=== PATIENT | male | born 1955 | race Caucasian/White ===

== ENCOUNTER → 2019-09-26 11:04 | Outpatient (BNVA) | payer MEDICARE, MEDICAID, SELFPAY | PROVIDERS: Family Provider Nurse Practitioner; Visit Provider Nurse Practitioner | DX: F33.2 Major depressive disorder, recurrent severe without psychotic features (principal); F60.3 Borderline personality disorder; F17.210 Nicotine dependence, cigarettes, uncomplicated | CPT/HCPCS: 99213 ==

== ENCOUNTER → 2019-10-12 13:54 | Outpatient (BNVA) | payer MEDICARE, MEDICAID, SELFPAY | PROVIDERS: Family Provider Nurse Practitioner; Visit Provider Nurse Practitioner | DX: E03.8 Other specified hypothyroidism (principal); J44.9 Chronic obstructive pulmonary disease, unspecified; I10 Essential (primary) hypertension; E78.2 Mixed hyperlipidemia; K21.0 Gastro-esophageal reflux disease with esophagitis; M79.7 Fibromyalgia | CPT/HCPCS: 80053; 84443 ==

== ENCOUNTER → 2019-11-21 07:40 | Outpatient (BNVA) | payer MEDICARE, MEDICAID, SELFPAY | PROVIDERS: Family Provider Nurse Practitioner; Visit Provider Nurse Practitioner | DX: F60.3 Borderline personality disorder (principal); F33.2 Major depressive disorder, recurrent severe without psychotic features | CPT/HCPCS: 99213 ==

== ENCOUNTER → 2020-02-09 07:52 | Outpatient (BNVA) | payer MEDICARE, MEDICAID, SELFPAY | PROVIDERS: Family Provider Nurse Practitioner; Visit Provider Nurse Practitioner | DX: F33.2 Major depressive disorder, recurrent severe without psychotic features (principal); F60.3 Borderline personality disorder | CPT/HCPCS: 99213 ==

== ENCOUNTER → 2020-02-12 09:32 | Outpatient (BNVA) | payer MEDICARE, MEDICAID, SELFPAY | PROVIDERS: Family Provider Nurse Practitioner; Visit Provider Nurse Practitioner | DX: I10 Essential (primary) hypertension (principal); E03.8 Other specified hypothyroidism; J44.9 Chronic obstructive pulmonary disease, unspecified; E78.2 Mixed hyperlipidemia; K21.0 Gastro-esophageal reflux disease with esophagitis; M79.7 Fibromyalgia; R06.02 Shortness of breath | CPT/HCPCS: 80053; 80061; 81000; 84443; 84484; 85025 ==

== ENCOUNTER → 2020-02-13 15:00 | Outpatient (BNVA) | payer MEDICARE, MEDICAID, SELFPAY | PROVIDERS: Family Provider Nurse Practitioner; Visit Provider Nurse Practitioner | DX: I10 Essential (primary) hypertension (principal) | CPT/HCPCS: 71046 ==

== ENCOUNTER 2020-03-07 07:59 | Outpatient (CLI) | payer MEDICARE, MEDICAID, SELFPAY ==
--- NOTE | 2020-03-07 08:10 | ECG_ITS ---
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 Interpretive Statements NAME OF STUDY: LEXISCAN SESTAMIBI STRESS TEST INDICATION: [Chest Pain] Procedure: At the baseline the blood pressure was 134/89mmHg, oxygen saturation 97% with a heart rate of 71 BPM. The electrocardiogram showed normal sinus rhythm, normal axis with normal ST and T waves. Lexiscan was infused over the. Of 20 seconds. A total of 0.4 mg of Lexiscan was infused. The stress phase was continued for total of 5 minutes. Heart rate at the end of stress phase was 79 bpm, oxygen saturation 95% with a blood pressure of 130/69 mmHg. Sestamibi was injected 20 seconds after the Lexiscan injection. Blood pressure at the end of the recovery phase was 131/69 mmHg, oxygen saturation 92% and a heart rate of 74 bpm. Conclusions: 1) Normal EKG response to Lexiscan infusion. 2) No Lexiscan induced chest pain or cardiac arrhythmias. 3) Normal blood pressure and heart rate response. 4) Sestamibi/sestamibi perfusion scan pending see separate report. Electronically Signed On 03-11-2020 12:22:10 CDT by Kelton Holliday M.D. [id number]
--- NOTE | 2020-03-07 08:11 | NMCV_ITS ---
NM elizabeth perf SPECT r/s* [id number] Jason Canela Age: 65 Gender: M : 1955 Exam Date: 03/07/2020 09:36 Ordering Phys: Kelton Holliday M.D ([email or web address]) Technologist: URSULA Kumar Exam Location: [facility] Indications: Chest pain STRESS TEST Please see separate stress test report in [facility] for full findings IMAGE PROTOCOL Rest/Stress 1 Lexiscan Day Radiopharmaceutical Dose (mCi) Administration Site Administered by Rest: Tc-99m 11.0 IV URSULA Kumar Sestamibi Stress:Tc-99m 32.1 IV URSULA Kumar Sestamibi Rest: 07-Mar-2020 60 Discovery 630 Stress: 07-Mar-2020 60 Discovery 630 0.4mg Lexiscan. Images obtained in supine and prone position. SPECT RESULTS Technical Quality: Good Raw Data Analysis: Normal Image Corrections: Patient motion artifact - motion correction applied to supine stress and rest images. Summed Stress Score: 8 Summed Rest Score: 12 Summed Difference Score: 3 PERFUSION FINDINGS There is a small in size, moderate intensity, partially reversible perfusion defect in basal inferolateral and mid inferolateral fried. FUNCTIONAL RESULTS (calculated via Gated SPECT) Stress Image LV EF (%): 50 Stress EDV (mL):137 TID: 1.01 Stress ESV (mL):68 FUNCTIONAL FINDINGS: There is normal left ventricular systolic function. IMPRESSIONS 1) There is a small in size, moderate intensity, partially reversible perfusion defect in basal inferolateral and mid inferolateral fried. This correlates with left circumflex artery territory. However given partial reversibility and presence of artifact, clinical correlation is required. 2) Normal LV systolic function. 3) EKG portion of stress test with was interpreted separately. Kelton Holliday MD (Electronically Signed) Final Date: 07 March 2020 16:55 S
[2020-03-07 08:22] VITALS: BMI 34.7
--- NOTE | 2020-03-07 10:21 | SUR.PREOP ---
Patient reports no pain or discomfort prior to the start of the procedure.
[2020-03-07] MEDS: regadenoson 0.4 Mg/5 ml Syringe IVP (10:22)
[2020-03-07 10:35] VITALS: BP 131/69; PULSE 72
== END 2020-03-07 08:00 | disposition home or self-care (01) ==
LOC: RAD 08:11 → CDL 08:22
PROVIDERS: Family Provider Nurse Practitioner; Visit Provider Internal Medicine
DX: R07.9 Chest pain, unspecified (principal)
CPT/HCPCS: 78452; A9500; J2785

== ENCOUNTER 2020-03-07 10:15 | Outpatient (CLI) | payer MEDICARE, MEDICAID, SELFPAY | END 2020-03-07 23:00 | disposition home or self-care (01) | LOC: CDL 04-15 16:20 | PROVIDERS: PCP Nurse Practitioner; Visit Provider Internal Medicine | DX: R07.9 Chest pain, unspecified (principal) | CPT/HCPCS: 93017 ==

== ENCOUNTER 2020-03-15 08:36 | Outpatient (CLI) | payer MEDICARE, MEDICAID, SELFPAY ==
--- NOTE | 2020-03-15 08:43 | USCV_ITS ---
Jason Canela Age: 65 Gender: M : 1955 Exam Date: 03/15/2020 09:02 Ordering Phys: Kelton Holliday M.D ([email or web address]) Technologist: Reilly Masters [place] [facility] [place]ication: CHEST PAIN BP: 135 / 75 HR: 65 Rhythm: Sinus Technical Quality: Fair MEASUREMENTS (Male / Female) Normal Values 2D ECHO LV Diastolic Diameter PLAX 4.2 cm 4.2 - 5.9 / 3.9 - 5.3 cm LV Systolic Diameter PLAX 2.6 cm IVS Diastolic Thickness 1.1 cm 0.6 - 1.0 / 0.6 - 0.9 cm IVS Systolic Thickness 1.9 cm LVPW Diastolic Thickness 1.1 cm 0.6 - 1.0 / 0.6 - 0.9 cm LVPW Systolic Thickness 1.3 cm LVOT Diameter 2.1 cm LV Ejection Fraction 2D Teich 70.3 % LV Ejection Fraction MOD 2C 51.2 % LV Ejection Fraction 2C AL 50.8 % LA Diameter 4.1 cm LA Width 4.8 cm LA Height 6.1 cm RA Width 3.7 cm RA Height 5.4 cm Aorta at Sinotubular Diameter 1.4 cm M-MODE LV Diastolic Diameter MM 5.7 cm 4.2 - 5.9 / 3.9 - 5.3 cm LV Systolic Diameter MM 3.8 cm LV Ejection Fraction MM Teich 60.9 % IVS Diastolic Thickness MM 1.2 cm 0.6 - 1.0 / 0.6 - 0.9 cm IVS Systolic Thickness MM 1.6 cm LVPW Diastolic Thickness MM 1.6 cm 0.6 - 1.0 / 0.6 - 0.9 cm LVPW Systolic Thickness MM 1.9 cm RV Diastolic Diameter MM 2.4 cm Aortic Annulus Diameter 4.2 cm LA Ao Ratio MM 1.0 MV E Point Septal Separation 0.8 cm DOPPLER AV Peak Velocity 152.0 cm/s LVOT Peak Velocity 86.0 cm/s AV Area Cont Eq vti 2.1 cm squared AV Area Cont Eq pk 1.9 cm squared MV Area PHT 5.0 cm squared Mitral E to A Ratio 0.8 MV E' Velocity 9.0 cm/s Mitral E to MV E' Ratio 7.1 Mitral E to LV E' Lateral Ratio 6.5 Mitral E to LV E' Septal Ratio 7.8 TR Peak Velocity 162.0 cm/s TR Peak Gradient 10.5 mmHg TV Peak E Velocity 101.0 cm/s Right Atrial Pressure 3.0 mmHg Pulmonary Artery Systolic Pressu 13.5 mmHg PV Peak Velocity 73.0 cm/s FINDINGS Left Ventricle Normal left ventricular size and wall thickness. LV systolic function is normal with EF of 50 to 55%. No regional wall motion abnormalities are noted. Grade 1 diastolic dysfunction is present. Right Ventricle The right ventricle is normal in size and function. Right Atrium The right atrium is normal in size. Left Atrium The left atrium is normal in size. Mitral Valve Structurally normal mitral valve without significant stenosis or prolapse. There is no mitral regurgitation. Aortic Valve Structurally normal aortic valve without significant sclerosis or stenosis. There is no aortic regurgitation. Tricuspid Valve Structurally normal tricuspid valve without significant stenosis or regurgitation. RVSP cannot be calculated because of insufficient TR jet. Pulmonic Valve Structurally normal pulmonic valve without significant stenosis. There is no pulmonic regurgitation. Pericardium Normal pericardium without effusion. Aorta Normal ascending aorta dimension. CONCLUSIONS Normal LV systolic function with EF 50 to 55%. Grade 1 diastolic dysfunction. Kelton Holliday MD (Electronically Signed) Final Date: 18 March 2020 07:52 S
== END 2020-03-15 08:37 | disposition home or self-care (01) ==
LOC: US 08:36
PROVIDERS: PCP Nurse Practitioner; Visit Provider Nurse Practitioner
DX: R07.9 Chest pain, unspecified (principal); I51.81 Takotsubo syndrome
CPT/HCPCS: 87635; 93306

== ENCOUNTER → 2020-03-19 06:05 | Day surgery (SDC) | payer MEDICARE, MEDICAID, SELFPAY ==
[2020-03-18 10:17] VITALS: BMI 37.1
[2020-03-19] VITALS (10 sets, daily range): BP systolic 124–164; BP diastolic 85–109; PULSE 67–76; RESP 16–18; TEMP 37.3; O2SAT 92–97
--- NOTE | 2020-03-19 06:00 | XACV_ITS ---
Exam Room: 1 Ht: 178 cm Wt: 117 kg BSA: 2.46 m2 Gender: Male : 1955 Exam Priority: Routine Indication(s): - Abnormal nuclear perfusion study - Chest pain Procedure(s): Procedure Description: Diagnostic procedure Procedure Description: Left Heart Catheterization Procedure Description: Left ventriculography Procedure Description: Coronary Angiography Diagnostic Cath Status: Elective Diagnostic Findings Abnormal stress test. LM has 0% stenosis. LAD has 0% stenosis. RCA has 0% stenosis. mCIRC: Mild 30% stenosis, HÉCTOR: 3 flow. Coronary angiography shows right dominance. Conclusions There is mild coronary artery disease with one vessel disease. Normal left ventricular systolic function. Ejection fraction of 55%. Recommendations Continue current medical management and risk factor modification. Ejection Fraction: 55.0 % Pressures Phase:Rest AO : 111 mmHg / 79 mmHg ( 95 mmHg ) @ 2:30:00 AM 114 mmHg / 79 mmHg ( 97 mmHg ) @ 2:35:00 AM 147 mmHg / 95 mmHg ( 100 mmHg ) @ 2:37:00 AM 147 mmHg / 81 mmHg ( 113 mmHg ) @ 2:48:00 AM 148 mmHg / 81 mmHg ( 115 mmHg ) @ 2:48:00 AM LV : 7 mmHg / -9 mmHg / @ 2:46:00 AM 156 mmHg / 0 mmHg / @ 2:46:00 AM 168 mmHg / -16 mmHg / @ 2:48:00 AM 168 mmHg / -15 mmHg / @ 2:48:00 AM Valves Phase:DefaultPhase AV : 24.0 mmHg @ 8:00:10 AM AV Mean Gradient: 27.0 mmHg @ 8:00:10 AM Clinical Evaluation EBL: 5mL-10mL Procedural Details Pre-Procedure Time Out. Identified patient by full name and date of as verbalized by the patient/guarantor. Does the consent match the physician's order: Yes. Accurate & Complete Informed Consent: Yes. Inpatient/Outpatient History & Physical on Chart: Yes. If H&P is completed, is and addenduem needed: N/A; If yes, is the addendum complete: N/A. Visualize and Verify Site with Patient/Guarantor: N/A. Relevant Radiology Images available: Yes. Pre-op teaching completed and patient verbalized understanding. The risks, benefits, and alternatives of sedation and/or procedure were discussed by physician. The patient agrees to continue. Procedure started. [facility] Clinical Fraility Score: 3: Managing Well. Digital Marketing Analyst Indications: Suspected CAD. Chest Pain Symptom Assessment: Typical Angina Symptoms. Cardiovascular Instability: No. PERRLA. Strong, equal hand rn transitional bilaterally. Lungs clear x 5 lobes. IV Site on Arrival: 20 gauge in the left anticubital. IV Fluids: 0.9% NaCl at KVO. 0 mL infused prior to prosthetics lab technician. Pre Procedural Pulses: bilateral radial was 3+. Pre Procedural Pulses: right dorsalis pedis was 2+. Pre Procedural Pulses: left dorsalis pedis was 1+. Pre Procedural Pulses: bilateral posterior tibial was 1+. Oxygen started at 2liters/min via nasal canula. right groin was prepped with chloroprep then draped in the usual sterile fashion. right radial was prepped with chloroprep then draped in the usual sterile fashion. Physician notified. Baseline sample Acquired. HR: 71 BPM. Equipment: 6F - Radial. Cardiac Cath Pack. ACIST Manifold Kit Model BT 2000. Heparinized Saline (2 units/mL), 1000 mL bag. Physician arrived. Physician scrubbed in. Immediate Pre-Procedure Time Out. Correct Patient: Yes; Correct Procedure: Yes; Correct Site: Yes; Correct Patient Position: Yes; Correct Supplies: Yes; Dried Flammable Prep: Yes; Blood Products Available: N/A. Lidocaine 1% infiltrated to the right radial. Arterial access obtained. A 5 telugu TIG catheter in over the exchange wire. Multiple views taken of right coronary artery. Catheter removed over the exchange wire. A 5 telugu JL4 catheter in over the exchange wire. Multiple views taken of left coronary artery. Patient's family unavailable due to current Covid precautions. Will keep the Daughter, Javier, updated throughout the procedure. The patient's daughter, javier, was updated via telephone by RT Concepcion(R). Physician review of cine films. Catheter removed over the exchange wire. A 5 telugu Angled Pig catheter in over the exchange wire. EDP Sample taken: LV 7/-10,-5; HR: 82 BPM; SpO2: 96%. EDP Sample taken: LV 156/0,14; HR: 79 BPM; SpO2: 97%. LV gram performed in APPIAH @ 10 mL/second for a total of 30 mL. EDP Sample taken: LV 168/-17,18; HR: 80 BPM; SpO2: 97%. Pullback taken: LV 168/-16,20; AO 147/81(113); Mean: 27mmHg, Peak to Peak: 24mmHg, SEP: 11sec/min; HR: 85 BPM; SpO2: 97%. Catheter removed over the exchange wire. Physician review of cine films. Physician scrubbed out. A TR Band was successful obtaining hemostatsis at the Right Radial artery insertion site. TR band placed. Hemostasis obtained. Post Procedure: Pulses reassessed and unchanged. PERRLA. Strong, equal hand rn transitional bilaterally. No VTE prophylaxis required. Medication's Wasted: Lidocaine 1% = 18 mL. Medication's Wasted: Nitro = 49.8 mg. Medication's Wasted: Heparin = 1000 units. Total IV fluids: 63.3 mL. Post-op diagnosis: No nObstructive CAD. Complications: none. Estimated blood loss: 5mL-10mL. Vital chart was stopped. Procedure completed. Patient transferred by wheelchair to CPRU. Site: Right Radial artery Sheath Size: 6 Fr Hemostasis Method: TR Band Hemostasis Success: Successful Procedure Medications Start: 7:20 AM Stop: 7:20 AM Medication: Versed Amount: 1 mg Start: 7:21 AM Stop: 7:21 AM Medication: Fentanyl Amount: 50 mcg Route: I.V. Start: 7: AM Stop: 7: AM Medication: Nitrogylcerin Amount: 200 mcg Route: I.A. Start: 7: AM Stop: 7: AM Medication: Versed Amount: 1 mg Start: 7: AM Stop: 7: AM Medication: Heparin Amount: 5000 units Route: I.V. I, the attending physician, have reviewed and verified all procedure medications. Yes, all medications given per verbal order History/Risk Factors Hypertension: Yes Dyslipidemia: Yes Peripheral Arterial Disease (PAD): No Myocardial Infarction (NV): No Obesity: Yes Renal Disease: No Tobacco Use: Former Dialysis: Current Prior Interventions PCI: No CABG: No Valve Surgery: No Report Signatures Finalized by:Kelton Holliday MD on 03/20/2020 8:53:47 AM
[2020-03-19] MEDS: diphenhydrAMINE 50 mg Capsule PO (06:40)
[2020-03-19 06:55] LABS: Basophils % 0.8 %; Eosinophils # 0.4 10^3/uL (0.0-0.8); Hematocrit 44.9 % (42.0-52.0); Hemoglobin 14.1 g/dL (11.7-16.6); Lymphocytes # 1.3 10^3/uL (0.8-4.8); Lymphocytes % 24.9 %; Mean Corpuscular HGB Conc 31.4 g/dL (30.0-36.0); Mean Corpuscular Hemoglobin 30.7 pg (28.0-34.0); Mean Corpuscular Volume 97.6 fL (80-94); Mean Platelet Volume 10.3 fL (7.4-10.4); Monocytes # 0.6 10^3/uL (0.2-0.9); Monocytes % 11.7 %; Neutrophils # 2.73 10^3/uL (1.8-7.7); Neutrophils % 54.2 %; Nucleated Red Blood Cells % 0 %; Platelet Count 314 10^3/cmm (130-400); Red Cell Distribution Width 12.6 % (12.1-15.1)
[2020-03-19 07:16] LABS: Anion Gap 11.6 (5-19); Blood Urea Nitrogen 6 mg/dL (8-23); Calcium 10.1 mg/dL (8.5-10.5); Carbon Dioxide 28 mmol/L (22-29); Chloride 104 mmol/L (98-107); Glomerular Filtration Rate 97.3 mL/min (90-130); Glucose 105 mg/dL (65-115); Osmolality Calculated 286 mOsm/kg (285-295); Potassium 3.6 mmol/L (3.5-5.1); Sodium 140 mmol/L (136-145)
--- NOTE | 2020-03-19 07:16 | W.PM.OPSUD ---
Surgery/Procedure H&P Update DATE OF PROCEDURE: March 19, 2020 DATE H&P PERFORMED: 02/26/20 H&P UPDATE INFORMATION: I have reviewed H&P completed within last 30 days and I have examined patient prior to procedure PREOP DIAGNOSIS: Abnormal stress test/Chest pain PRIMARY INDICATION FOR PROCEDURE: Abnormal stress test/Chest pain PLANNED PROCEDURE: Operation Date: 03/19/20 07:00 Proposed Procedures p Cardiac Catheterization(Left) - Kelton Holliday M.D PATIENT REASSESSED PRIOR TO SEDATION, WITH NO CHANGE NOTED: Yes PHYSICAL EXAM: alert and oriented x 3 AIRWAY EVAL/ANESTHESIA PLAN: ASA III, Risks, benefits & alternatives of sedation and/or procedure discussed and Patient agrees to continue as planned
[2020-03-19 07:33] LABS: INR 1.06 (0.8-1.2)
--- NOTE | 2020-03-19 09:23 | PC.NURSE ---
TR Band 2ml air released from TR band at this time per protocol. Site unremarkable, no hematoma or bleeding noted at R radial artery site, pulse palpable. No c/o pain. No needs voiced. Will monitor.
--- NOTE | 2020-03-19 10:00 | PC.NURSE ---
TR Band Removed TR band removed at this time, no hematoma or bleeding noted, site unremarkable. Will monitor.
--- NOTE | 2020-03-19 11:06 | PC.NURSE ---
Discharged Discharge instructions given to pt, verbalized understanding. Pt taken to lobby via w/c and discharged home with daughter.
== END | disposition home or self-care (01) ==
PROVIDERS: PCP Nurse Practitioner; Visit Provider Internal Medicine
DX: I25.10 Atherosclerotic heart disease of native coronary artery without angina pectoris (principal); I10 Essential (primary) hypertension; J43.9 Emphysema, unspecified; E03.9 Hypothyroidism, unspecified; E78.2 Mixed hyperlipidemia; Z87.891 Personal history of nicotine dependence
CPT/HCPCS: 12345; 36415; 80048; 85025; 85610; 93452; C1769; C1887; C1894; J1644; J2250; J3010; J3490; J7030; Q0163; Q9967

== ENCOUNTER → 2020-03-27 09:35 | Outpatient (BNVA) | payer MEDICARE, MEDICAID, SELFPAY | PROVIDERS: PCP Nurse Practitioner; Visit Provider Nurse Practitioner Family | DX: I25.119 Atherosclerotic heart disease of native coronary artery with unspecified angina pectoris (principal); E78.2 Mixed hyperlipidemia; I10 Essential (primary) hypertension | CPT/HCPCS: 80048 ==

== ENCOUNTER → 2020-05-09 08:39 | Outpatient (BNVA) | payer MEDICARE, MEDICAID, SELFPAY | PROVIDERS: PCP Nurse Practitioner; Visit Provider Nurse Practitioner | DX: F60.3 Borderline personality disorder (principal); F33.2 Major depressive disorder, recurrent severe without psychotic features | CPT/HCPCS: 99213 ==

== ENCOUNTER → 2020-06-17 16:50 | Outpatient (BNVA) | payer MEDICARE, MEDICAID, SELFPAY | PROVIDERS: PCP Nurse Practitioner; Visit Provider Nurse Practitioner | DX: I10 Essential (primary) hypertension (principal); E03.8 Other specified hypothyroidism; J44.9 Chronic obstructive pulmonary disease, unspecified | CPT/HCPCS: 71046; 80053; 80061; 80178; 81000; 84443; 85025 ==

== ENCOUNTER 2020-06-19 10:46 | Inpatient (IN) | payer MEDICARE, MEDICAID, SELFPAY ==
[2020-06-19 10:58] VITALS: BP 175/98; PULSE 67; RESP 18; TEMP 36.9; O2SAT 94; BMI 35.4
--- NOTE | 2020-06-19 11:23 | CT_ITS ---
WS: [id number] CT HEAD NONCONTRAST HISTORY: new onset hallucinations TECHNIQUE: Contiguous axial imaging performed through the brain in 2.5 mm imaging. Bone and soft tiss ue windows. Sagittal and coronal reformats reviewed. All CT scans at [facility] use at ast one of these dose optimization techniques: automated exposure control; mA and/or kV adjustment pe r patient size (includes targeted exams where dose is matched to clinical indication); or iterative r econstruction. DLP: 788.66 mGy-cm. COMPARISON: 04/17/2011 No acute intracranial hemorrhage, midline shift or mass effect. Mild atrophy and chronic ischemic disease. Bilateral benign basal ganglia calcifications. Ventricles: Normal size with no hydrocephalus. Paranasal sinuses: As visualized are clear. Mastoid air cells: Fluid opacification of the maxillary air cells bilaterally, LEFT greater than RIGH T. Calvarium and scalp: Skull is intact with no soft tissue edema or swelling. Mild atherosclerosis distal vertebral arteries and the intracranial carotid arteries. CT/CT head wo con* [id number] IMPRESSION: 1. No acute intracranial hemorrhage or edema. 2. Mild atrophy and chronic ischemic disease.
--- NOTE | 2020-06-19 11:24 | W.ED.PSYCH ---
HPI - Psych General: Chief Complaint: Psychiatric Symptoms Stated Complaint: phy ref/hallucinations Time Seen by Provider: 06/19/20 11:02 History of Present Illness: HPI Narrative: 65-year-old male patient presents to the emergency department with his daughter. His daughter reports 2-week onset of worsening auditory and visual hallucinations. He is cared for by behavioral health at [facility] [place] as an outpatient. Remains on lithium due to bipolar disorder. He woke this morning stating there are people in the home, they were under the close, he reports could not hear what they were saying, states mumbling. His daughter reports concern as he has become more confused, states his brother lives in the home behind him, he has lived in the same home for 27 years and appears disoriented to current living environment. She reports took him to his primary care yesterday, Brannon Valladares, work-up with chest x-ray and serology testing negative for acute findings. She was advised to bring him to the hospital today as she does not feel he is safe in his own home. She reports decreased sleeping at night, increased sleep during the day. States trazodone does not seem to be effective for insomnia. History of COPD, bipolar disorder, coronary artery disease. Left heart cath completed 03/19/2020 without obstructive lesions identified. + Use of hydrocodone for pain management. MD complaint: altered mental status Onset (ago): day(s) (14) Duration: getting worse Relieving factors: none Exacerbating factors: none Associated psychiatric symptoms: auditory hallucinations and visual hallucinations Associated symptoms: Reports auditory hallucinations and visual hallucinations; Deny homicidal ideation or suicidal ideation Treatments prior to arrival: none Review of Systems General: Reports: 10 or more systems reviewed and unremarkable except in HPI and below Const: Denies: fever(s), chills, fatigue, malaise or diaphoresis Eyes: Denies: blurry vision or eye redness ENMT: Denies: throat pain, dental pain or disequilibrium Card: Denies: chest pain, palpitations or irregular heart rhythm Resp: Denies: dyspnea, productive cough, non-productive cough or wheezing GI: Denies: abdominal pain, nausea or vomiting : Denies: difficulty urinating, dysuria or urinary urgency Musc: Denies: neck pain or back pain Skin/Breast: Denies: rash or pruritus Neuro: Reports: confusion and difficulty communicating thoughts; Denies: headache(s), weakness in extremities, dizziness or behavioral changes Psych: Reports: mood swings (bipolar disorder), difficulty concentrating, visual hallucinations and auditory hallucinations; Denies: hopelessness, change in appetite, irritability, suicidal ideation or homicidal ideation Shorty/Lymph: Denies: easy bruising PFSH ED PFSH: Medical History Adult onset hypothyroidism Alcohol dependence, in remission Borderline personality disorder COPD with chronic bronchitis and emphysema Coronary artery disease Fibromyalgia GERD with esophagitis History of tobacco abuse Hypertension Major depressive disorder, recurrent severe without psychotic features Mixed hyperlipidemia Nicotine dependence, cigarettes, uncomplicated Surgical History History of ankle surgery Left ORIF History of removal of cyst Back Family History Other Cancer Diabetes Hypertension Social History Smoking and tobacco status: former smoker Second hand smoke exposure: No Smoking risk assessment/counseling performed?: Yes Tobacco counseling given: counseling >3 minutes Alcohol intake: former Desire information about alcohol rehabilitation?: No Counseling given: No Desire information about substance/drug rehabilitation?: No Counseling given: No Adopted: No Caregiver/support person: No Lives independently: Yes Housing: Manufactured/Mobile home Marital status: service: No Current occupational status: disabled History of recent travel: No Current gender identity: Male Physical Exam Const: COMMON NORMALS: no acute distress, alert and well nourished EXAM LIMITATIONS: altered mental status GENERAL APPEARANCE: cooperative, comfortable, well kempt and well hydrated; not in distress, not anxious, not combative and not frail appearing NUTRITIONAL APPEARANCE: thin ORIENTATION/CONSCIOUSNESS: Yes awake, Yes oriented to person, Yes oriented to place and Yes confused (to current time and events, month and year); not oriented to time HENMT: COMMON NORMALS: normocephalic, Normal external nose present and moist oral mucous membranes HEAD & SCALP: normocephalic NOSE: Normal external nose present Eye: COMMON NORMALS: Equal, round and reactive pupils present and EOMs intact bilaterally GENERAL EYE: appearance normal, both eyes and all related structures PUPIL: Yes Equal, round and reactive pupils present Neck/C-Spine: COMMON NORMALS: full ROM, no lymphadenopathy and no meningeal signs GENERAL: Yes normal visual inspection and Yes trachea midline CERVICAL SPINE: Yes cervical ROM normal Lymph: LYMPHATIC: no lymphadenopathy noted Chest: COMMONS NORMALS: normal inspection of the chest and normal palpation of entire chest wall CHEST: No abnormal inspection of the chest and No localized rib tenderness with anteroposterior compression Resp: COMMON NORMALS: normal respiratory effort, No retractions and clear to auscultation bilaterally EFFORT & INSPECTION: Yes able to speak in complete sentences and No uses accessory muscles AUSCULTATION: clear to auscultation bilaterally Cardio: COMMON NORMALS: regular rate, regular rhythm, S1 normal heart sound present, S2 normal heart sound present and Peripheral pulses 2+ throughout RATE: regular rate RHYTHM: regular rhythm HEART SOUNDS: S1 normal heart sound present and S2 normal heart sound present PERIPHERAL PULSES: Peripheral pulses 2+ throughout GI: COMMON NORMALS: Normal to inspection, nondistended, normoactive bowel sounds present, Soft to palpation and non-tender INSPECTION: Yes normal to inspection, No Abdominal wall edema, No abdominal distension and No visible herniation PALPATION: Yes Soft to palpation and No Hernia present : COMMON NORMALS: Yes no CVA tenderness BLADDER/KIDNEY EXAM: Yes no CVA tenderness Back/Pelvis: COMMON NORMALS: no CVA tenderness and thoracic and lumbar spine normal to inspection Extremity: COMMON NORMALS: normal to inspection and capillary refill normal Neuro: EZRA COMA SCALE: document GCS findings Ezra coma scale eye opening: Spontaneous Ezra coma scale verbal response: Confused [place] coma scale motor response: Obey commands [place] coma scale total score: 14 COMMON NORMALS: no focal motor deficits SENSORIUM/ORIENTATION: Yes alert, Yes oriented to person, Yes oriented to place, No oriented to time and No Orientation impaired MENINGEAL SIGNS: Yes no meningeal signs SPEECH: speech normal GAIT: Yes Normal gait present MOTOR EXAM: 5/5 motor strength present throughout, no tremor noted and Normal motor muscle tone present throughout Psych: COMMON NORMALS: mental status grossly normal, cooperative and speech normal APPEARANCE: Yes grossly normal and Yes well kempt ATTITUDE: Yes calm and Yes engaged ACTIVITY/MOTOR BEHAVIOR: Yes appropriate eye contact SPEECH: Yes normal speech MOOD & AFFECT: No irritable, No tearful and No fearful THOUGHT PROCESS: disorganized and confused THOUGHT CONTENT: No Suicidality present, No Homicidality present and Yes Hallucination(s) present auditory and visual ATTENTION/CONCENTRATION: Yes attention grossly intact INSIGHT: Fair insight present (Psych) JUDGEMENT: Fair judgement present (Psych) Skin: COMMON NORMALS: no rashes or lesions noted, no wounds and turgor normal GENERAL SKIN EXAM: no rashes or lesions noted and turgor normal RASHES: no rashes HAIR: normal MDM - Psych Lab Data: Labs: Lab Results 06/19/20 06/19/20 06/19/20 Range/Units 11:03 11:03 11:03 WBC 6.9 (4.0-10.0) 10^3/ uL RBC 4.67 (4.1-5.3) 10^6/u L Hgb 14.3 (11.7-16.6) g/dL Hct 44.3 (42.0-52.0) % MCV 94.9 H (80-94) fL MCH 30.6 (28.0-34.0) pg MCHC 32.3 (30.0-36.0) g/dL RDW 12.1 (12.1-15.1) % Plt Count 360 (130-400) 10^3/c mm MPV 10.4 (7.4-10.4) fL Neut % (Auto) 71.5 % Lymph % (Auto) 16.3 % [place] % (Auto) 7.3 % Eos % (Auto) 4.2 % Baso % (Auto) 0.4 % Neut # (Auto) 4.91 (1.8-7.7) 10^3/u L Lymph # (Auto) 1.1 (0.8-4.8) 10^3/u L [place] # (Auto) 0.5 (0.2-0.9) 10^3/u L Eos # (Auto) 0.3 (0.0-0.8) 10^3/u L Baso # (Auto) 0.0 (0.0-0.1) 10^3/u L Nucleated RBC % (a uto) 0 % Nucleated RBCs # 0.0 /100WBC Sodium 137 (136-145) mmol/L Potassium 4.0 (3.5-5.1) mmol/L Chloride 102 (98-107) mmol/L Carbon Dioxide 26 (22-29) mmol/L Anion Gap 13.0 (5-19) BUN 8 (8-23) mg/dL Creatinine 0.7 (0.7-1.2) mg/dL GFR Calculation 113.5 (90-130) mL/min Glucose 104 (65-115) mg/dL Calculated Osmolal ity 283 L (285-295) mOsm/k g Calcium 10.3 (8.5-10.5) mg/dL Total Bilirubin 0.5 (0.15-1.2) mg/dL AST 10 (0-40) U/L ALT 12 (0-41) U/L Alkaline Phosphata se 82 (40-130) IU/L Ammonia (16-60) umol/L Total Protein 7.4 (6.6-8.7) g/dL Albumin 4.2 (3.5-5.2) g/dL Globulin 3.2 (1.3-4.6) g/dL Urine Color (Yellow) Urine Appearance (CLEAR) Urine pH (5-7) Ur Specific Gravit y (1.005-1.030) Urine Protein (Negative) Urine Glucose (UA) (Normal) Urine Ketones (Negative) Urine Blood (Negative) Urine Nitrate (Negative) Urine Bilirubin (Negative) Prot Sulfosalicyli c Acd (Negative) Urine Urobilinogen (Negative) mg/dL Ur Leukocyte Erika ase (Negative) Salicylates < 0.3 L (3-10) mg/dL Urine Opiates Scre en (Negative) ng/mL Acetaminophen < 5.0 L (10-30) ug/mL Ur Barbiturates Sc reen (Negative) ng/mL Ur Phencyclidine S crn (Negative) ng/mL Ur Amphetamines Sc reen (Negative) ng/mL U Benzodiazepines Scrn (Negative) ng/mL [place] 1.3 H (0.6-1.2) mmol/L Urine Cocaine Scre en (Negative) ng/mL U Marijuana (THC) Screen (Negative) ng/mL Ethyl Alcohol < 10 (0-10) mg/dL 06/19/20 06/19/20 06/19/20 Range/Units 11:32 11:32 14:49 WBC (4.0-10.0) 10^3/ uL RBC (4.1-5.3) 10^6/u L Hgb (11.7-16.6) g/dL Hct (42.0-52.0) % MCV (80-94) fL MCH (28.0-34.0) pg MCHC (30.0-36.0) g/dL RDW (12.1-15.1) % Plt Count (130-400) 10^3/c mm MPV (7.4-10.4) fL Neut % (Auto) % Lymph % (Auto) % [place] % (Auto) % Eos % (Auto) % Baso % (Auto) % Neut # (Auto) (1.8-7.7) 10^3/u L Lymph # (Auto) (0.8-4.8) 10^3/u L [place] # (Auto) (0.2-0.9) 10^3/u L Eos # (Auto) (0.0-0.8) 10^3/u L Baso # (Auto) (0.0-0.1) 10^3/u L Nucleated RBC % (a uto) % Nucleated RBCs # /100WBC Sodium (136-145) mmol/L Potassium (3.5-5.1) mmol/L Chloride (98-107) mmol/L Carbon Dioxide (22-29) mmol/L Anion Gap (5-19) BUN (8-23) mg/dL Creatinine (0.7-1.2) mg/dL GFR Calculation (90-130) mL/min Glucose (65-115) mg/dL Calculated Osmolal ity (285-295) mOsm/k g Calcium (8.5-10.5) mg/dL Total Bilirubin (0.15-1.2) mg/dL AST (0-40) U/L ALT (0-41) U/L Alkaline Phosphata se (40-130) IU/L Ammonia 24 (16-60) umol/L Total Protein (6.6-8.7) g/dL Albumin (3.5-5.2) g/dL Globulin (1.3-4.6) g/dL Urine Color Yellow (Yellow) Urine Appearance Clear (CLEAR) Urine pH 9 H (5-7) Ur Specific Gravit y 1.010 (1.005-1.030) Urine Protein Neg (Negative) Urine Glucose (UA) Norm (Normal) Urine Ketones Negative (Negative) Urine Blood Neg (Negative) Urine Nitrate Negative (Negative) Urine Bilirubin Neg (Negative) Prot Sulfosalicyli c Acd Negative (Negative) Urine Urobilinogen Norm (Negative) mg/dL Ur Leukocyte Erika ase Negative (Negative) Salicylates (3-10) mg/dL Urine Opiates Scre en Positive H (Negative) ng/mL Acetaminophen (10-30) ug/mL Ur Barbiturates Sc reen Negative (Negative) ng/mL Ur Phencyclidine S crn Negative (Negative) ng/mL Ur Amphetamines Sc reen Negative (Negative) ng/mL U Benzodiazepines Scrn Negative (Negative) ng/mL [place] (0.6-1.2) mmol/L Urine Cocaine Scre en Negative (Negative) ng/mL U Marijuana (THC) Screen Negative (Negative) ng/mL Ethyl Alcohol (0-10) mg/dL Imaging Data^: CXR: Radiologist's impression: [address] [address] XRay Report Signed Patient: Jason Canela #: [id number] : 6Acct#:[id number] Age/Sex: 65 / MADM Date: 06/17/20 Loc: ALTRoom/Bed: Attending Dr: Brannon RODRIGUEZ Ordering Provider/Ordering MD: Brannon Valladares APN Date of Service: 06/17/20 Procedure(s): XR chest 2V* [id number] Accession Number(s): [id number] Report Number: [id number] PROCEDURE INFORMATION: Exam: XR Chest, 2 Views Exam date and time: 06/17/2020 4:59 PM Age: 65 years old Clinical indication: Condition or disease; Lung condition and disease; Copd; Complications not specified; Prior surgery; Surgery type: Heart cath; Additional info: J44.9 - chronic obstructive pulmonary disease, unspecified TECHNIQUE: Imaging protocol: XR of the chest Views: 2 views. COMPARISON: CR XR chest 2V* [id number] 02/13/2020 2:59 PM FINDINGS: Lungs: There is overinflation of the lungs consistent with COPD. No pneumonia is seen. Pleural space: Unremarkable. No pleural effusion. No pneumothorax. Heart/Mediastinum: Unremarkable. No cardiomegaly. Bones/joints: Degenerative changes are present in the spine with osteophyte formation. XR/XR chest 2V* [id number] IMPRESSION: 1. Overinflated lungs consistent with COPD. 2. No acute abnormalities are seen. Dictated By:Jason Sesay Signed By:Jason SesaySignmp Date/Time:06/18/20721 DD/ 9 CT Head: Radiologist's impression: [address] [address] [address] Scan Report Signed Patient: Jason Canela #: [id number] : 6Acct#:[id number] Age/Sex: 65 / MADM Date: 06/19/20 Loc: ERRoom/Bed: Attending Dr: Ordering Provider/Ordering MD: Myrtle Beckett Date of Service: 06/19/20 Procedure(s): CT head wo con* [id number] Accession Number(s): [id number] Report Number: [id number] WS: [id number] CT HEAD NONCONTRAST HISTORY: new onset hallucinations TECHNIQUE: Contiguous axial imaging performed through the brain in 2.5 mm imaging. Bone and soft tissue windows. Sagittal and coronal reformats reviewed. All CT scans at [facility] use at least one of these dose optimization techniques: automated exposure control; mA and/or kV adjustment per patient size (includes targeted exams where dose is matched to clinical indication); or iterative reconstruction. DLP: 788.66 mGy-cm. COMPARISON: 04/17/2011 No acute intracranial hemorrhage, midline shift or mass effect. Mild atrophy and chronic ischemic disease. Bilateral benign basal ganglia calcifications. Ventricles: Normal size with no hydrocephalus. Paranasal sinuses: As visualized are clear. Mastoid air cells: Fluid opacification of the maxillary air cells bilaterally, LEFT greater than RIGHT. Calvarium and scalp: Skull is intact with no soft tissue edema or swelling. Mild atherosclerosis distal vertebral arteries and the intracranial carotid arteries. CT/CT head wo con* [id number] IMPRESSION: 1. No acute intracranial hemorrhage or edema. 2. Mild atrophy and chronic ischemic disease. Dictated By:Cassy Schmidt DO Signed By:Cassy Schmidt DOSigned Date/Time:06/19/20 1254 DD/ 1251 Discharge Plan Discharge Admit Provider: Jerry Colon Coding Level of Care Code ED Generation Technician for Chg Fwd Exam Comprehensive
[2020-06-19 11:29] LABS: Basophils % 0.4 %; Eosinophils # 0.3 10^3/uL (0.0-0.8); Eosinophils % 4.2 %; Hematocrit 44.3 % (42.0-52.0); Hemoglobin 14.3 g/dL (11.7-16.6); Lymphocytes # 1.1 10^3/uL (0.8-4.8); Lymphocytes % 16.3 %; Mean Corpuscular HGB Conc 32.3 g/dL (30.0-36.0); Mean Corpuscular Hemoglobin 30.6 pg (28.0-34.0); Mean Corpuscular Volume 94.9 fL (80-94); Mean Platelet Volume 10.4 fL (7.4-10.4); Monocytes # 0.5 10^3/uL (0.2-0.9); Monocytes % 7.3 %; Neutrophils # 4.91 10^3/uL (1.8-7.7); Neutrophils % 71.5 %; Nucleated Red Blood Cells % 0 %; Platelet Count 360 10^3/cmm (130-400); Red Blood Count 4.67 10^6/uL (4.1-5.3); Red Cell Distribution Width 12.1 % (12.1-15.1); White Blood Count 6.9 10^3/uL (4.0-10.0)
[2020-06-19 11:44] LABS: Lithium 1.3 mmol/L (0.6-1.2)
[2020-06-19 11:45] LABS: Alanine Aminotransferase 12 U/L (0-41); Albumin Level 4.2 g/dL (3.5-5.2); Alkaline Phosphatase 82 IU/L (40-130); Aspartate Amino Transferase 10 U/L (0-40); Blood Urea Nitrogen 8 mg/dL (8-23); Calcium 10.3 mg/dL (8.5-10.5); Carbon Dioxide 26 mmol/L (22-29); Chloride 102 mmol/L (98-107); Globulin 3.2 g/dL (1.3-4.6); Glomerular Filtration Rate 113.5 mL/min (90-130); Glucose 104 mg/dL (65-115); Osmolality Calculated 283 mOsm/kg (285-295); Sodium 137 mmol/L (136-145); Total Bilirubin 0.5 mg/dL (0.15-1.2); Total Protein 7.4 g/dL (6.6-8.7)
[2020-06-19 11:48] LABS: Acetaminophen < 5.0 ug/mL (10-30); Alcohol Level < 10 mg/dL (0-10); Salicylate < 0.3 mg/dL (3-10)
[2020-06-19 11:58] LABS: Amphetamines Screen Urine Negative (Negative); Barbiturates Screen Urine Negative (Negative); Benzodiazepines Screen Urine Negative (Negative); Cocaine Screen Urine Negative (Negative); Opiate Screen Urine Positive (Negative); PCP Screen Urine Negative (Negative); THC Screen Urine Negative (Negative)
[2020-06-19 12:58] LABS: Add Urine Microscopic? NO
[2020-06-19 13:08] LABS: Bilirubin Urine Neg (Negative); Blood Urine Neg (Negative); Glucose Urine UA Norm (Normal); Ketones Urine Negative (Negative); Nitrate Urine Negative (Negative); Protein Urine Neg (Negative); Urine Appearance Clear (CLEAR); Urine Color Yellow (Yellow); Urobilinogen Urine Norm (Negative); pH Urine 9 (5-7)
[2020-06-19 13:09] LABS: Leukocyte Esterase Urine Negative (Negative); Sulfosalicylic Acid Urine Negative (Negative)
--- NOTE | 2020-06-19 14:38 | P.CONIM_ITS ---
Providers/Reason For Consult Consulting Physican/Specialty*: Kayley Mesa MD, Hospitalist Reason for Consult*: Medical management Requesting Physcian: Dr. Colon Attending Physician: Dr. Colon Primary Care Provider: MICHAEL Duenas History of Present Illness History of Present Illness Jason Canela is a 65 year old male with PMHx noted below with PMHx noted below presents accompanied by his daughter due to ongoing and worsening auditory and visual hallucinations, intermittent intervals of confusion for the past several days. Daughter is at bedside and provides much of the history as patient is quite difficult to understand often with noted mumbling and slurred speech and words that do not seem to make sense. He is very pleasant during my encounter and cooperative, able to follow simple commands. Patient was living alone and family has been checking on him regularly, daughter and her mother have been checking on the patient, setting out his medications making sure he takes his medications as prescribed, deny any changes to his medications recently, no over or under medication. He has a chronic unsteady gait, has had some intermittent confusion in the past but this seems to have been more obvious recently, with him noted to be talking to people who were not there and stating that the voices communicating with him. He has not had any seizure-like activity that they witnessed, no episodes of bowel incontinence though he has some intermittent urinary incontinence. He has a known history of bipolar disorder and is on lithium chronically. Due to concern for ongoing deterioration patient's daughter took him to see his primary care provider who ran some tests including CBC, CMP, TSH, as far as she knows labs were normal except for elevated TSH. She has been trying to contact patient psychiatrist with no success. Patient has not had any violent or behavioral outbursts, has not had any suicidal or homicidal thoughts as far as she is aware. Has battled severe depression in the past often triggered by relational issues, initially when he got and after the passing of his long-term partner, both times he required psychiatric evaluation on an inpatient basis. He has not had any recurrent falls and nothing recently. He quit smoking 1 to 2 years ago, does not drink alcohol and does not use any drugs. Work-up so far indicates normal CBC, normal chemistry, normal LFTs, urinalysis that is negative, urine drug screen that is positive for opiates which patient takes chronically, lithium level of 1.3, negative EtOH level, unremarkable CT head. Blood pressure somewhat elevated but vital signs are otherwise stable. Hospitalist consult is requested for medical management and to investigate other non-psychiatric causes for behavioral change. He will be admitted to [facility]. Review of Systems Const: Reports: change in sleep pattern (poor sleep); Denies: fever(s), chills, change in appetite or fatigue Eyes: Denies: change in vision ENMT: Denies: odynophagia Card: Denies: chest pain, swelling of feet/ankles or lightheadedness Resp: Denies: dyspnea, productive cough or non-productive cough GI: Denies: abdominal pain, nausea, vomiting, fecal incontinence or hematoch ezia : Reports: urinary incontinence (intermittent, chronic) Musc: Denies: back pain Skin/Breast: Reports: dry skin; Denies: rash Neuro: Reports: weakness in extremities and confusion; Denies: numbness in extremities, frequent falls or seizure-like activity Psych: Reports: visual hallucinations and auditory hallucinations; Denies: anxiety, tactile hallucinations, suicidal ideation or homicidal ideation Meds/Allergies Home Medications and Allergies Home Medications Medication Instructions Recorded Confirmed Last Taken Type hydrocodone 10 mg-acetaminophen 1 - 2 tab PO Q4H PRN tab 09/26/19 06/19/20 06/19/20 09:00 History 325 mg tablet albuterol sulfate 90 mcg/actuation 2 inh INHALATION Q4H PRN #18 gm 02/12/20 06/19/20 Unknown Rx aerosol inhaler fluticasone fur. 100 mcg-umeclid 1 inh INHALATION DAILY #28 each 02/12/20 06/19/20 06/19/20 Rx 62.5 mcg-vilant 25 mcg inhalat.powder metoprolol tartrate 25 mg tablet 12.5 mg PO BID #90 tab 03/27/20 06/19/20 Unknown Rx atorvastatin 20 mg tablet 20 mg PO DAILY #30 tab 04/28/20 06/19/20 Unknown Rx famotidine 40 mg tablet 40 mg PO Q12H #60 tab 04/28/20 06/19/20 Unknown Rx hydralazine 50 mg tablet 50 mg PO Q12H #60 tab 04/28/20 06/19/20 Unknown Rx meloxicam 15 mg tablet 15 mg PO DAILY #30 tab 04/28/20 06/19/20 Unknown Rx isosorbide mononitrate 30 mg 30 mg PO QAM #30 tab 04/30/20 06/19/20 Unknown Rx tablet,extended release 24 hr levothyroxine 100 mcg tablet 100 mcg PO DAILY #30 tab 04/30/20 06/19/20 Unknown Rx lisinopril 20 1 tab PO DAILY #30 tab 04/30/20 06/19/20 Unknown Rx mg-hydrochlorothiazide 25 mg tablet duloxetine 60 mg capsule,delayed 120 mg PO DAILY #60 cap 05/08/20 06/19/20 Unknown Rx release acetaminophen [Tylenol Extra 1,000 - 1,500 mg PO PRN 06/19/20 06/19/20 Unknown History Strength] diphenhydramine-acetaminophen 2 - 3 tab PO PRN 06/19/20 06/19/20 06/18/20 History [Tylenol PM Extra Strength] lithium carbonate 300 mg PO QAM 06/19/20 06/19/20 Unknown History lithium carbonate 600 mg PO BEDTIME 06/19/20 06/19/20 Unknown History trazodone 100 mg PO BEDTIME 06/19/20 06/19/20 Unknown History Allergies Allergy/AdvReac Type Severity Reaction Status Date / Time No Known Allergies Allergy Verified 06/19/20 11:35 PFSH Acute PFSH: Medical History Adult onset hypothyroidism Alcohol dependence, in remission Borderline personality disorder COPD with chronic bronchitis and emphysema Coronary artery disease Fibromyalgia GERD with esophagitis History of tobacco abuse Hypertension Major depressive disorder, recurrent severe without psychotic features Mixed hyperlipidemia Nicotine dependence, cigarettes, uncomplicated Surgical History History of ankle surgery Left ORIF History of removal of cyst Back Family History (Updated 06/19/20 @ 19:39 by Kayley Mesa MD) Other Cancer Diabetes Hypertension Psychiatric illness Social History (Updated 06/19/20 @ 19:40 by Kayley Mesa MD) Smoking and tobacco status: former smoker Quit status (tobacco): has quit using tobacco Year quit tobacco: 1-2 yrs ago Second hand smoke exposure: No Smoking risk assessment/counseling performed?: Yes Tobacco counseling given: co unseling >3 minutes Alcohol intake: former Desire information about alcohol rehabilitation?: No Counseling given: No Desire information about substance/drug rehabilitation?: No Counseling given: No Adopted: No Caregiver/support person: No Lives independently: Yes Housing: Manufactured/Mobile home Marital status: service: No Current occupational status: disabled History of recent travel: No Current gender identity: Male Vitals/I&O/Wt Last Vital Signs Temp 98.5 F 06/19/20 10:58 Pulse 67 06/19/20 10:58 Resp 18 06/19/20 10:58 BP 175/98 06/19/20 10:58 Pulse Ox 94 06/19/20 10:58 Weight last 48 hrs Weight 118.388 kg Physical Exam Const: COMMON NORMALS: no acute distress and alert GENERAL APPEARANCE: cooperative, comfortable and disheveled NUTRITIONAL APPEARANCE: overweight ORIENTATION/CONSCIOUSNESS: Yes awake and Yes confused HENMT: COMMON NORMALS: normocephalic, atraumatic, hearing grossly normal bilaterally and moist oral mucous membranes HEAD & SCALP: normocephalic and atraumatic TEETH & GINGIVA: Yes poor dentition Eye: COMMON NORMALS: Equal, round and reactive pupils present, EOMs intact bilaterally and conjunctivae normal CONJUNCTIVA: Yes conjunctivae normal PUPIL: Yes Equal, round and reactive pupils present Neck/C-Spine: COMMON NORMALS: full ROM GENERAL: Yes normal visual inspection and Yes trachea midline Resp: COMMON NORMALS: normal respiratory effort, No retractions, No use of accessory muscles and clear to auscultation bilaterally EFFORT & INSPECTION: Yes able to speak in complete sentences, Yes symmetric chest movement and No tachypneic AUSCULTATION: clear to auscultation bilaterally OTHER: -on RA Cardio: COMMON NORMALS: regular rate, regular rhythm, S1 normal heart sound present, S2 normal heart sound present and No murmurs present (Cardio) RATE: regular rate RHYTHM: regular rhythm HEART SOUNDS: S1 normal heart sound present and S2 normal heart sound present GI: COMMON NORMALS: Normal to inspection, nondistended, normoactive bowel sounds present, Soft to palpation and non-tender INSPECTION: Yes central obesity PALPATION: Yes Soft to palpation Extremity: COMMON NORMALS: normal to inspection, full ROM, no clubbing, cyanosis or edema and no pedal edema Neuro: COMMON NORMALS: moves all extremities, no focal motor deficits and no sensory deficits noted SENSORIUM/ORIENTATION: Yes alert and Yes Orientation impaired COORDINATION/BALANCE: does not sway with eyes open SPEECH: abnormal speech Details: garbled GAIT: Yes Other gait observations present (initially shuffling gait) MOTOR EXAM: 5/5 motor strength present throughout and Tremors during motor activity present (mild resting RUE tremor) COORDINATION: does not sway with eyes open Psych: COMMON NORMALS: cooperative and normal affect ATTITUDE: Yes calm ACTIVITY/MOTOR BEHAVIOR: Yes appropriate eye contact SPEECH: Yes slurred THOUGHT PROCESS: confused and Loose association thought process present THOUGHT CONTENT: Yes Hallucination(s) present auditory and visual INSIGHT: Poor insight present (Psych) JUDGEMENT: Limited judgement present (Psych) Skin: COMMON NORMALS: no rashes or lesions noted, no jaundice, no petechiae and no mottling GENERAL SKIN EXAM: no rashes or lesions noted A&P Assessment and plan (1) Hallucinations: -has had auditory and visual hallucinations for some time, along with intermittent confusion, garbled and slurred speech -no apparent neuro deficits on exam -CT head with noted mild atrophy and chronic ischemic disease -check vitamin B12, folate, vitamin B1, TSH, A1c -fall precautions -no apparent infectious etiology, afebrile, no leukocytosis; may consider LP if febrile Status: Acute (2) Coronary artery disease: -Echo (02/2020): EF=50-55%, no RWMA, G1DD -s/p LHC (03/2020): mild CAD, 1-vessel disease, medical management recommended -resume meds Status: Chronic Qualifiers: Coronary Disease-Associated Artery/Lesion type: [place] artery [place] vs. transplanted heart: shawnee heart Associated angina: with unspecified angina Qualified Code(s): I25.119 - Atherosclerotic heart disease of sh[place]nee coronary artery with unspecified angina pectoris (3) GERD with esophagitis: -resume famotidine Status: Chronic Qualifiers: Esophagitis bleeding: without hemorrhage Qualified Code(s): K21.00 - Gastro-esophageal reflux disease with esophagitis, without bleeding (4) Fibromyalgia: -pain control as needed Status: Chronic (5) Hypertension: -monitor vital signs -resume oral antihypertensives Status: Chronic Qualifiers: Hypertension type: essential hypertension Qualified Code(s): I10 - Essential (primary) hypertension (6) Adult onset hypothyroidism: -check TSH -resume levothyroxine Status: Chronic (7) COPD with chronic bronchitis and emphysema: -no acute exacerbation -inhaler treatments PRN Status: Chronic Additional A&P Information -Morbid obesity: BMI-35 kg/m2 -hx of bipolar disorder, insomnia -cardiac diet as tolerated -GI ppx with famotidine -Dispo: per Psych -Code status: FULL code -Admit to [facility] -Thank you for this consult, will continue to follow along with you Consult Attestations Medical Necessity Statement: Jason Canela's hospital stay will require greater than 2 midnights for management of altered mental status, hallucinations. Time Spent in Patient Care: Greater than 35 minutes (>than 50% of time spent in counselling and/or direct pt care on unit) . Coding Level of Care Code Acute Bar Machine Operator for Chg Fwd Exam Comprehensive Diagnoses Hallucinations R44.3 Coronary artery disease I25.119 Coronary Disease-Associated Artery/Lesion type: [place] artery [place] vs. transplanted heart: sh[place] heart Associated angina: with unspecified angina GERD with esophagitis K21.00 Esophagitis bleeding: without hemorrhage Fibromyalgia M79.7 Hypertension I10 Hypertension type: essential hypertension Adult onset hypothyroidism E03.8 COPD with chronic bronchitis and emphysema J44.9
[2020-06-19 15:23] LABS: Ammonia 24 umol/L (16-60)
--- NOTE | 2020-06-19 15:46 | PC.NURSE ---
report called to hortencia rivera
[2020-06-19 16:23] VITALS: BP 152/101; PULSE 74; RESP 16; TEMP 36.8; O2SAT 96
[2020-06-19] MEDS: metoprolol tartrate 25 mg Tablet 12.5 MG PO (16:38)
[2020-06-19 20:08] VITALS: BP 118/73; PULSE 77; RESP 18; TEMP 36.7; O2SAT 90
[2020-06-19] MEDS: atorvastatin 40 mg Tablet 20 MG PO (20:22)
[2020-06-19] MEDS: famotidine 20 mg Tablet 40 MG PO (20:22)
[2020-06-19] MEDS: hyDRALAzine 50 mg Tablet PO (20:23)
[2020-06-20 06:00] VITALS: BP 154/76; PULSE 76; RESP 16; TEMP 36.7; O2SAT 95
[2020-06-20] MEDS: hyDRALAzine 50 mg Tablet PO ×2 (08:54→21:07)
[2020-06-20] MEDS: lisinopril 20 mg Tablet PO (08:55)
[2020-06-20] MEDS: isosorbide mononitrate ER 30 mg Tablet PO (08:55)
[2020-06-20] MEDS: meloxicam 7.5 mg tablet 15 MG PO (08:55)
[2020-06-20] MEDS: levothyroxine 100 mcg Tablet PO (08:55)
[2020-06-20] MEDS: hydroCHLOROthiazide 25 mg Tablet PO (08:55)
[2020-06-20] MEDS: famotidine 20 mg Tablet 40 MG PO ×2 (08:55→21:04)
[2020-06-20] MEDS: metoprolol tartrate 25 mg Tablet 12.5 MG PO ×2 (08:55→17:14)
--- NOTE | 2020-06-20 11:05 | PM.NHP ---
Providers/Chief Complaint Admitting Physician: Jerry Colon MD Primary Care Provider: MICHAEL Duenas Chief Complaint: phy ref/hallucinations HPI NPU History of Present Illness Jason Canela is a 65 year old male who presented to the emergency department with the following report: Chief Complaint: Psychiatric Symptoms Stated Complaint: phy ref/hallucinations Time Seen by Provider: 06/19/20 11:02 History of Present Illness: HPI Narrative: 65-year-old male patient presents to the emergency department with his daughter. His daughter reports 2-week onset of worsening auditory and visual hallucinations. He is cared for by behavioral health at [facility] as an outpatient. Remains on lithium due to bipolar disorder. He woke this morning stating there are people in the home, they were under the close, he reports could not hear what they were saying, states mumbling. His daughter reports concern as he has become more confused, states his brother lives in the home behind him, he has lived in the same home for 27 years and appears disoriented to current living environment. She reports took him to his primary care yesterday, Brannon Valladares, work-up with chest x-ray and serology testing negative for acute findings. She was advised to bring him to the hospital today as she does not feel he is safe in his own home. She reports decreased sleeping at night, increased sleep during the day. States trazodone does not seem to be effective for insomnia. History of COPD, bipolar disorder, coronary artery disease. Left heart cath completed 03/19/2020 without obstructive lesions identified. + Use of hydrocodone for pain management. complaint: altered mental status Onset (ago): day(s) (14) Duration: getting worse Relieving factors: none Exacerbating factors: none Associated psychiatric symptoms: auditory hallucinations and visual hallucinations Associated symptoms: Reports auditory hallucinations and visual hallucinations; Deny homicidal ideation or suicidal ideation Treatments prior to arrival: none. He was admitted to the neuropsychiatric unit for definitive treatment of those issues. He endorses a history of psychiatric hospitalization likely 4 times before, 1 in [place] 3 here. He endorses follow-up at [facility]. His last visit was 05/09/2020. He first started seeing his current practitioner in March 2018. 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 Our first electronic records of his [facility] appointments begins in 2004. [facility] Outpatient Progress Note TIME IN: 899 TIME OUT: 929 CHIEF COMPLAINT: Follow-up. SUBJECTIVE: RECENT/INTERVAL HISTORY: Jason is a 63 yr old male who presents to [facility] today for medication management and follow up for his depression. He was last seen February 23. Jason reports his girlfriend last month. She was 55 years old and on her birthday due to complications of her diabetes. He states after that he felt suicidal and told his son that he needed to go to the hospital. Jason lives with his 25-year-old son. He went to [facility] emergency room and due to no psychiatric beds available was transferred to [facility]. He states he was in the hospital 4 days before he was sent home. Jason states they change to have his medicines but he was unsure what the change was. We called his pharmacy [facility] to confirm his medications. Jason's lithium was decreased to 300 mg twice per day, he was started on trazodone 100 mg at bedtime, his Effexor was stopped and he was started on Cymbalta 60 mg daily. Jason states he was feeling somewhat better when he was discharged. States he was having a little bit more energy and he was starting to eat again. He has been taken these new medications for about 2 weeks. Jason reports high anxiety and feels as though he has been having anxiety attacks at time. He states he doesn't like staying at home by himself. When his son goes to work he gets up and leaves the house. When asked what he goes to do he states he has even just sat in the parking lot of the gas station. Jason states he quit smoking 2 weeks ago after his girlfriend . 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 He is treated by Dr. Garcia at the pain management clinic. I discussed with Jason that it takes these medications a while to get in his system and to work at their fullest. We will not change medicines today and give these medicines more time to work and follow-up frequently. We will check his lithium level at his next visit. SLEEP: No complaints. MOOD: Anxious. APPETITE: reported as adequate; tolerating medications well LEVEL OF ENERGY: Adequate ABILITY TO DO ADL'S: Adequate LEVEL OF ANXIETY: High ABILITY TO ENJOY LIFE: Decreased FRIGHTENING, UNCOMFORTABLE OR RACING THOUGHTS: Denies THOUGHT OF , SUICIDE, OR VIOLENCE TOWARD OTHERS: Denies HEARING VOICES SEEING VISIONS: Denies OBJECTIVE: GENERAL:/ APPEARANCE: Dressed appropriately for season; good hygiene. VITAL SIGNS: Reviewed and in chart. ORIENTATION: The patient is alert and oriented X4. THOUGHT PROCESS: Goal-directed and logical. AFFECT/MOOD: Patient's affect is euthymic. SPEECH/LANGUAGE: Patient is able to use speech and language to communicate effectively. INSIGHT/JUDGMENT: Insight and judgment is fair. FUND OF KNOWLEDGE: Estimated average. ATTENTION/CONCENTRATION/MEMORY: The patient is able to pay attention and concentrate as we talk during the session today. GAIT/MUSCLE TONE/STRENGTH: Adequate, as the patient walks back to the office today. DIAGNOSTICS: LABORATORIES: Will repeat lithium level at next visit. ASSESSMENT: Major depression severe recurrent F 33.2 Alcoholism currently in remission F10.21 Borderline personality disorder F60.3 He presents reporting that he has been on the lithium for some time. He has taken different antipsychotics in the past. We get collateral information that his family has been concerned and reaching out to [facility] but has been somewhat disappointed in the response. They report that they understand the HIPAA guidelines but I found to be of assistance of their brother. He denies smoking cigarettes but does report that he did smoke cigarettes and cigars in the past. He reports that he does not drink alcohol with any regularity. He denies smoking marijuana or using any other illicit drugs. He is never gone to a drug rehab and never had a DUI. He denies any suicide attempts in the past but does report having suicidal thoughts but reports that that has been years. But concern his family likely is having his he does endorse believing that there are people that live in his house/trailer because he says he hears them talking to him and he is convinced that they are there he just cannot find them. We discussed getting a second lithium reading because the first 1 came back 1.3 but it was just taken randomly. We discussed getting a trough level and then deciding what to do with the lithium. Then we discussed the risks, benefits and alternatives of starting Invega and he understood and agreed to proceed as is documented in this note. Psychiatric history: As above. Substance abuse history: As above. Developmental history: He denies any problems with his or delivery, reports that he learned to walk and talk and met his developmental milestones on time, and denies any memory of speech therapy but does report having learning support/special education classes. Psychosocial: He reports that his parents were together when he was born and that he is the 11th of 11 children with 7 brothers and 3 sisters. He denies that his parents had any other children with any other partners. He reports that his childhood was happy and he denies any recollection of emotional, physical or sexual abuse. He reports that he graduated from high school in [employer]. He reports that he heterosexual with his longest relationship was about 15 years. He reports he was 1 time once. That he has 1 son and 1 daughter, that he has never been in the and he denies any significant sikhism belief system. He reports his longest employment was at the [employer] reporting that he worked there with his father at one point. He currently lives in a trailer alone. Legal history: There was no activity peril. Medical history: He endorses high cholesterol and possibly what sounds like COPD. He endorses thyroid and blood pressure issues. Per his 04/15/2020 [facility] outpatient progress note: Meds NPU Home Medications Medication Instructions Recorded Confirmed Last Taken Type hydrocodone 10 mg-acetaminophen 1 - 2 tab PO Q4H PRN tab 09/26/19 06/19/20 06/19/20 09:00 History 325 mg tablet albuterol sulfate 90 mcg/actuation 2 inh INHALATION Q4H PRN #18 gm 02/12/20 06/19/20 Unknown Rx aerosol inhaler fluticasone fur. 100 mcg-umeclid 1 inh INHALATION DAILY #28 each 02/12/20 06/19/20 06/19/20 Rx 62.5 mcg-vilant 25 mcg inhalat.powder metoprolol tartrate 25 mg tablet 12.5 mg PO BID #90 tab 03/27/20 06/19/20 Unknown Rx atorvastatin 20 mg tablet 20 mg PO DAILY #30 tab 04/28/20 06/19/20 Unknown Rx famotidine 40 mg tablet 40 mg PO Q12H #60 tab 04/28/20 06/19/20 Unknown Rx hydralazine 50 mg tablet 50 mg PO Q12H #60 tab 04/28/20 06/19/20 Unknown Rx meloxicam 15 mg tablet 15 mg PO DAILY #30 tab 04/28/20 06/19/20 Unknown Rx isosorbide mononitrate 30 mg 30 mg PO QAM #30 tab 04/30/20 06/19/20 Unknown Rx tablet,extended release 24 hr levothyroxine 100 mcg tablet 100 mcg PO DAILY #30 tab 04/30/20 06/19/20 Unknown Rx lisinopril 20 1 tab PO DAILY #30 tab 04/30/20 06/19/20 Unknown Rx mg-hydrochlorothiazide 25 mg tablet duloxetine 60 mg capsule,delayed 120 mg PO DAILY #60 cap 05/08/20 06/19/20 Unknown Rx release acetaminophen [Tylenol Extra 1,000 - 1,500 mg PO PRN 06/19/20 06/19/20 Unknown History Strength] diphenhydramine-acetaminophen 2 - 3 tab PO PRN 06/19/20 06/19/20 06/18/20 History [Tylenol PM Extra Strength] lithium carbonate 300 mg PO QAM 06/19/20 06/19/20 Unknown History lithium carbonate 600 mg PO BEDTIME 06/19/20 06/19/20 Unknown History trazodone 100 mg PO BEDTIME 06/19/20 06/19/20 Unknown History Allergies Allergy/AdvReac Type Severity Reaction Status Date / Time No Known Allergies Allergy Verified 06/19/20 11:35 PFSH NPU PFSH: Medical History Adult onset hypothyroidism Alcohol dependence, in remission Borderline personality disorder COPD with chronic bronchitis and emphysema Coronary artery disease Fibromyalgia GERD with esophagitis History of tobacco abuse Hypertension Major depressive disorder, recurrent severe without psychotic features Mixed hyperlipidemia Nicotine dependence, cigarettes, uncomplicated Surgical History History of ankle surgery Left ORIF History of removal of cyst Back Family History Other Cancer Diabetes Hypertension Psychiatric illness Social History Smoking and tobacco status: former smoker Quit status (tobacco): has quit using tobacco Year quit tobacco: 1-2 yrs ago Second hand smoke exposure: No Smoking risk assessment/counseling performed?: Yes Tobacco counseling given: counseling >3 minutes Alcohol intake: former Desire information about alcohol rehabilitation?: No Counseling given: No Desire information about substance/drug rehabilitation?: No Counseling given: No Adopted: No Caregiver/support person: No Lives independently: Yes Housing: Manufactured/Mobile home Marital status: service: No Current occupational status: disabled History of recent travel: No Current gender identity: Male Mental Status Exam MSE Comments: This is an obese white male in the hospital scrubs with limited grooming and adequate eye contact. With both/a long lópez reminiscent of the [employer]. No abnormal movements. Cooperative with exam in no acute distress. Speech was slightly decreased rate and volume. With frequent requests to have things repeated. Mood described as better today, affect euthymic. Thought process mostly organized. Thought content: Patient denied any suicidal or homicidal ideations, there were no delusions reported or noted outside of the belief of people living in his home that can be found, he denied any auditory or visual hallucinations, but ultimately did endorse voices at home who source is yet to be determined. Attention and concentration were intact and memory was mostly reliable but none were formally tested. He is alert and oriented person and place. Insight and judgment are limited, impulse control appears fair, intellectual ability is likely impaired. Vitals/I&O/Wt Last Vital Signs Temp 98.6 F 06/20/20 14:00 Pulse 71 06/20/20 14:00 Resp 20 H 06/20/20 14:00 BP 103/63 06/20/20 14:00 Pulse Ox 91 06/20/20 14:00 Weight last 48 hrs Weight 118.388 kg Data NPU : 06/19/20 11:03 06/19/20 11:03 A&P Assessment and plan (1) Hallucinations: Status: Acute (2) Coronary artery disease: Status: Chronic Qualifiers: Coronary Disease-Associated Artery/Lesion type: [place] artery [place] vs. transplanted heart: osage heart Associated angina: with unspecified angina Qualified Code(s): I25.119 - Atherosclerotic heart disease of [place] coronary artery with unspecified angina pectoris (3) History of tobacco abuse: Status: Acute (4) GERD with esophagitis: Status: Chronic Qualifiers: Esophagitis bleeding: without hemorrhage Qualified Code(s): K21.00 - Gastro-esophageal reflux disease with esophagitis, without bleeding (5) Mixed hyperlipidemia: Status: Chronic (6) Fibromyalgia: Status: Chronic (7) Hypertension: Status: Chronic Qualifiers: Hypertension type: essential hypertension Qualified Code(s): I10 - Essential (primary) hypertension (8) Adult onset hypothyroidism: Status: Chronic (9) COPD with chronic bronchitis and emphysema: Status: Chronic (10) Nicotine dependence, cigarettes, uncomplicated: Status: Acute (11) Borderline personality disorder: Status: Acute (12) Major depressive disorder, recurrent severe without psychotic features: Status: Acute (13) Psychosis: Status: Acute (14) Intellectual disability: Status: Acute Additional A&P Information This is a 65-year-old white male with a long history of mental health issues but no consistent history of psychotic symptoms presents with family concerns for psychosis and him endorsing strange phenomena in his home with an openness to a trial of an antipsychotic. 1. Continue current medication. Repeat lithium was 0.7. We will start Invega 6 mg p.o. daily. 2. Continue every 15 minute checks for safety. 3. Encourage individual, group and milieu therapy. Involuntary Hold Information 96 Hour Hold: 96 Hour Involuntary Admission: No Attestations NPU Medical Necessity Statement*: Inpatient hospitalization is medically necessary and the clinically appropriate intervention at this time. We will monitor medications and make changes as indicated. He will be in the hospital for over 2 midnights. Likely length of stay 3 to 5 days. 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 transplanted heart: [place] heart Associated angina: with unspecified angina History of tobacco abuse Z87.891 GERD with esophagitis K21.00 Esophagitis bleeding: without hemorrhage Mixed hyperlipidemia E78.2 Fibromyalgia M79.7 Hypertension I10 Hypertension type: essential hypertension Adult onset hypothyroidism E03.8 COPD with chronic bronchitis and emphysema J44.9 Nicotine dependence, cigarettes, uncomplicated F17.210 Borderline personality disorder F60.3 Major depressive disorder, recurrent severe without psychotic features F33.2 Psychosis F29 Intellectual disability F79
[2020-06-20 11:13] LABS: Folate Level 3.9 ng/mL (4.5-32.2)
[2020-06-20 11:14] LABS: Vitamin B12 223 pg/mL (232-1245)
[2020-06-20 12:20] LABS: Free T4 Free Thyroxine 1.33 ng/dL (0.82-1.77)
--- NOTE | 2020-06-20 12:20 | P.PN_ITS ---
Subjective Subjective: Interval history: Hemodynamically stable, afebrile, remains on room air, noted low folate level and vitamin B12 level. Will start on supplementation. Resting quietly in bed, no complaints, has been sleeping a fair bit, when awakened, is alert and appropriate, speech more sensible. Medications: Reviewed: Yes Medication Review Details: Active Medications Generic Name Dose Route Start Last Admin Trade Name Freq PRN Reason Stop Dose Admin Acetaminophen 650 mg 06/19/20 14:55 Acetaminophen 32 5 Mg Tablet PO Q4H PRN MILD PAIN Albuterol Sulfate 2 puff 06/19/20 16:06 Albuterol 8 Gm M di INHALATION Q4H PRN shortness of afshin th or wheezing Atorvastatin Calci um 20 mg 06/19/20 21:00 06/19/20 20:22 Atorvastatin 40 Mg Tablet PO 20 mg BEDTIME DESMOND Administration Benztropine Mesyla te 1 mg 06/19/20 14:55 Benztropine 1 Mg Tablet PO BID PRN Mild Extrapyramid al symptoms Camphor/Menthol/Ph enol 1 applic 06/19/20 14:55 Blistex Lip Oint 7 Gm Tube TOPICAL Q1H PRN DRYNESS Diphenhydramine HC l 50 mg 06/19/20 14:55 Diphenhydramine 50 Mg/Ml Sdv 1ml IM ONCE PRN Severe Extrapyram idal Symptoms Diphenhydramine HC l 50 mg 06/19/20 14:55 Diphenhydramine 50 Mg/Ml Sdv 1ml IM Q4H PRN Severe Aggression Famotidine 40 mg 06/19/20 21:00 06/20/20 08:55 Famotidine 20 Mg Tablet PO 40 mg Q12H DESMOND Administration Haloperidol 5 mg 06/19/20 14:55 Haloperidol 5 Mg Tablet PO Q4H PRN AGITATION Haloperidol Lactat e 5 mg 06/19/20 14:55 Haloperidol Inj 5 Mg/Ml Inj 1 Ml IM Q4H PRN Severe Aggression Hydralazine HCl 50 mg 06/19/20 21:00 06/20/20 08:54 Hydralazine 50 M g Tablet PO 50 mg Q12H DESMOND Administration Hydrochlorothiazid e 25 mg 06/20/20 09:00 06/20/20 08:55 Hydrochlorothiaz yojana 25 Mg Tablet PO 25 mg DAILY DESMOND Administration Hydroxyzine Pamoat e 50 mg 06/19/20 14:55 Hydroxyzine 25 M g Capsule PO Q6H PRN ANXIETY Isosorbide Mononit rate 30 mg 06/20/20 09:00 06/20/20 08:55 Isosorbide Rupert itrate Er 30 Mg Ta blet PO 30 mg QAM DESMOND Administration Levothyroxine Sodi um 100 mcg 06/20/20 09:00 06/20/20 08:55 Levothyroxine 10 0 Mcg Tablet PO 100 mcg DAILY DESMOND Administration Lisinopril 20 mg 06/20/20 09:00 06/20/20 08:55 Lisinopril 20 Mg Tablet PO 20 mg DAILY DESMOND Administration Loperamide HCl 2 mg 06/19/20 14:55 Loperamide 2 Mg Capsule PO Q6H PRN DIARRHEA Lorazepam 2 mg 06/19/20 14:55 Lorazepam 2 Mg/M l Inj 1 Ml IM Q4H PRN Severe Aggression Meloxicam 15 mg 06/20/20 09:00 06/20/20 08:55 Meloxicam 7.5 Mg Tablet PO 15 mg DAILY DESMOND Administration Metoprolol Tartrat e 12.5 mg 06/19/20 18:00 06/20/20 08:55 Metoprolol Tartr ate 25 Mg Tablet PO 12.5 mg BID DESMOND Administration Nicotine 1 patch 06/19/20 14:55 Nicotine 21 Mg P atch TRANSDERMA DAILY PRN NICOTINE WITHDRAW AL Nicotine Polacrile x 2 mg 06/19/20 14:55 Nicotine 2 Mg Gu m BUCCAL Q2H PRN NICOTINE WITHDRAW AL Olanzapine 5 mg 06/19/20 14:55 Olanzapine 5 Mg Odt PO Q4H PRN Agitation/Psychos is Ondansetron HCl 4 mg 06/19/20 14:55 Ondansetron 4 Mg Tablet PO Q6H PRN NAUSEA AND VOMITI NG Trazodone HCl 50 mg 06/19/20 14:55 Trazodone 50 Mg Tablet PO BEDTIME PRN SLEEP No Known Allergies Allergy (Verified 06/19/20 11:35) Vitals/I&O/Wt Last Vital Signs Temp 98.1 F 06/20/20 06:00 Pulse 76 06/20/20 06:00 Resp 16 06/20/20 06:00 BP 154/76 06/20/20 06:00 Pulse Ox 95 06/20/20 06:00 Weight last 48 hrs Weight 118.388 kg Physical Exam Const: COMMON NORMALS: no acute distress and alert GENERAL APPEARANCE: cooperative and comfortable NUTRITIONAL APPEARANCE: overweight ORIEN TATION/CONSCIOUSNESS: Yes awake OTHER: -resting quietly in bed HENMT: COMMON NORMALS: normocephalic, atraumatic, hearing grossly normal bilaterally and moist oral mucous membranes HEAD & SCALP: normocephalic and atraumatic TEETH & GINGIVA: Yes poor dentition Eye: COMMON NORMALS: Equal, round and reactive pupils present, EOMs intact bilaterally and conjunctivae normal CONJUNCTIVA: Yes conjunctivae normal PUPIL: Yes Equal, round and reactive pupils present Neck/C-Spine: COMMON NORMALS: full ROM GENERAL: Yes normal visual inspection and Yes trachea midline Resp: COMMON NORMALS: normal respiratory effort, No retractions, No use of accessory muscles and clear to auscultation bilaterally EFFORT & INSPECTION: Yes able to speak in complete sentences, Yes symmetric chest movement and No tachypneic AUSCULTATION: clear to auscultation bilaterally OTHER: -on RA Cardio: COMMON NORMALS: regular rate, regular rhythm, S1 normal heart sound present, S2 normal heart sound present and No murmurs present (Cardio) RATE: regular rate RHYTHM: regular rhythm HEART SOUNDS: S1 normal heart sound present and S2 normal heart sound present GI: COMMON NORMALS: Normal to inspection, nondistended, normoactive bowel sounds present, Soft to palpation and non-tender INSPECTION: Yes central obesity PALPATION: Yes Soft to palpation Extremity: COMMON NORMALS: normal to inspection, full ROM, no clubbing, cyanosis or edema and no pedal edema Neuro: COMMON NORMALS: moves all extremities, no focal motor deficits and no sensory deficits noted SENSORIUM/ORIENTATION: Yes alert and Yes Orientation impaired SPEECH: speech normal GAIT: Yes Other gait observations present (initially shuffling gait) Psych: COMMON NORMALS: cooperative, normal affect and speech normal A TTITUDE: Yes calm ACTIVITY/MOTOR BEHAVIOR: Yes appropriate eye contact SPEECH: Yes normal speech THOUGHT PROCESS: confused INSIGHT: Poor insight present (Psych) JUDGEMENT: Limited judgement present (Psych) Skin: COMMON NORMALS: no rashes or lesions noted, no jaundice, no petechiae and no mottling GENERAL SKIN EXAM: no rashes or lesions noted Data : 06/19/20 11:03 06/19/20 11:03 A&P Assessment and plan (1) Hallucinations: -has had auditory and visual hallucinations for some time, along with intermittent confusion, garbled and slurred speech -no apparent neuro deficits on exam -CT head with noted mild atrophy and chronic ischemic disease -noted low vitamin B12, folate; pending vitamin B1, A1c. TSH slightly elevated, free T4 wnl. Start on vitamin B12 and folate replacement -fall precautions -no apparent infectious etiology, afebrile, no leukocytosis; may consider LP if febrile Status: Acute (2) Coronary artery disease: -Echo (02/2020): EF=50-55%, no RWMA, G1DD -s/p LHC (03/2020): mild CAD, 1-vessel disease, medical management recommended -continue meds Status: Chronic Qualifiers: Associated angina: with unspecified angina Coronary Disease-Associated Artery/Lesion type: [place] artery [place] vs. transplanted heart: [place] heart Qualified Code(s): I25.119 - Atherosclerotic heart disease of [place] coronary artery with unspecified angina pectoris (3) GERD with esophagitis: -continue famotidine Status: Chronic Qualifiers: Esophagitis bleeding: without hemorrhage Qualified Code(s): K21.00 - Gastro-esophageal reflux disease with esophagitis, without bleeding (4) Fibromyalgia: -pain control as needed Status: Chronic (5) Hypertension: -VSS; continue to monitor vital signs -continue oral antihypertensives Status: Chronic Qualifiers: Hypertension type: essential hypertension Qualified Code(s): I10 - Essential (primary) hypertension (6) Adult onset hypothyroidism: -slightly elevated TSH, normal fT4 -continue levothyroxine Status: Chronic (7) COPD with chronic bronchitis and emphysema: -no acute exacerbation -inhaler treatments PRN Status: Chronic Additional A&P Information -Morbid obesity: BMI-35 kg/m2 -hx of bipolar disorder, insomnia -cardiac diet as tolerated -GI ppx with famotidine -Dispo: per Psych -Code status: FULL code -Will sign off. Please call with questions Attestations Medical Necessity Statement*: Patient requires hospitalization for continued inpatient psychiatric care. Time Spent in Patient Care: 16 - 35 minutes (>than 50% of time spent in counselling and/or direct pt care on unit) . Coding Level of Care Code Acute Store Facility Technician for g Fwd Exam Comprehensive Diagnoses Hallucinations R44.3 Coronary artery disease I25.119 Associated angina: with unspecified angina Coronary Disease-Associated Artery/Lesion type: [place] artery [place] vs. transplanted heart: [place] heart GERD with esophagitis K21.00 Esophagitis bleeding: without hemorrhage Fibromyalgia M79.7 Hypertension I10 Hypertension type: essential hypertension Adult onset hypothyroidism E03.8 COPD with chronic bronchitis and emphysema J44.9
[2020-06-20 12:38] LABS: Estmated Average Glucose 88; Hemoglobin A1C 4.7 % (4.0-6.0)
[2020-06-20] MEDS: cyanocobalamin 1,000 mcg/mL SDV 1000 MCG SUBCUT (13:03)
[2020-06-20 13:45] VITALS: PULSE 76; RESP 15; O2SAT 97
[2020-06-20] MEDS: albuterol 8 gm MDI 2 PUFF INHALATION (13:45)
[2020-06-20 13:55] VITALS: PULSE 74; RESP 15; O2SAT 96
[2020-06-20 14:00] VITALS: BP 103/63; PULSE 71; RESP 20; TEMP 37; O2SAT 91
[2020-06-20] MEDS: paliperidone ER 6 mg Tablet PO (14:30)
[2020-06-20] MEDS: folic acid 1 mg Tablet PO (17:14)
[2020-06-20 19:30] VITALS: BP 135/85; PULSE 73; RESP 16; TEMP 36.6; O2SAT 94
--- NOTE | 2020-06-20 19:51 | PC.NURSE ---
PM assessment Pt denies SI/HI. However, said that he was feeling HI toward his daughter because she brought him to the stress unit and took his money. He is calm and talkative. He expressed financial concerns and his want to have a beer. Pt denies AH/VH at this time. Heart and lung sounds are normal. Will continue to monitor patient.
[2020-06-20 20:24] LABS: Lithium 0.7 mmol/L (0.6-1.2)
[2020-06-20] MEDS: atorvastatin 40 mg Tablet 20 MG PO (21:05)
[2020-06-20] MEDS: lithium carbonate 300 mg Capsule 600 MG PO (21:05)
[2020-06-21 05:58] VITALS: BP 93/62; PULSE 116; RESP 18; TEMP 36.4; O2SAT 96
[2020-06-21] MEDS: paliperidone ER 6 mg Tablet PO (09:03)
[2020-06-21] MEDS: metoprolol tartrate 25 mg Tablet 12.5 MG PO (09:03)
[2020-06-21] MEDS: cyanocobalamin 1,000 mcg Tablet 1000 MCG PO (09:04)
[2020-06-21] MEDS: hyDRALAzine 50 mg Tablet PO (09:04)
[2020-06-21] MEDS: isosorbide mononitrate ER 30 mg Tablet PO (09:04)
[2020-06-21] MEDS: levothyroxine 100 mcg Tablet PO (09:04)
[2020-06-21] MEDS: hydroCHLOROthiazide 25 mg Tablet PO (09:04)
[2020-06-21] MEDS: famotidine 20 mg Tablet 40 MG PO ×2 (09:04→20:51)
[2020-06-21] MEDS: folic acid 1 mg Tablet PO ×2 (09:04→17:50)
[2020-06-21] MEDS: lisinopril 20 mg Tablet PO (09:04)
[2020-06-21] MEDS: lithium carbonate 300 mg Capsule PO (09:04)
[2020-06-21] MEDS: meloxicam 7.5 mg tablet 15 MG PO (09:05)
[2020-06-21 09:10] VITALS: BP 113/77; PULSE 94; RESP 20; O2SAT 94
--- NOTE | 2020-06-21 12:54 | PM.NPN ---
Subjective NPU Subjective: Interval history: Jason presents today seemingly more aware of the purpose of his admission. He brought up the fact that there were these people that he felt where they are talking to him at his trailer. He denied any issues with the Invega and was more interactive on the unit. He denied any issues with eating or sleeping and seemed to be more open to taking hygienic measures. Mental Status Exam MSE Comments: This is an obese white male in the hospital scrubs with limited grooming and adequate eye contact. With a long lópez reminiscent of the [employer]. No abnormal movements except for some ataxia with gait. Cooperative with exam in no acute distress. Speech was slightly decreased rate and volume. With no requests to have things repeated. Mood described as better today, affect euthymic. Thought process mostly organized. Thought content: Patient denied any suicidal or homicidal ideations, there were no delusions reported or noted outside of the belief of people living in his home that can be found, he denied any auditory or visual hallucinations, but ultimately did endorse voices at home who source is yet to be determined. Attention and concentration were intact and memory was mostly reliable but none were formally tested. He is alert and oriented person and place. Insight and judgment are limited, impulse control appears fair, intellectual ability is likely impaired. Vitals/I&O/Wt Last Vital Signs Temp 98.1 F 06/21/20 20:06 Pulse 89 06/21/20 20:06 Resp 17 06/21/20 20:06 BP 120/56 06/21/20 20:06 Pulse Ox 90 06/21/20 20:06 Data NPU : 06/19/20 11:03 06/19/20 11:03 A&P Additional A&P Information (1) Hallucinations: (2) Coronary artery disease: (3) History of tobacco abuse: (4) GERD with esophagitis: (5) Mixed hyperlipidemia: (6) Fibromyalgia: (7) Hypertension: (8) Adult onset hypothyroidism: (9) COPD with chronic bronchitis and emphysema: (10) Nicotine dependence, cigarettes, uncomplicated: (11) Borderline personality disorder: (12) Major depressive disorder, recurrent severe without psychotic features: (13) Psychosis: (14) Intellectual disability: This is a 65-year-old white male with a long history of mental health issues but no consistent history of psychotic symptoms presents with family concerns for psychosis and him endorsing strange phenomena in his home with an openness to a trial of an antipsychotic. 1. Continue current medication. 2. Continue every 15 minute checks for safety. 3. Encourage individual, group and milieu therapy. 4. We will get PT OT consult. Involuntary Hold Information 96 Hour Hold: 96 Hour Involuntary Admission: No Attestations NPU Medical Necessity Statement*: Inpatient hospitalization is medically necessary and the clinically appropriate intervention at this time. We will monitor medications and make changes as indicated. Likely length of stay 2-4 days. Coding Level of Care Code Acute Aviculturist for Ofelia Rhodes
[2020-06-21 13:41] VITALS: PULSE 68; RESP 16; O2SAT 95
[2020-06-21 14:00] VITALS: BP 101/71; PULSE 116; RESP 20; TEMP 36.3; O2SAT 98
--- NOTE | 2020-06-21 16:41 | PC.RESP ---
Pulmonary Rehab information sent to patient.
--- NOTE | 2020-06-21 19:38 | PC.NURSE ---
PM Assessment Pt has declined in mobility since last night. His gait is weak. He is visibly shaking, patient is having a hard time communicating this evening, there is a definite change in his condition since I saw him last night. He reports not being able to walk, and about falling in the shower. Currently, patient is resting in bed. Pt denies AH/Vh, Denies pain, and reports feeling strange. He keeps requesting vodka he says it is the only thing that makes him feel alright again . Will continue to monitor this patient for any change in behavior.
[2020-06-21 20:06] VITALS: BP 120/56; PULSE 89; RESP 17; TEMP 36.7; O2SAT 90
--- NOTE | 2020-06-21 20:23 | PC.NURSE ---
Daughter Melania called Pt daughter called to check on her father. Says that pt does have arthritis, deterioration of the spine, fibromyalgia, increased confusion, new onset of AH. She stated that her father is suffering from BPD and the mood changes are more frequent and severe. The patient has been seeing people in his home and hearing children in his bedroom, the daughter specified that the father lives alone in his home and there was no one else there at the time. This is why they brought him to the ED for help. I asked the daughter about the patients Alcohol use and she said he hasn't been drinking since they were children. She is 30 and brother is 27. They have not witnessed him drinking. She says that her father plays alot. He like [place] and [employer] but does not consume alcohol. She is very concerned about him. She said that the family would like to visit him but they are concerned because he gets angry and wants them to take him home with them.
[2020-06-21] MEDS: lithium carbonate 300 mg Capsule 600 MG PO (20:51)
[2020-06-21] MEDS: atorvastatin 40 mg Tablet 20 MG PO (20:51)
--- NOTE | 2020-06-22 03:32 | PC.NURSE ---
Gait Pt gate is concerning. There has been a definite decline in his ability to walk and stand up right. Pt reports loss of strength. He is not able to lift his legs without assistance into the bed. He is a fall risk at this point. When talking to the patient there is a new slight studder in his conversation. It is more delayed and there is a moment when he appears blank. He then will speak and recover. There is cause for concern.
--- NOTE | 2020-06-22 05:11 | PC.NURSE ---
Note to nurse Pt gait reported to physician this morning. Physician feels that the unsteady gait may be EPS symptom related to Invega. Physician requests a lithium level this morning prior to giving morning dose of [place], He would like a call once the level is received. He also okayed the use of a walker while the patient is on the unit.
[2020-06-22 06:00] VITALS: BP 115/79; PULSE 84; RESP 15; TEMP 36.8; O2SAT 94
[2020-06-22] MEDS: benztropine 1 mg Tablet PO ×3 (06:09→17:16)
--- NOTE | 2020-06-22 06:13 | PC.NURSE ---
Kam Physician ordered Cogentin 1mg PO upon waking and Cogentin 1mg PO Bid scheduled for EPS r/t Invega.
[2020-06-22 08:01] LABS: Lithium 1.3 mmol/L (0.6-1.2)
[2020-06-22] MEDS: cyanocobalamin 1,000 mcg Tablet 1000 MCG PO (08:28)
[2020-06-22] MEDS: famotidine 20 mg Tablet 40 MG PO ×2 (08:28→20:48)
[2020-06-22] MEDS: paliperidone ER 6 mg Tablet PO (08:29)
[2020-06-22] MEDS: meloxicam 7.5 mg tablet 15 MG PO (08:29)
[2020-06-22] MEDS: hydroCHLOROthiazide 25 mg Tablet PO (08:29)
[2020-06-22] MEDS: folic acid 1 mg Tablet PO ×2 (08:29→17:16)
[2020-06-22] MEDS: levothyroxine 100 mcg Tablet PO (08:29)
[2020-06-22] MEDS: metoprolol tartrate 25 mg Tablet 12.5 MG PO ×2 (08:40→17:16)
[2020-06-22] MEDS: isosorbide mononitrate ER 30 mg Tablet PO (08:40)
[2020-06-22 13:45] VITALS: BP 133/92; PULSE 80; RESP 18; TEMP 36.2; O2SAT 90
--- NOTE | 2020-06-22 14:07 | PM.NPN ---
Subjective NPU Subjective: Interval history: Jason presents today having some unsteadiness of gait. He had a consult and has a walker now. His lithium level came back at 1.3 and a trough level raising concerns that some of his issues may be related to lithium toxicity. We discussed decreasing the dose as the standard to 300 mg p.o. twice daily. Additionally concerns about whether he is having EPS and we discussed the risk benefits and alternatives of starting Cogentin 1 mg p.o. twice daily. He understood and agreed to proceed with these changes. Mental Status Exam MSE Comments: This is an obese white male in the hospital scrubs with limited grooming and adequate eye contact. With a long lópez reminiscent of the [employer]. No abnormal movements except for some ataxia with gait. Cooperative with exam in no acute distress. Speech was slightly decreased rate and volume, with significant dysarthria. Mood described as okay, affect euthymic. Thought process mostly organized. Thought content: Patient denied any suicidal or homicidal ideations, there were no delusions reported or noted outside of the belief of people living in his home that can be found, he denied any auditory or visual hallucinations, but ultimately did endorse voices at home who source is yet to be determined. Attention and concentration were intact and memory was mostly reliable but none were formally tested. He is alert and oriented person and place. Insight and judgment are limited, impulse control appears fair, intellectual ability is likely impaired. Vitals/I&O/Wt Last Vital Signs Temp 98.2 F 06/22/20 19:28 Pulse 77 06/22/20 19:28 Resp 13 06/22/20 19:28 BP 95/69 06/22/20 19:28 Pulse Ox 89 L 06/22/20 19:28 Data NPU : 06/19/20 11:03 06/19/20 11:03 A&P Additional A&P Information (1) Hallucinations: (2) Coronary artery disease: (3) History of tobacco abuse: (4) GERD with esophagitis: (5) Mixed hyperlipidemia: (6) Fibromyalgia: (7) Hypertension: (8) Adult onset hypothyroidism: (9) COPD with chronic bronchitis and emphysema: (10) Nicotine dependence, cigarettes, uncomplicated: (11) Borderline personality disorder: (12) Major depressive disorder, recurrent severe without psychotic features: (13) Psychosis: (14) Intellectual disability: This is a 65-year-old white male with a long history of mental health issues but no consistent history of psychotic symptoms presents with family concerns for psychosis and him endorsing strange phenomena in his home with an openness to a trial of an antipsychotic. 1. Continue current medication. Decrease lithium to 300 mg p.o. twice daily and start Cogentin 1 mg p.o. twice daily. 2. Continue every 15 minute checks for safety. 3. Encourage individual, group and milieu therapy. 4. Appreciate PT OT consult. Involuntary Hold Information 96 Hour Hold: 96 Hour Involuntary Admission: No Attestations NPU Medical Necessity Statement*: Inpatient hospitalization is medically necessary and the clinically appropriate intervention at this time. We will monitor medications and make changes as indicated. Likely length of stay 2-4 days. Coding Level of Care Code Acute Tunnel Elastic Operator Chainstitch for Ofelia Rhodes
[2020-06-22] MEDS: lithium carbonate 300 mg Capsule PO (17:16)
[2020-06-22 19:28] VITALS: BP 95/69; PULSE 77; RESP 13; TEMP 36.8; O2SAT 89
[2020-06-22] MEDS: atorvastatin 40 mg Tablet 20 MG PO (20:49)
[2020-06-22] MEDS: hyDROXYzine 25 mg Capsule 50 MG PO (22:26)
--- NOTE | 2020-06-22 23:12 | PC.NURSE ---
BEHAVIOR PT WAS WALKING WITH HIS WALKER IN THE HALLWAY. HE WAS ATTEMPTING TO OPEN DOORS. PT WAS VERBALLY REDIRECTED SEVERAL TIMES BUT REFUSED TO GO BACK TO HIS ROOM. PT BECAME TIRED AND TRIED TO SIT DOWN IN THE HALLWAY. A CHAIR WAS REMOVED FROM THE BREAKDOWN AND PT SAT DOWN IN THE CHAIR. PT REFUSED TO TRY TO STAND. CHARGE NURSE ELISABETH MORALES AND JENIFER PALM DRAGGED THE CHAIR TO HIS ROOM. WE HELPED PATIENT GET BACK INTO BED. WILL CONTINUE TO MONITOR AND REDIRECT NEEDED.
[2020-06-23 06:00] VITALS: BP 106/82; PULSE 84; RESP 14; TEMP 37.3; O2SAT 91
[2020-06-23] MEDS: meloxicam 7.5 mg tablet 15 MG PO (08:48)
[2020-06-23] MEDS: famotidine 20 mg Tablet 40 MG PO (08:48)
[2020-06-23] MEDS: lisinopril 20 mg Tablet PO (08:48)
[2020-06-23] MEDS: metoprolol tartrate 25 mg Tablet 12.5 MG PO ×2 (08:48→17:32)
--- NOTE | 2020-06-23 08:48 | PC.NURSE ---
PT BEHAVIOR; CLIENT FOUND SITTING ON BATHROOM FLOOR IN HIS ROOM BY MACHINE MADE SHOE UNIT WORKER WHILE SHE WAS DOING HER ROUNDING AT 0800 AM. WITH THE ASSISTANCE OF TWO OTHER STAFF MEMBER NURSES, THE CLIENT EVALUATOR, AND THE MACHINE MADE SHOE UNIT WORKER ASSIGNED TO THE UNIT CLIENT WAS ASSISTED UP OFF THE FLOOR AND BACK TO HIS BED. CLIENT APPEARED TO BE CONFUSED ABOUT HIS SURROUNDINGS. DURING BESIDE NEURO ASSESSMENT CLIENT WAS ABLE TO SCREEN ROLLER NURSES HANDS APPROPRIATELY AND SMILE WHEN ASKED TO DO SO. CLIENT APPEARS TO BE EXPERIENCING VISUAL HALLUCINATIONS INTERACTING WITH OBJECTS THAT ARE NOT PRESENT IN HIS ROOM. CLIENTS BED LINENS WERE CHANGED AND CLIENT WAS ASSISTED BY STAFF AND GIVEN A BED BATH AND CHANGE OF CLOTHING. STAFF WILL CONTINUE TO MONITOR.
[2020-06-23] MEDS: cyanocobalamin 1,000 mcg Tablet 1000 MCG PO (08:49)
[2020-06-23] MEDS: folic acid 1 mg Tablet PO ×2 (08:49→17:32)
[2020-06-23] MEDS: paliperidone ER 6 mg Tablet PO (08:49)
[2020-06-23] MEDS: hyDRALAzine 50 mg Tablet PO (08:49)
[2020-06-23] MEDS: levothyroxine 100 mcg Tablet PO (08:49)
[2020-06-23] MEDS: benztropine 1 mg Tablet PO ×2 (08:49→17:32)
[2020-06-23] MEDS: lithium carbonate 300 mg Capsule PO ×2 (08:49→17:32)
[2020-06-23] MEDS: hydroCHLOROthiazide 25 mg Tablet PO (08:49)
[2020-06-23] MEDS: isosorbide mononitrate ER 30 mg Tablet PO (08:49)
--- NOTE | 2020-06-23 08:52 | NPU.GN ---
[facility] Topic: General Mood of Group Mark Gomez he had lowerd hiself to his bath room floor he did not fall was very confused and acking like he was playing with something in his hands but nothing was there staff help him back up and to his bed hes very cunfused ....
[2020-06-23] MEDS: albuterol 8 gm MDI 2 PUFF INHALATION (09:58)
[2020-06-23 09:59] VITALS: PULSE 68; RESP 18; O2SAT 96
[2020-06-23 10:01] VITALS: PULSE 70
[2020-06-23 14:00] VITALS: BP 113/78; PULSE 76; RESP 17; TEMP 36.6
--- NOTE | 2020-06-23 14:35 | USR_ITS ---
PROCEDURE INFORMATION: Exam: US Duplex Bilateral Extracranial Arteries Exam date and time: 06/23/2020 4:33 PM Age: 65 years old Clinical indication: Altered mental status/memory loss; Additional info: AMS TECHNIQUE: Imaging protocol: Real-time Duplex ultrasound scan of the bilateral carotid and vertebral arteries combining keller scale, color Doppler and spectral waveform analysis. Bilateral exam. COMPARISON: No relevant prior studies available. FINDINGS: Right common carotid artery: Velocity: 81/14 Unremarkable. No occlusion or stenosis. Waveforms are normal. Right internal carotid artery: Velocity: 91/29 There is mild calcific plaque at the right carotid bulb. The right internal carotid artery is otherwise normal. Right ICA/CCA ratio: 1.1 Within normal limits. Right external carotid artery: No stenosis in the origin. Right vertebral artery: Unremarkable. Antegrade flow. Left common carotid artery: Velocity: 101/15 Unremarkable. No occlusion or stenosis. Waveforms are normal. Left internal carotid artery: Velocity: 79/25 There is mild calcific plaque at the left carotid bulb. The left internal carotid artery is otherwise normal. Left ICA/CCA ratio: 0.78 Within normal limits. Left external carotid artery: No stenosis in the origin. Left vertebral artery: Unremarkable. Antegrade flow. Other findings: Velocity measurements are reported as peak systolic/end-diastolic in cm/s. US/CV carotid duplex BI* [id number] IMPRESSION: Mild stenosis at the carotid bulb bilaterally. REFERENCES: SRU CRITERIA. The degree of internal carotid artery stenosis is based on criteria defined by the Society of Radiologists in Ultrasound (SRU). Normal is no stenosis. Mild is less than 50% stenosis. Moderate is 50-69% stenosis. Severe is greater than 69% stenosis to near occlusion. Near occlusion is a markedly narrowed lumen. Total occlusion is no detectable patent lumen.
--- NOTE | 2020-06-23 14:35 | ECG_ITS ---
[facility] Test Date: 2020-06-23 Pat Name: Jason Canela Department: Room: 150 Gender: Male Academic Affairs Director: : [id number] Requested By: Orlin Vale Order Number: [id number] Maddison MD: LYLA SEXTON Measurements Intervals [place] Rate: 94 P: 53 [place]: 158 QRS: -18 QRSD: 112 T: 57 QT: 385 QTc: 484 Interpretive Statements SINUS RHYTHM MODERATE INTRAVENTRICULAR CONDUCTION DELAY [110+ ms QRS DURATION] MINIMAL VOLTAGE CRITERIA FOR LVH, CONSIDER NORMAL VARIANT [MEETS CRITERIA IN ONE OF: R(aVL), S(V1), R(V5), R(V5/V6)+S(V1)] Compared to ECG 03/27/2018 20:31:08 T-wave abnormality no longer present Electronically Signed On 06-23-2020 15:47:11 DRY CLEANING MANAGER by LYLA SEXTON [id number]
--- NOTE | 2020-06-23 14:35 | XRR_ITS ---
PROCEDURE INFORMATION: Exam: XR Chest, 1 View Exam date and time: 06/23/2020 5:11 PM Age: 65 years old Clinical indication: Dyspnea; Additional info: AMS TECHNIQUE: Imaging protocol: XR of the chest Views: 1 view. COMPARISON: CR XR chest 2V* [id number] 06/17/2020 4:49 PM FINDINGS: Lungs: There is no consolidation. Pleural space: Blunting of the left lateral costophrenic sulcus suggests pleural fluid. There is no pneumothorax. Heart/Mediastinum: The cardiac silhouette is within normal limits of size given AP technique. Bones/joints: Moderate degenerative disease at the left shoulder. XR/XR chest 1V portable [id number] IMPRESSION: Small left pleural effusion.
[2020-06-23 14:36] VITALS: PULSE 76
--- NOTE | 2020-06-23 14:39 | PM.CONSULT ---
Providers/Reason For Consult Consulting Physican/Specialty*: Psychiatric service Reason for Consult*: Altered mental status Attending Physician: Jerry Colon MD Primary Care Provider: Brannon Valladares, MICHAEL History of Present Illness History of Present Illness Jason Canela is a 65 year old male hypothyroidism, alcohol dependence in remission, 6 COPD, mild one-vessel CAD, EF of 55%, hypertension, major depressive disorder, hyperlipidemia, smoker, fibromyalgia, hypertension, morbid obesity who presents to [facility], NPU unit, for hallucinations. Hospitalist team was consulted for altered mental status, concerning for medical etiology. Patient was admitted to [facility] for hallucinations, auditory, visual hallucinations, confusion, garbled speech. It seems like he had some degree of functioning at least to March of this year when he had a cardiac cath, had extensive doctor visits for cardiovascular intervention. But he presented to [facility] on 06/19/2020 for concerns for increased confusion, auditory, visual hallucinations. This afternoon patient was examined, immediately upon entering the room, he was on the floor, crawling, try to reach for something on the bedside vanity, he was able to get up on both feet, stand, and sit back in bed, he has poor eye contact, acknowledges that I am there, his hair is grown out, seems like he has not been taking care of himself, his speech is minimal, fairly scattered, when I attempted to get an answer from him, I did not get a significant response or a straightforward response, I was able to get from him that he is from [place], does not have kids, has a sister, he is not sure about his parents, knows his name, knows his birthdate, does not know where he is, does not know the date, does not know the time, does not know who the president is, again I cannot get a full straightforward response for his review of systems, it is difficult to a sense of his speech. But is moving all upper and lower extremities, ambulating, no fevers, no hemodynamic compromise, no tachycardia, no low blood pressures. In speaking with the nurses, for the last few days he has been much more coherent, they are able to carry out a conversation with him. But this morning he has become much more confused, he keeps crawling on the floor, he is making less sense, and thus there is a concern for a medical etiology. Review of Systems General: Reports: ROS unobtainable due to medical condition Meds/Allergies Home Medications and Allergies Home Medications Medication Instructions Recorded Confirmed Last Taken Type hydrocodone 10 mg-acetaminophen 1 - 2 tab PO Q4H PRN tab 09/26/19 06/19/20 06/19/20 09:00 History 325 mg tablet albuterol sulfate 90 mcg/actuation 2 inh INHALATION Q4H PRN #18 gm 02/12/20 06/19/20 Unknown Rx aerosol inhaler fluticasone fur. 100 mcg-umeclid 1 inh INHALATION DAILY #28 each 02/12/20 06/19/20 06/19/20 Rx 62.5 mcg-vilant 25 mcg inhalat.powder metoprolol tartrate 25 mg tablet 12.5 mg PO BID #90 tab 03/27/20 06/19/20 Unknown Rx atorvastatin 20 mg tablet 20 mg PO DAILY #30 tab 04/28/20 06/19/20 Unknown Rx famotidine 40 mg tablet 40 mg PO Q12H #60 tab 04/28/20 06/19/20 Unknown Rx hydralazine 50 mg tablet 50 mg PO Q12H #60 tab 04/28/20 06/19/20 Unknown Rx meloxicam 15 mg tablet 15 mg PO DAILY #30 tab 04/28/20 06/19/20 Unknown Rx isosorbide mononitrate 30 mg 30 mg PO QAM #30 tab 04/30/20 06/19/20 Unknown Rx tablet,extended release 24 hr levothyroxine 100 mcg tablet 100 mcg PO DAILY #30 tab 04/30/20 06/19/20 Unknown Rx lisinopril 20 1 tab PO DAILY #30 tab 04/30/20 06/19/20 Unknown Rx mg-hydrochlorothiazide 25 mg tablet duloxetine 60 mg capsule,delayed 120 mg PO DAILY #60 cap 05/08/20 06/19/20 Unknown Rx release acetaminophen [Tylenol Extra 1,000 - 1,500 mg PO PRN 06/19/20 06/19/20 Unknown History Strength] diphenhydramine-acetaminophen 2 - 3 tab PO PRN 06/19/20 06/19/20 06/18/20 History [Tylenol PM Extra Strength] lithium carbonate 300 mg PO QAM 06/19/20 06/19/20 Unknown History lithium carbonate 600 mg PO BEDTIME 06/19/20 06/19/20 Unknown History trazodone 100 mg PO BEDTIME 06/19/20 06/19/20 Unknown History Allergies Allergy/AdvReac Type Severity Reaction Status Date / Time No Known Allergies Allergy Verified 06/19/20 11:35 Current Medications Current Medications Generic Name Dose Route Start Last Admin Trade Name Freq PRN Reason Stop Dose Admin Albuterol Sulfate 2 puff 06/19/20 16:06 06/23/20 09:58 Albuterol 8 Gm Mdi INHALATION 2 puff Q4H PRN Administration shortness of breath or wheezing Atorvastatin Calcium 20 mg 06/19/20 21:00 06/22/20 20:49 Atorvastatin 40 Mg Tablet PO 20 mg BEDTIME DESMOND Administration Benztropine Mesylate 1 mg 06/22/20 09:00 06/23/20 08:49 Benztropine 1 Mg Tablet PO 1 mg BID DESMOND Administration Cyanocobalamin 1,000 mcg 06/21/20 09:00 06/23/20 08:49 Cyanocobalamin 1,000 Mcg Tablet PO 1,000 mcg DAILY DESMOND Administration Famotidine 40 mg 06/19/20 21:00 06/23/20 08:48 Famotidine 20 Mg Tablet PO 40 mg Q12H DESMOND Administration Folic Acid 1 mg 06/20/20 18:00 06/23/20 08:49 Folic Acid 1 Mg Tablet PO 1 mg BID DESMOND Administration Hydralazine HCl 50 mg 06/19/20 21:00 06/23/20 08:49 Hydralazine 50 Mg Tablet PO 50 mg Q12H DESMOND Administration Hydrochlorothiazide 25 mg 06/20/20 09:00 06/23/20 08:49 Hydrochlorothiazide 25 Mg Tablet PO 25 mg DAILY DESMOND Administration Hydroxyzine Pamoate 50 mg 06/19/20 14:55 06/22/20 22:26 Hydroxyzine 25 Mg Capsule PO 50 mg Q6H PRN Administration ANXIETY Isosorbide Mononitrate 30 mg 06/21/20 09:00 06/23/20 08:49 Isosorbide Mononitrate Er 30 Mg Tablet PO 06/29/20 09:01 30 mg DAILY DESMOND Administration Levothyroxine Sodium 100 mcg 06/20/20 09:00 06/23/20 08:49 Levothyroxine 100 Mcg Tablet PO 100 mcg DAILY DESMOND Administration Lisinopril 20 mg 06/20/20 09:00 06/23/20 08:48 Lisinopril 20 Mg Tablet PO 20 mg DAILY DESMOND Administration [place] Carbonate 300 mg 06/22/20 18:00 06/23/20 08:49 [place] Carbonate 300 Mg Capsule PO 300 mg BID DESMOND Administration Meloxicam 15 mg 06/20/20 09:00 06/23/20 08:48 Meloxicam 7.5 Mg Tablet PO 15 mg DAILY DESMOND Administration Metoprolol Tartrate 12.5 mg 06/19/20 18:00 06/23/20 08:48 Metoprolol Tartrate 25 Mg Tablet PO 12.5 mg BID DESMOND Administration Paliperidone 6 mg 06/20/20 15:00 06/23/20 08:49 Paliperidone Er 6 Mg Tablet PO 6 mg DAILY DESMOND Administration PFSH Acute PFSH: Medical History Adult onset hypothyroidism Alcohol dependence, in remission Borderline personality disorder COPD with chronic bronchitis and emphysema Coronary artery disease Fibromyalgia GERD with esophagitis History of tobacco abuse Hypertension Major depressive disorder, recurrent severe without psychotic features Mixed hyperlipidemia Nicotine dependence, cigarettes, uncomplicated Surgical History History of ankle surgery Left ORIF History of removal of cyst Back Family History Other Cancer Diabetes Hypertension Psychiatric illness Social History Smoking and tobacco status: former smoker Quit status (tobacco): has quit using tobacco Year quit tobacco: 1-2 yrs ago Second hand smoke exposure: No Smoking risk assessment/counseling performed?: Yes Tobacco counseling given: counseling >3 minutes Alcohol intake: former Desire information about alcohol rehabilitation?: No Counseling given: No Desire information about substance/drug rehabilitation?: No Counseling given: No Adopted: No Caregiver/support person: No Lives independently: Yes Housing: Manufactured/Mobile home Marital status: service: No Current occupational status: disabled History of recent travel: No Current gender identity: Male Vitals/I&O/Wt Last Vital Signs Temp 97.8 F 06/23/20 14:00 Pulse 76 06/23/20 14:00 Resp 17 06/23/20 14:00 BP 113/78 06/23/20 14:00 Pulse Ox 96 06/23/20 09:59 Weight last 48 hrs Weight 118.388 kg Physical Exam Const: COMMON NORMALS: no acute distress and alert EXAM LIMITATIONS: altered mental status GENERAL APPEARANCE: cooperative NUTRITIONAL APPEARANCE: obese ORIENTATION/CONSCIOUSNESS: Yes oriented to person and Yes confused; not oriented to place and not oriented to time Eye: COMMON NORMALS: Equal, round and reactive pupils present PUPIL: Yes Equal, round and reactive pupils present Neck/C-Spine: COMMON NORMALS: full ROM, no lymphadenopathy and no JVD Chest: COMMONS NORMALS: normal inspection of the chest Resp: COMMON NORMALS: normal respiratory effort, No retractions, No use of accessory muscles and clear to auscultation bilaterally AUSCULTATION: clear to auscultation bilaterally Cardio: COMMON NORMALS: no JVD, regular rate, regular rhythm, S1 normal heart sound present and S2 normal heart sound present RATE: regular rate RHYTHM: regular rhythm HEART SOUNDS: S1 normal heart sound present and S2 normal heart sound present GI: COMMON NORMALS: Normal to inspection, nondistended, normoactive bowel sounds present, Soft to palpation and non-tender INSPECTION: Yes abdominal distension PALPATION: Yes Soft to palpation : COMMON NORMALS: Yes no CVA tenderness BLADDER/KIDNEY EXAM: Yes no CVA tenderness Back/Pelvis: COMMON NORMALS: no CVA tenderness Extremity: COMMON NORMALS: no pedal edema Neuro: SENSORIUM/ORIENTATION: Yes alert, Yes oriented to person, No oriented to place and No oriented to time OTHER: Does not follow neurologic's testing Psych: ATTITUDE: Yes Withdrawn affect present ACTIVITY/MOTOR BEHAVIOR: No appropriate eye contact and Yes fidgeting SPEECH: Yes minimal and Yes slow MOOD & AFFECT: Yes Flat affect present THOUGHT PROCESS: incoherent ATTENTION/CONCENTRATION: Yes concentration grossly impaired MEMORY/COGNITION: Yes cognition grossly impaired A&P Assessment and plan (1) AMS (altered mental status): -Seems like he had some degree of physical and cognitive functioning, as he has had an extensive cardiac work-up, and office visits -As per the notes it seems like these hallucinations and confusion seem new -But he does have a history of major depressive disorder, has had psychiatric admissions -Had a work-up on admission, relatively unremarkable CT head negative for acute stroke, B12 within normal limits folate within normal limits, TSH within normal limits, A1c within normal limits -No fevers -No neck pain, no neck stiffness -Work-up CBC, CMP, TSH, chest x-ray, UA, blood cultures, carotid ultrasound -Can consider a lumbar puncture based on her work-up, if he develops fevers -Continue B12, folic acid, thiamine Status: Acute (2) Coronary artery disease: -1 vessel CAD, medical management -EF is 55% Status: Chronic Qualifiers: Coronary Disease-Associated Artery/Lesion type: [place] artery [place] vs. transplanted heart: [place] heart Associated angina: with unspecified angina Qualified Code(s): I25.119 - Atherosclerotic heart disease of [place] coronary artery with unspecified angina pectoris (3) GERD with esophagitis: Status: Chronic Qualifiers: Esophagitis bleeding: without hemorrhage Qualified Code(s): K21.00 - Gastro-esophageal reflux disease with esophagitis, without bleeding (4) Mixed hyperlipidemia: Status: Chronic (5) Fibromyalgia: -Can hold medication for the next 24 hours monitor mentation Status: Chronic (6) Hypertension: Status: Chronic Qualifiers: Hypertension type: essential hypertension Qualified Code(s): I10 - Essential (primary) hypertension (7) Adult onset hypothyroidism: Continue levothyroxine Status: Chronic (8) Nicotine dependence, cigarettes, uncomplicated: Status: Acute (9) Morbid obesity: Status: Acute Coding Level of Care Code Acute [employer] Interpretive Ranger for g Fwd Diagnoses AMS (altered mental status) R41.82 Coronary artery disease I25.119 Coronary Disease-Associated Artery/Lesion type: [place] artery [place] vs. transplanted heart: [place] heart Associated angina: with unspecified angina GERD with esophagitis K21.00 Esophagitis bleeding: without hemorrhage Mixed hyperlipidemia E78.2 Fibromyalgia M79.7 Hypertension I10 Hypertension type: essential hypertension Adult onset hypothyroidism E03.8 Nicotine dependence, cigarettes, uncomplicated F17.210 Morbid obesity E66.01
--- NOTE | 2020-06-23 16:23 | PM.NPN ---
Subjective NPU Subjective: Interval history: Jason presents today continuing to have some issues with ambulation, issues with communication and articulation, and seemingly less effectively communicative compared to admission. It is noted that his lithium was elevated and so his lithium dose was decreased, and a consult with a hospitalist was ordered just to ensure that there is nothing obvious being missed. He reports that he did get an opportunity to speak to his daughter which made him happy. Mental Status Exam MSE Comments: This is an obese white male in the hospital scrubs with limited grooming and adequate eye contact. With a long lópez reminiscent of the [employer]. No abnormal movements except for some ataxia with gait. Cooperative with exam in no acute distress. Speech was slightly decreased rate and volume, with significant dysarthria. Mood described but answer was unintelligible, affect euthymic. Thought process mostly disorganized. Thought content: Patient denied any suicidal or homicidal ideations, there were no delusions reported or noted outside of the belief of people living in his home that can be found, he denied any auditory or visual hallucinations, but ultimately did endorse voices at home who source is yet to be determined. Attention and concentration were limited and memory was mostly reliable but none were formally tested. He is alert and oriented person and place. Insight and judgment are limited, impulse control appears fair, intellectual ability is likely impaired. Vitals/I&O/Wt Last Vital Signs Temp 97.8 F 06/23/20 14:00 Pulse 76 06/23/20 14:36 Resp 17 06/23/20 14:00 BP 113/78 06/23/20 14:00 Pulse Ox 96 06/23/20 09:59 Weight last 48 hrs Weight 118.388 kg Data NPU : 06/23/20 16:02 06/23/20 16:02 Micro: Microbiology 06/23/20 16:02 Blood Culture - Preliminary Blood SPECIMEN COLLECTED 06/23/20 16:07 Blood Culture - Preliminary Blood SPECIMEN COLLECTED Microbiology 06/23/20 16:02 Blood Blood Culture - Preliminary SPECIMEN COLLECTED 06/23/20 16:07 Blood Blood Culture - Preliminary SPECIMEN COLLECTED A&P Additional A&P Information (1) Hallucinations: (2) Coronary artery disease: (3) History of tobacco abuse: (4) GERD with esophagitis: (5) Mixed hyperlipidemia: (6) Fibromyalgia: (7) Hypertension: (8) Adult onset hypothyroidism: (9) COPD with chronic bronchitis and emphysema: (10) Nicotine dependence, cigarettes, uncomplicated: (11) Borderline personality disorder: (12) Major depressive disorder, recurrent severe without psychotic features: (13) Psychosis: (14) Intellectual disability: This is a 65-year-old white male with a long history of mental health issues but no consistent history of psychotic symptoms presents with family concerns for psychosis and him endorsing strange phenomena in his home with an openness to a trial of an antipsychotic. 1. Continue current medication. 2. Continue every 15 minute checks for safety. 3. Encourage individual, group and milieu therapy. 4. Appreciate PT OT consult. 5. Appreciate hospitalist consult and will await any recommendations. 6. May have to consider transfer to a geriatric psychiatric unit for more specialized treatment. Involuntary Hold Information 96 Hour Hold: 96 Hour Involuntary Admission: No Attestations NPU Medical Necessity Statement*: Inpatient hospitalization is medically necessary and the clinically appropriate intervention at this time. We will monitor medications and make changes as indicated. Likely length of stay 2-4 days. Coding Level of Care Code Acute Applied Psychology Teacher for Ofelia Rhodes
[2020-06-23 16:32] LABS: Basophils % 0.3 %; Eosinophils # 0.2 10^3/uL (0.0-0.8); Eosinophils % 1.9 %; Hematocrit 41.4 % (42.0-52.0); Hemoglobin 13.5 g/dL (11.7-16.6); Lymphocytes # 0.9 10^3/uL (0.8-4.8); Lymphocytes % 10.8 %; Mean Corpuscular HGB Conc 32.6 g/dL (30.0-36.0); Mean Platelet Volume 10.5 fL (7.4-10.4); Monocytes # 0.7 10^3/uL (0.2-0.9); Neutrophils % 77.6 %; Nucleated Red Blood Cells % 0 %; Platelet Count 321 10^3/cmm (130-400); Red Blood Count 4.36 10^6/uL (4.1-5.3); White Blood Count 7.9 10^3/uL (4.0-10.0)
[2020-06-23 16:40] LABS: Troponin T (5th) Once 18 ng/L (0-15)
[2020-06-23 16:41] LABS: Ammonia 23 umol/L (16-60)
[2020-06-23 17:08] LABS: Alanine Aminotransferase 18 U/L (0-41); Alkaline Phosphatase 72 IU/L (40-130); Anion Gap 15.9 (5-19); Aspartate Amino Transferase 21 U/L (0-40); Blood Urea Nitrogen 37 mg/dL (8-23); Calcium 10.5 mg/dL (8.5-10.5); Carbon Dioxide 24 mmol/L (22-29); Chloride 101 mmol/L (98-107); Globulin 3.4 g/dL (1.3-4.6); Glomerular Filtration Rate 30.3 mL/min (90-130); Glucose 104 mg/dL (65-115); Magnesium 2.1 mg/dL (1.7-2.3); NT Pro B Type Natriuretic Pept 25 pg/mL (0-125); Osmolality Calculated 293 mOsm/kg (285-295); Phosphorus 2.6 mg/dL (2.5-4.5); Potassium 3.9 mmol/L (3.5-5.1); Sodium 137 mmol/L (136-145); Thyroid Stimulating Hormone 3.07 uIU/mL (0.27-4.20); Total Protein 7.4 g/dL (6.6-8.7)
[2020-06-23 17:12] LABS: Alcohol Level < 10 mg/dL (0-10)
[2020-06-23 17:33] LABS: Procalcitonin 0.16 ng/mL (0-0.5)
[2020-06-23 17:34] LABS: Erythrocyte Sedimentation Rate 21 mm/hr (0-10)
[2020-06-23 18:06] LABS: Vitamin B12 1739 pg/mL (232-1245)
[2020-06-23 18:34] LABS: Urine Appearance Hazy (CLEAR); Urine Color Amber (Yellow); pH Urine 5 (5-7)
[2020-06-23 18:35] LABS: Blood Urine Neg (Negative); Glucose Urine UA Norm (Normal); Ketones Urine 1+ (Negative); Nitrate Urine Negative (Negative); Protein Urine Trace (Negative)
[2020-06-23 18:36] LABS: Add Urine Microscopic? YES; Bilirubin Urine 1+ (Negative); Leukocyte Esterase Urine Trace (Negative); Urobilinogen Urine 1 mg/dL (Negative)
[2020-06-23 18:38] LABS: Hyaline Casts Urine 25-40 /lpf; Mucus Urine 2+ /hpf; Squamous Epithelial Cell Urine RARE /hpf (0-5)
[2020-06-23 18:39] LABS: Bacteria Urine 1+ /hpf
[2020-06-23 18:42] LABS: Add Urine Culture? No
[2020-06-23 19:54] VITALS: BP 90/63; PULSE 86; RESP 19; TEMP 37.8; O2SAT 96
[2020-06-23] MEDS: haloperidol inj 5 mg/mL INJ 1 mL IM (21:05)
--- NOTE | 2020-06-23 22:42 | PC.NURSE ---
PM ASSESSMENT-- APPEARS CONFUSED AND HALLUCINATING, FEELING FOR THINGS. SMILES WHEN ASKED QUESTIONS, NO APPROPRIATE ANSWERS. HAS 1-1 SITTER. PATIENT SET IN FLOOR, HAD TO HAVE ASSIST OF 3 TO GET BACK ON EDGE OF BED. SPIT OUT PM MEDS, WAS GIVEN HALDOL 5 MG IM IN LEFT HIP BY ABBEY SOLE LEVELER. IS TAKING SOME TIME TO GET SETTLED DOWN TO REST. CONTINUES TO HAVE 1-1 SITTER.
[2020-06-24] MEDS: haloperidol inj 5 mg/mL INJ 1 mL IM ×2 (00:58→19:51)
[2020-06-24] MEDS: diphenhydrAMINE 50 mg/mL SDV 1mL IM (00:58)
[2020-06-24] MEDS: LORazepam 2 mg/mL INJ 1 mL IM (00:59)
[2020-06-24 06:00] VITALS: BP 120/87; PULSE 81; RESP 14; TEMP 36.8; O2SAT 97
[2020-06-24 08:25] VITALS: PULSE 81; RESP 16; O2SAT 97
[2020-06-24] MEDS: hydroCHLOROthiazide 25 mg Tablet PO (08:54)
[2020-06-24] MEDS: meloxicam 7.5 mg tablet 15 MG PO (08:54)
[2020-06-24] MEDS: lithium carbonate 300 mg Capsule PO (08:54)
[2020-06-24] MEDS: metoprolol tartrate 25 mg Tablet 12.5 MG PO (08:54)
[2020-06-24] MEDS: levothyroxine 100 mcg Tablet PO (08:54)
[2020-06-24] MEDS: hyDRALAzine 50 mg Tablet PO (08:54)
[2020-06-24] MEDS: benztropine 1 mg Tablet PO (08:55)
[2020-06-24] MEDS: cyanocobalamin 1,000 mcg Tablet 1000 MCG PO (08:55)
[2020-06-24] MEDS: paliperidone ER 6 mg Tablet PO (08:55)
[2020-06-24] MEDS: isosorbide mononitrate ER 30 mg Tablet PO (08:55)
[2020-06-24] MEDS: folic acid 1 mg Tablet PO (08:55)
[2020-06-24] MEDS: famotidine 20 mg Tablet 40 MG PO (08:55)
[2020-06-24] MEDS: lisinopril 20 mg Tablet PO (08:55)
[2020-06-24] MEDS: thiamine 100 mg Tablet PO (08:58)
[2020-06-24] MEDS: nystatin powder 15 gm Btl 1 APPLIC TOPICAL ×2 (10:50→23:06)
[2020-06-24 13:21] VITALS: BP 87/53; PULSE 81; RESP 16; TEMP 36.8; O2SAT 97
--- NOTE | 2020-06-24 15:25 | CTR_ITS ---
PROCEDURE INFORMATION: Exam: CT Head Without Contrast Exam date and time: 06/24/2020 6:04 PM Age: 65 years old Clinical indication: Altered mental status/memory loss; Additional info: AMS TECHNIQUE: Imaging protocol: Computed tomography of the head without contrast. Radiation optimization: All CT scans at this facility use at least one of these dose optimization techniques: automated exposure control; mA and/or kV adjustment per patient size (includes targeted exams where dose is matched to clinical indication); or iterative reconstruction. COMPARISON: CT head wo con* [id number] 06/19/2020 12:14 PM RADIATION DOSE METRICS: Total DLP (mGy-cm): 695.79 FINDINGS: Brain: No acute intracranial hemorrhage or mass effect. There is mild decreased attenuation in the periventricular white matter, likely from microvascular disease. No definite acute infarct by CT. MRI could be more sensitive/specific for detection, as clinically directed. Cerebral ventricles: Ventricle size is normal for age. Bones/joints: No definite acute skull fracture. Paranasal sinuses: Minimal mucosal thickening in the ethmoid and sphenoid sinuses. Mastoid air cells: Essentially complete opacification of the left mastoid air cells and left middle ear cavity. Partial opacification of right mastoid air cells. Vasculature: Vascular calcifications in the internal carotid and vertebral basilar systems. CT/CT head wo con* [id number] IMPRESSION: 1. No acute intracranial hemorrhage or mass effect. 2. Changes of microvascular disease. 3. No definite acute infarct by CT, see above. 4. Mastoid and paranasal sinus findings as discussed above. 5. Other findings discussed above. 6. Some limitations due to artifact from patient motion. Radiation Dose CTDIVOL = (mGy): DLP = 695.79 (mGy-cm)
--- NOTE | 2020-06-24 15:25 | CTR_ITS ---
PROCEDURE INFORMATION: Exam: CT Chest Without Contrast; Diagnostic Exam date and time: 06/24/2020 6:04 PM Age: 65 years old Clinical indication: Abdominal pain; Generalized; Chest pain; Type not specified; Additional info: New ruth, CR 2.2, evaluate for obstruction TECHNIQUE: Imaging protocol: Diagnostic computed tomography of the chest without contrast. Radiation optimization: All CT scans at this facility use at least one of these dose optimization techniques: automated exposure control; mA and/or kV adjustment per patient size (includes targeted exams where dose is matched to clinical indication); or iterative reconstruction. COMPARISON: (CHEST, ) 2020-06-23 17:02 RADIATION DOSE METRICS: Total DLP (mGy-cm): 2821.04 FINDINGS: Lungs: There is a pulmonary parenchymal calcification consistent with remote granulomatous organism exposure. Pleural space: Unremarkable. No pneumothorax. No pleural effusion. Heart: Unremarkable. No cardiomegaly. No pericardial effusion. Aorta: Unremarkable. No aortic aneurysm. Lymph nodes: Unremarkable. No enlarged lymph nodes. Bones/joints: Moderate left greater than right degenerative shoulder joint disease. Soft tissues: Unremarkable. Other findings: Noncalcified right minor fissural nodule measuring 9 mm, recommend follow-up. IMPRESSION: Noncalcified right minor fissural nodule measuring 9 mm, recommend follow-up. COMMENTS: As per Fleischner Society guidelines for follow-up and management of pulmonary nodules: Recommend initial follow-up chest CT at 3, 9 and 24 months. Consider contrast enhanced chest CT, PET scan and/or biopsy as clinically warranted. PROCEDURE INFORMATION: Exam: CT Abdomen And Pelvis Without Contrast Exam date and time: 06/24/2020 6:04 PM Age: 65 years old Clinical indication: Abdominal pain; Generalized; Chest pain; Type not specified; Additional info: New ruth, CR 2.2, evaluate for obstruction TECHNIQUE: Imaging protocol: Computed tomography of the abdomen and pelvis without contrast. Radiation optimization: All CT scans at this facility use at least one of these dose optimization techniques: automated exposure control; mA and/or kV adjustment per patient size (includes targeted exams where dose is matched to clinical indication); or iterative reconstruction. COMPARISON: (CHEST, ) 2020-06-23 17:02 RADIATION DOSE METRICS: Total DLP (mGy-cm): 2821.04 FINDINGS: Limitations: Artifact related to patient's arm position limits evaluation. Study is limited by the absence of contrast. Liver: Normal. No mass. Gallbladder and bile ducts: Normal. No calcified stones. No ductal dilation. Pancreas: Normal. No ductal dilation. Spleen: Normal. No splenomegaly. Adrenal glands: Normal. No mass. Kidneys and ureters: Couple small tiny punctate renal nonobstructing calculi . Indeterminate right renal exophytic 1.3 cm right renal lesion has indeterminate density, recommend follow-up or compare to priors. Stomach and bowel: Unremarkable. No obstruction. No mucosal thickening. Appendix: No evidence of appendicitis. Intraperitoneal space: Unremarkable. No free air. No significant fluid collection. Vasculature: Unremarkable. No abdominal aortic aneurysm. Lymph nodes: Unremarkable. No enlarged lymph nodes. Urinary bladder: Unremarkable as visualized. Reproductive: Unremarkable as visualized. Bones/joints: Mild moderate lumbar spondylosis. Soft tissues: Unremarkable. CT/CT chest abd pel wo con IMPRESSION: 1. No bowel obstruction. 2. Couple small tiny punctate renal nonobstructing calculi . 3. Indeterminate right renal exophytic 1.3 cm right renal lesion has indeterminate density, recommend follow-up or compare to priors. Radiation Dose CTDIVOL = (mGy): DLP = 2821.04~2821.04 (mGy-cm)
--- NOTE | 2020-06-24 15:53 | PM.NPN ---
Subjective NPU Subjective: Interval history: Jason presents today continuing to seem to the compensate/digress with today him basically mumbling and uttering nonsensical grunts. He now speaks like his tongue is his enemy. He is essentially now unable to ambulate unassisted. I have a long conversation with hospitalist about concerns, discussed with daughter who was present consideration of transfer to a [facility] psychiatric facility given his apparent need for a geriatricly directed evaluation and treatment strategy. We discussed the risks, benefits and alternatives of transfer to the medical floor for definitive valuation for any contributory factors and if that is not demonstrative of a acute issue then transfer to a geriatric unit would be appropriate. Mental Status Exam MSE Comments: This is an obese white male in the hospital scrubs with limited grooming and adequate eye contact. With a long lópez reminiscent of the [employer]. No abnormal movements except for some ataxia with gait. Cooperative with exam in moderate distress. Much of the interview he appeared unaware of my presence reaching around the room in nongoal-directed manner. At times he looked at his arm as if he did not recognize it seeming to be in a clear state of delirium. Speech lacks spontaneity and was mostly unresponsive to questions or attempts to get his attention, with significant dysarthria. Mood was not described, affect delirious and confused. Thought process mostly disorganized. Thought content: He did not respond to questions about lethality but did not have aggression towards himself or others, he did at times appeared to be attending to internal stimuli and seemed at times to be distracted by remembering that were not apparent to the other attendees. Attention and concentration were impaired and memory was unreliable but none were formally tested. He is awake but disoriented. Insight and judgment and impulse control are impaired, intellectual ability is likely impaired. Vitals/I&O/Wt Last Vital Signs Temp 98.2 F 06/24/20 13:21 Pulse 81 06/24/20 13:21 Resp 16 06/24/20 13:21 BP 87/53 06/24/20 13:21 Pulse Ox 97 06/24/20 13:21 Data NPU : 06/24/20 15:54 06/24/20 15:54 Micro: Microbiology 06/24/20 16:00 Blood Culture - Preliminary Blood SPECIMEN COLLECTED 06/24/20 15:54 Blood Culture - Preliminary Blood SPECIMEN COLLECTED 06/23/20 16:02 Blood Culture - Preliminary Blood NEGATIVE TO DATE 06/23/20 16:07 Blood Culture - Preliminary Blood NEGATIVE TO DATE Microbiology 06/24/20 16:00 Blood Blood Culture - Preliminary SPECIMEN COLLECTED 06/24/20 15:54 Blood Blood Culture - Preliminary SPECIMEN COLLECTED 06/23/20 16:02 Blood Blood Culture - Preliminary NEGATIVE TO DATE 06/23/20 16:07 Blood Blood Culture - Preliminary NEGATIVE TO DATE A&P Additional A&P Information (1) Hallucinations: (2) Coronary artery disease: (3) History of tobacco abuse: (4) GERD with esophagitis: (5) Mixed hyperlipidemia: (6) Fibromyalgia: (7) Hypertension: (8) Adult onset hypothyroidism: (9) COPD with chronic bronchitis and emphysema: (10) Nicotine dependence, cigarettes, uncomplicated: (11) Borderline personality disorder: (12) Major depressive disorder, recurrent severe without psychotic features: (13) Psychosis: (14) Intellectual disability: (15) delirium of unknown etiology This is a 65-year-old white male with a long history of mental health issues but no consistent history of psychotic symptoms, with family concerns for psychosis and him endorsing strange phenomena in his home with an openness to a trial of an antipsychotic, presents today with continuing deterioration and appearing to be in acute delirium. 1. Continue current medication. But discussed discontinuation of Invega and Cogentin given those are the additions since admission with the hospitalist. 2. Transfer to medical unit for the treatment of his altered mental status. 3. Continue exploration of geriatric psychiatric bed after medical clearance to consider transfer to a geriatric psychiatric unit for more specialized treatment. Involuntary Hold Information 96 Hour Hold: 96 Hour Involuntary Admission: No Attestations NPU Medical Necessity Statement*: Inpatient hospitalization is medically necessary and the clinically appropriate intervention at this time. However please see primary team note for medical necessity. We will continue to follow on the medical unit and agree with return to psychiatric services likely at a geriatric facility after medical clearance. Coding Level of Care Code Acute Regional Forester for Of[facility]
--- NOTE | 2020-06-24 16:21 | PM.PN ---
Subjective Subjective: Interval history: Patient noted to be increasingly confused since this morning. He is only mumbling, illegible words. Appears confused, purposeless movements such as picking on his pants toes. Unable to state his name or age does not seem oriented. T-max 100 Fahrenheit. Creatinine yesterday noted to be 2.2, up from 0.7 yesterday. Per report from n.p.u, patient was able to ambulate yesterday with a walker, sit up in bed etc. however since this morning he is unable to do so. Medications: Reviewed: Yes Vitals/I&O/Wt Last Vital Signs Temp 98.2 F 06/24/20 13:21 Pulse 81 06/24/20 13:21 Resp 16 06/24/20 13:21 BP 87/53 06/24/20 13:21 Pulse Ox 97 06/24/20 13:21 Weight last 48 hrs Weight 118.388 kg Physical Exam Narrative: EXAM NARRATIVE: GEN: Awake, confused, picking movements over his lower extremities, do not appear to be purposeful CVS: S1S2 N RS: diminished breath sounds to auscultation B/L Abd: Soft, nt/nd , bs+ COURT ABSTRACTOR: moves all extremities in bed, though not purposeful, mumbles illegibly. Data : 06/24/20 15:54 06/23/20 16:02 Micro: Microbiology 06/24/20 16:00 Blood Culture - Preliminary Blood SPECIMEN COLLECTED 06/24/20 15:54 Blood Culture - Preliminary Blood SPECIMEN COLLECTED 06/23/20 16:02 Blood Culture - Preliminary Blood NEGATIVE TO DATE 06/23/20 16:07 Blood Culture - Preliminary Blood NEGATIVE TO DATE A&P Assessment and plan (1) AMS (altered mental status): Patient has been having gradually worsening mental status changes since admission. Several modifications have been made to his psych medications, however he continues to worsen. Today on exam noted to be confused, having purposeless movement, illegible words, not being able to sit up or walk, ambulating yesterday with a walker. This does appear to be a change in his mental status over previously. My concern would be for acute encephalopathy. His creatinine also between admission to yesterday went from 0.7-2.2. BUN not significantly elevated therefore doubt uremia, however will work him up for possible infectious causes now also with temperature of 100 Fahrenheit. Labs including CBC, CMP, procalcitonin, blood culture now Check Covid rapid antigen CT of the chest abdomen and pelvis to evaluate for any underlying sources such as pneumonia, obstructive uropathy CT head given change in mental status over yesterday. stat ABG to evalute for hypercapnea Start ceftriaxone 1 g IV every 24 hours empirically. Ua with + LA, + WBC Stop cogentin and invega.haldol prn if needed . Status: Acute (2) MELVINA (acute kidney injury): cr at 2.[address] to r/o obstrcution urine lytes now Status: Acute Attestations Medical Necessity Statement*: AMS, concern for metabolic encephalopathy, sepsis evaluation, transfer to medical floors Coding Level of Care Code Acute Director [employer] for [facility] Diagnoses AMS (altered mental status) R41.82 MELVINA (acute kidney injury) N17.9
[2020-06-24 16:23] LABS: Basophils % 0.3 %; Eosinophils # 0.1 10^3/uL (0.0-0.8); Eosinophils % 1.6 %; Hematocrit 39.2 % (42.0-52.0); Hemoglobin 12.8 g/dL (11.7-16.6); Lymphocytes # 0.7 10^3/uL (0.8-4.8); Lymphocytes % 9.7 %; Mean Corpuscular HGB Conc 32.7 g/dL (30.0-36.0); Mean Corpuscular Hemoglobin 30.8 pg (28.0-34.0); Mean Corpuscular Volume 94.5 fL (80-94); Mean Platelet Volume 10.5 fL (7.4-10.4); Monocytes # 0.7 10^3/uL (0.2-0.9); Monocytes % 9.5 %; Neutrophils % 78.6 %; Nucleated Red Blood Cells % 0 %; Platelet Count 306 10^3/cmm (130-400); Red Blood Count 4.15 10^6/uL (4.1-5.3); White Blood Count 7.5 10^3/uL (4.0-10.0)
[2020-06-24 16:39] LABS: SARS Covid-2 Antigen Negative (Negative)
[2020-06-24 16:42] LABS: ABG PCO2 29.8 mmHg (35-45); ABG PH Result 7.48 (7.35-7.45); Alveolar-Arterial Oxygen Gradi 4.9 mmHg (5-10); Arterial Blood Gas Hematocrit 39.9 % (42-52); Base Excess ABG -0.4 mmol/L (-2.0-2.0); Blood Gas Operator Identificat AMH; Blood Gas Sample Site Brachial, right; Blood Gas Sample Type Arterial; Carboxyhemoglobin 1.1 %THgb (0.4-20.1); HCO3 ABG 22.2 mmol/L (22-26); HGB O2 Sat 94.8 % (95-100); Ionized Calcium Level - ABG 1.3 mmol/L (1.1-1.4); Methemoglobin 0.6 % (0.4-1.5); Oxygen Device ROOM AIR; Oxygen Saturation ABG 96.5; PO2 ABG 74.4 mmHg (80.0-100.0); Potassium Level - ABG 3.7 mmol/L (3.5-5.0)
[2020-06-24 16:52] LABS: Alanine Aminotransferase 21 U/L (0-41); Albumin Level 3.8 g/dL (3.5-5.2); Alkaline Phosphatase 69 IU/L (40-130); Anion Gap 15.8 (5-19); Aspartate Amino Transferase 25 U/L (0-40); Blood Urea Nitrogen 43 mg/dL (8-23); Carbon Dioxide 24 mmol/L (22-29); Chloride 103 mmol/L (98-107); Creatinine Clr Calc Pharmacy 47.2061; Globulin 3.3 g/dL (1.3-4.6); Glucose 95 mg/dL (65-115); Osmolality Calculated 299 mOsm/kg (285-295); Potassium 3.8 mmol/L (3.5-5.1); Sodium 139 mmol/L (136-145); Total Protein 7.1 g/dL (6.6-8.7)
[2020-06-24 17:20] VITALS: BP 82/53; PULSE 78; RESP 20; TEMP 36.2; O2SAT 92
--- NOTE | 2020-06-24 17:21 | PC.NURSE ---
Reported pts blood pressure to nurse.
[2020-06-24 17:43] LABS: Procalcitonin 0.16 ng/mL (0-0.5)
[2020-06-24] MEDS: sodium chloride 0.9% 1,000 ML 75 ML IV (17:57)
[2020-06-24] MEDS: cefTRIAXone 1,000 MG in sodium chloride 0.9% (plus) 50 ML 100 MG IV (17:58)
--- NOTE | 2020-06-24 18:37 | PC.NURSE ---
[facility] conventional mortgage underwriter was given a note that says for placement in [facility] follow up with Wilman at [facility] Rodo [phone]
--- NOTE | 2020-06-24 20:23 | PC.NURSE ---
Patients daughter called, this RN updated her on patients status. No other needs voiced at this time, will continue to monitor.
--- NOTE | 2020-06-24 20:24 | PC.NURSE ---
Administered haldol IM to patient due to physical aggression. Patient tried multiple times to kick his sitter. Patient is currently still confused and trying to get out of bed, but is no longer hitting or kicking. No other needs voiced at this time. Will continue to monitor.
[2020-06-24] MEDS: OLANZapine 10 mg VIAL IM (22:17)
[2020-06-25] VITALS: BP 107/64; PULSE 90; RESP 19; TEMP 35.9; O2SAT 90
[2020-06-25] MEDS: haloperidol inj 5 mg/mL INJ 1 mL IM ×2 (00:51→01:44)
--- NOTE | 2020-06-25 02:38 | PC.NURSE ---
The order for Zyprexa IM injection given at 21:30 this evening was given over the phone to this nurse. Accidentally put in under the incorrect physician. Medication was already given by the pt care nurse. Placed a second order with the correct physician and non-administered stating see other order for same medication . Unable to cancel previous order since it was already administered.
[2020-06-25] MEDS: dextrose 5%-sod chloride 0.9% 1,000 ML 100 ML IV ×2 (04:33→16:11)
--- NOTE | 2020-06-25 06:20 | PC.NURSE ---
Patients daughter called again this AM. Spoke with her and updated her on patients status. No other concerns voiced at this time, will continue to monitor.
[2020-06-25 07:17] VITALS: BP 126/69; PULSE 78; RESP 24; TEMP 37; O2SAT 90
[2020-06-25 08:40] LABS: Potassium, Radom Urine 43 mmol/L; Urine Random Chloride 78 mmol/L; Urine Random Sodium 89 mmol/L
[2020-06-25] MEDS: lithium carbonate 300 mg Capsule PO ×2 (09:56→18:00)
[2020-06-25] MEDS: metoprolol tartrate 25 mg Tablet 12.5 MG PO ×2 (09:57→18:00)
[2020-06-25] MEDS: levothyroxine 100 mcg Tablet PO (09:59)
[2020-06-25] MEDS: nystatin powder 15 gm Btl 1 APPLIC TOPICAL (11:33)
[2020-06-25 11:45] VITALS: BP 131/92; PULSE 73; RESP 22; TEMP 36.8; O2SAT 94
[2020-06-25 13:45] LABS: Basophils % 0.3 %; Eosinophils # 0.2 10^3/uL (0.0-0.8); Eosinophils % 2.9 %; Hematocrit 40.5 % (42.0-52.0); Hemoglobin 13.2 g/dL (11.7-16.6); Lymphocytes # 0.7 10^3/uL (0.8-4.8); Lymphocytes % 10.1 %; Mean Corpuscular HGB Conc 32.6 g/dL (30.0-36.0); Mean Corpuscular Hemoglobin 30.7 pg (28.0-34.0); Mean Corpuscular Volume 94.2 fL (80-94); Mean Platelet Volume 10.3 fL (7.4-10.4); Monocytes # 0.6 10^3/uL (0.2-0.9); Monocytes % 9.2 %; Neutrophils # 5.37 10^3/uL (1.8-7.7); Neutrophils % 77.2 %; Nucleated Red Blood Cells % 0 %; Platelet Count 291 10^3/cmm (130-400)
[2020-06-25 14:21] LABS: Alanine Aminotransferase 27 U/L (0-41); Albumin Level 3.9 g/dL (3.5-5.2); Alkaline Phosphatase 72 IU/L (40-130); Anion Gap 10.5 (5-19); Aspartate Amino Transferase 32 U/L (0-40); Blood Urea Nitrogen 41 mg/dL (8-23); Carbon Dioxide 26 mmol/L (22-29); Chloride 105 mmol/L (98-107); Creatinine Clr Calc Pharmacy 82.6106; Globulin 3.3 g/dL (1.3-4.6); Glucose 109 mg/dL (65-115); Osmolality Calculated 297 mOsm/kg (285-295); Potassium 3.5 mmol/L (3.5-5.1); Sodium 138 mmol/L (136-145); Total Bilirubin 0.7 mg/dL (0.15-1.2); Total Protein 7.2 g/dL (6.6-8.7)
[2020-06-25 14:30] LABS: NT Pro B Type Natriuretic Pept 17 pg/mL (0-125)
[2020-06-25 14:39] LABS: HIV 1 & 2 Antibody Non-Reactive (Non-Reactiv); HIV 1 & 2 Antigen Non-Reactive (Non-Reactiv)
[2020-06-25 16:00] VITALS: BP 148/81; PULSE 74; RESP 16; TEMP 36.8; O2SAT 95
[2020-06-25] MEDS: cefTRIAXone 1,000 MG in sodium chloride 0.9% (plus) 50 ML 100 MG IV (16:11)
--- NOTE | 2020-06-25 16:13 | P.PN_ITS ---
Subjective Subjective: Interval history: Mental status appears to be marginally better. Speech is still extremely slurred. He is disoriented, unable to tell me his name age date of or where he is currently located, however is able to formulate sentences today and is joking with staff present in the room. Does reply appropriately to questions regarding hunger, pain, need to urinate etc. he is following commands today to mine wirer fingers, move all extremities appropriately. 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 Several modifications have been made to his psych medications, however he continues to worsen. On 06/24 exam noted to be confused, having p urposeless movement, illegible words, not being able to sit up or walk, ambulating previosuly with a walker. This does appear to be a change in his mental status over previously. Concern acute encephalopathy. Sepsis work-up performed, thus far with normal leukocytosis, negative procalcitonin, CT chest abdomen and pelvis without any overt sources of infection such as pneumonia or intra-abdominal abscesses. Creatinine is improving today from 2.1-1.2 with hydration. Urine output noted to be greater than 1 L. Blood culture remains pending. Covid rapid antigen returned negative. CT head also without any acute stroke changes. Patient has been empirically started on ceftriaxone based on a positive UA, urine culture is pending. ABG without any hypoxia or hypercapnia. Patient mental status is somewhat improved today, speech continues to be extremely slurred and he remains disoriented, however today he is able to form few legible sentences and follows commands. Continue to hold cogentin and invega.haldol prn if needed. [place] continued for now. Will continue to monitor for improvement ove rthe next 24 hrs, if not significantly improved, will likely need lumbar puncture Status: Acute (2) MELVINA (acute kidney injury): cr at 2.2 from 0.7 upon admission , improving now to 1.2 with hydration no evidence of urinary obtsruction on imaging may be secondary to poor po intake Status: Acute Attestations Medical Necessity Statement*: ongoing inpatient admission for evaluation and management of AMS, close neuro monitoring, not returned yet to baseline Coding Level of Care Code Acute Customer Assistance Associate for [facility] Diagnoses AMS (altered mental status) R41.82 MELVINA (acute kidney injury) N17.9
[2020-06-25] MEDS: folic acid 1 mg Tablet PO (18:00)
--- NOTE | 2020-06-25 18:37 | PC.NURSE ---
SHIFT SUMMARY PATIENT HAS OVERALL HAD A GOOD DAY. HE IS MAKING SOME SENTENCES THAT MAKE SENSE. WORDS ARE STILL GARBLED, PER HIS DAUGHTER HE IS STILL NOT AT BASELINE. HE CAN STILL BE MILDLY AGITATED, IT SEEMS HE GETS THIS WAY WHEN HE UNDERSTANDS THAT THE NURSES AREN'T ABLE TO UNDERSTAND HIM. HE WAS ABLE TO JOKE WITH THE NURSES AND DID MAKE MANY COHERENT SENTENCES.
--- NOTE | 2020-06-25 19:49 | P.PN_ITS ---
Subjective NPU Subjective: Interval history: Jason presents today looking better than the date he was transferred. His words seemed much more intelligible, he seemed more pleasant and was able to communicate thoughts in a way that were understandable. The staff is still struggling with him trying to the but he was absent the purposeless movement that was seen in days prior. He reports that his daughter had been up to visit him and he was hoping to continue to get better. Mental Status Exam MSE Comments: This is an obese white male in the hospital scrubs with limited grooming and adequate eye contact. With a long lópez reminiscent of the [employer]. No abnormal movements and he was not seen walking to determine whether his gait had improved. Cooperative with exam in no acute distress. Speech was more normal volume slightly increased rate but but still had more difficulty with articulation than at admission with an almost fullness of his tongue like he cannot get it out of the way, with significant dysarthria. Mood was reported is better, affect pleasant. Thought process more organized. Thought content: He denied suicidal or homicidal ideation, there were no delusions reported or noted, he denied any auditory or visual hallucinations. Attention and concentration were improved and memory was more reliable but none were formally tested. He was alert and oriented times person and place. Insight and judgment are improving and impulse control is improving, intellectual ability is likely impaired. Vitals/I&O/Wt Last Vital Signs Temp 98.2 F 06/25/20 20:00 Pulse 75 06/25/20 20:00 Resp 19 06/25/20 20:00 BP 118/77 06/25/20 20:00 Pulse Ox 100 06/25/20 20:00 06/25/20 14:59 Intake Total 1240 / 1240 Output Total 1050 / 1050 Balance 190 / 190 Data NPU : 06/25/20 13:28 06/25/20 13:28 Micro: Microbiology 06/24/20 16:00 Blood Culture - Preliminary Blood NEGATIVE TO DATE 06/24/20 15:54 Blood Culture - Preliminary Blood NEGATIVE TO DATE Microbiology 06/24/20 16:00 Blood Blood Culture - Preliminary NEGATIVE TO DATE 06/24/20 15:54 Blood Blood Culture - Preliminary NEGATIVE TO DATE A&P Additional A&P Information (1) Hallucinations: (2) Coronary artery disease: (3) History of tobacco abuse: (4) GERD with esophagitis: (5) Mixed hyperlipidemia: (6) Fibromyalgia: (7) Hypertension: (8) Adult onset hypothyroidism: (9) COPD with chronic bronchitis and emphysema: (10) Nicotine dependence, cigarettes, uncomplicated: (11) Borderline personality disorder: (12) Major depressive disorder, recurrent severe without psychotic features: (13) Psychosis: (14) Intellectual disability: (15) delirium of unknown etiology This is a 65-year-old white male with a long history of mental health issues but no consistent history of psychotic symptoms, with family concerns for psychosis and him endorsing strange phenomena in his home with an openness to a trial of an antipsychotic, presents today with continuing deterioration and appearing to be in acute delirium. 1. Continue current medication. 2. We will continue to follow. 3. Continue exploration of geriatric psychiatric bed after medical clearance to consider transfer to a geriatric psychiatric unit for more specialized treatment. Involuntary Hold Information 96 Hour Hold: 96 Hour Involuntary Admission: No Attestations NPU Medical Necessity Statement*: N/A. Please see primary team note for medical necessity. Coding Level of Care Code Acute Community Relations Police Lieutenant for Ofelia Rhodes
[2020-06-25 20:00] VITALS: BP 118/73; PULSE 75; RESP 19; TEMP 36.8; O2SAT 100
--- NOTE | 2020-06-25 20:41 | PC.NURSE ---
Updated patients daughter on patients status. No other concerns noted, will continue to monitor.
[2020-06-25] MEDS: atorvastatin 40 mg Tablet 20 MG PO (22:07)
[2020-06-25] MEDS: famotidine 20 mg Tablet 40 MG PO (22:08)
[2020-06-26] VITALS: BP 153/95; PULSE 86; RESP 20; TEMP 36.5; O2SAT 98
[2020-06-26 04:00] VITALS: BP 129/88; PULSE 79; RESP 21; TEMP 36.6; O2SAT 93
[2020-06-26] MEDS: dextrose 5%-sod chloride 0.9% 1,000 ML 100 ML IV (05:37)
[2020-06-26 07:35] VITALS: BP 107/74; PULSE 73; RESP 16; TEMP 36.8; O2SAT 97
[2020-06-26] MEDS: haloperidol inj 5 mg/mL INJ 1 mL IM (07:57)
[2020-06-26 09:34] LABS: Vitamin B1(Thiamin) Plas/Ser 7 nmol/L (8-30)
[2020-06-26] MEDS: OLANZapine 10 mg VIAL 5 MG IM (10:37)
--- NOTE | 2020-06-26 11:00 | P.PN_ITS ---
Subjective Subjective: Interval history: This morning again with fluctuating mental status. Overnight was agitated. Requiring the use of Haldol. He is able to walk around in the room with the assistance of a walker, however gets intermittently confused and attempts to sit in the middle of the room. He speaks few short legible sentences, however most conversation appears to be still out of context. Speech continues to be slurred. Plan for an LP later this afternoon. 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 Several modifications have been made to his psych medications, however none has consistently made a significant difference. On 06/24 exam noted to be confused, having purposeless movement, illegible words, not being able to sit up or walk, ambulating previosuly with a walker. This does appear to be a change in his mental status over previously. Concern for acute encephalopathy. Sepsis work-up performed, thus far with normal leukocytosis, negative procalcitonin, CT chest abdomen and pelvis without any overt sources of infection such as pneumonia or intra-abdominal abscesses. Creatinine is improving from 2.1-1.2 with hydration. Blood culture remains pending, negative thus far. Covid rapid antigen returned negative. CT head also without any acute stroke changes. Patient has been empirically started on ceftriaxone based on a positive UA, urine culture is pending. ABG without any hypoxia or hypercapnia. Patient mental status was improving yeetrday with him being more awake and alert, able to have a simple conversation, overall been cooperative however again today he is noted to be agitated this morning, not responding appro priately in conversation. He did require Haldol and Zyprexa this morning following which he is currently asleep. He is planned to undergo a lumbar puncture this afternoon. Status: Acute (2) MELVINA (acute kidney injury): cr at 2.2 from 0.7 upon admission , improving now to 1.2 with hydration no evidence of urinary obtsruction on imaging may be secondary to poor po intake Status: Acute Attestations Medical Necessity Statement*: Awaiting lumbar puncture today Coding Level of Care Code Acute Medical Examiner for g [facility] Diagnoses AMS (altered mental status) R41.82 MELVINA (acute kidney injury) N17.9
[2020-06-26] MEDS: LORazepam 2 mg/mL INJ 1 mL 1 MG IVP (12:57)
[2020-06-26 13:58] LABS: Rapid Plasma Reagin Syphilis Nonreactive (Nonreactive)
[2020-06-26 15:26] VITALS: BP 125/71; PULSE 76; RESP 16; TEMP 36.7; O2SAT 97
[2020-06-26] MEDS: cefTRIAXone 1,000 MG in sodium chloride 0.9% (plus) 50 ML 100 MG IV (17:36)
[2020-06-26] MEDS: lithium carbonate 300 mg Capsule PO (18:39)
[2020-06-26] MEDS: folic acid 1 mg Tablet PO (18:39)
[2020-06-26] MEDS: metoprolol tartrate 25 mg Tablet 12.5 MG PO (18:39)
--- NOTE | 2020-06-26 18:54 | PM.NPN ---
Subjective NPU Subjective: Interval history: Jason presents today seeming not as good as he was yesterday and struggling to articulate words. He is back to doing the mumbling and having some words be understood and then having a fairly inappropriate laugh when asked to explain what he just said. He was in the hospital bed in the aide reports that he was not doing well today with ambulation. Mental Status Exam MSE Comments: This is an obese white male in the hospital scrubs with limited grooming and adequate eye contact. With a long lópez reminiscent of the [employer]. No abnormal movements and he was not seen walking to determine whether his gait had improved. Cooperative with exam in no acute distress. Speech was more normal volume slightly increased rate but but still had more difficulty with articulation than at admission with an almost fullness of his tongue like he cannot get it out of the way, with significant dysarthria. Mood was reported as better, affect a little more irritable. Thought process more organized. Thought content: He denied suicidal or homicidal ideation, there were no delusions reported or noted, he denied any auditory or visual hallucinations. Attention and concentration were improved and memory was hard to determine based on difficulty with understanding his words but none were formally tested. He was alert and oriented times person and place. Insight and judgment are improving and impulse control is improving, intellectual ability is likely impaired. Vitals/I&O/Wt Last Vital Signs Temp 98.6 F 06/26/20 19:53 Pulse 59 L 06/26/20 19:53 Resp 20 H 06/26/20 19:53 BP 119/84 06/26/20 19:53 Pulse Ox 95 06/26/20 19:53 06/26/20 14:59 Intake Total 50 / 50 Output Total Balance 50 / 50 Data NPU : 06/25/20 13:28 06/25/20 13:28 A&P Additional A&P Information (1) Hallucinations: (2) Coronary artery disease: (3) History of tobacco abuse: (4) GERD with esophagitis: (5) Mixed hyperlipidemia: (6) Fibromyalgia: (7) Hypertension: (8) Adult onset hypothyroidism: (9) COPD with chronic bronchitis and emphysema: (10) Nicotine dependence, cigarettes, uncomplicated: (11) Borderline personality disorder: (12) Major depressive disorder, recurrent severe without psychotic features: (13) Psychosis: (14) Intellectual disability: (15) delirium of unknown etiology This is a 65-year-old white male with a long history of mental health issues but no consistent history of psychotic symptoms, with family concerns for psychosis and him endorsing strange phenomena in his home with an openness to a trial of an antipsychotic, presents today with continuing deterioration and appearing to be in acute delirium. 1. Continue current medication. 2. We will continue to follow. 3. Continue exploration of geriatric psychiatric bed after medical clearance to consider transfer to a geriatric psychiatric unit for more specialized treatment. Involuntary Hold Information 96 Hour Hold: 96 Hour Involuntary Admission: No Attestations NPU Medical Necessity Statement*: N/A. Please see primary team note for medical necessity. Coding Level of Care Code Acute Multimedia Services Manager for Ofelia Rhodes
[2020-06-26 19:53] VITALS: BP 119/84; PULSE 59; RESP 20; TEMP 37; O2SAT 95
[2020-06-26] MEDS: famotidine 20 mg Tablet 40 MG PO (20:34)
[2020-06-26] MEDS: atorvastatin 40 mg Tablet 20 MG PO (20:34)
--- NOTE | 2020-06-26 23:56 | PC.NURSE ---
Patient was confused and refused vitals.
[2020-06-26 23:57] VITALS: RESP 18
--- NOTE | 2020-06-26 23:57 | PC.NURSE ---
Patient was confused and refused vitals.
[2020-06-27] MEDS: nystatin powder 15 gm Btl 1 APPLIC TOPICAL ×3 (00:15→22:53)
[2020-06-27 03:41] VITALS: BP 156/88; PULSE 60; RESP 18; TEMP 37.4; O2SAT 96
[2020-06-27] MEDS: dextrose 5%-sod chloride 0.9% 1,000 ML 100 ML IV (06:00)
[2020-06-27 08:00] VITALS: BP 152/94; PULSE 66; RESP 18; TEMP 36.7; O2SAT 94
[2020-06-27] MEDS: lithium carbonate 300 mg Capsule PO (08:14)
[2020-06-27] MEDS: cyanocobalamin 1,000 mcg Tablet 1000 MCG PO (08:14)
[2020-06-27] MEDS: levothyroxine 100 mcg Tablet PO (08:14)
[2020-06-27] MEDS: metoprolol tartrate 25 mg Tablet 12.5 MG PO (08:14)
[2020-06-27] MEDS: famotidine 20 mg Tablet 40 MG PO ×2 (08:14→22:46)
[2020-06-27] MEDS: folic acid 1 mg Tablet PO (08:14)
[2020-06-27] MEDS: thiamine 100 mg Tablet PO (08:15)
--- NOTE | 2020-06-27 09:28 | P.PN_ITS ---
Documented by User: Lyn Meraz, [facility] 06/27/20 12:07 Subjective Subjective: Interval history: Jason is a 65 yo male with h/o bipolar disorder and depression that presented with visual and auditory hallucinations and confusion on June 20. Today he was calm and in an affable mood. He was not able to tell me his name, date, or where he was. At first he said June, then April, then May when I asked him the date. When I asked him where he was, he said [place] [address] He states he got 3 or 4 blood shots this morning and that his left arm hurts. He also stated that something is wrong with his eyes and wishes that he saw money. When I asked him why he was here, he said he knew that he needed to be here and was willing to talk it out. 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 I asked him if he knew Steph and he said I know of her. He kept looking out the window of his room after he responded to my questions. The nurse that was with him this morning said he has been confused and that the patient thinks she is his ex-. She also noted that he was aggressive last night but is calm this morning. Medications: Reviewed: Yes Medication Review Details: Active Medications Generic Name Dose Route Start Last Admin Trade Name Cristobal PRN Reason Stop Dose Admin Acetaminophen 650 mg 06/19/20 14:55 Acetaminophen 32 5 Mg Tablet PO Q4H PRN MILD PAIN Albuterol Sulfate 2 puff 06/19/20 16:06 Albuterol 8 Gm M di INHALATION Q4H PRN shortness of afshin th or wheezing Atorvastatin Calci um 20 mg 06/19/20 21:00 06/19/20 20:22 Atorvastatin 40 Mg Tablet PO 20 mg BEDTIME DESMOND Administration Benztropine Mesyla te 1 mg 06/19/20 14:55 Benztropine 1 Mg Tablet PO BID PRN Mild Extrapyramid al symptoms Camphor/Menthol/Ph enol 1 applic 06/19/20 14:55 Blistex Lip Oint 7 Gm Tube TOPICAL Q1H PRN DRYNESS Diphenhydramine HC l 50 mg 06/19/20 14:55 Diphenhydramine 50 Mg/Ml Sdv 1ml IM ONCE PRN Severe Extrapyram idal Symptoms Diphenhydramine HC l 50 mg 06/19/20 14:55 Diphenhydramine 50 Mg/Ml Sdv 1ml IM Q4H PRN Severe Aggression Famotidine 40 mg 06/19/20 21:00 06/20/20 08:55 Famotidine 20 Mg Tablet PO 40 mg Q12H DESMOND Administration Haloperidol 5 mg 06/19/20 14:55 Haloperidol 5 Mg Tablet PO Q4H PRN AGITATION Haloperidol Lactat e 5 mg 06/19/20 14:55 Haloperidol Inj 5 Mg/Ml Inj 1 Ml IM Q4H PRN Severe Aggression Hydralazine HCl 50 mg 06/19/20 21:00 06/20/20 08:54 Hydralazine 50 M g Tablet PO 50 mg Q12H DESMOND Administration Hydrochlorothiazid e 25 mg 06/20/20 09:00 06/20/20 08:55 Hydrochlorothiaz yojana 25 Mg Tablet PO 25 mg DAILY DESMOND Administration Hydroxyzine Pamoat e 50 mg 06/19/20 14:55 Hydroxyzine 25 M g Capsule PO Q6H PRN ANXIETY Isosorbide Mononit rate 30 mg 06/20/20 09:00 06/20/20 08:55 Isosorbide [place] itrate Er 30 Mg Ta blet PO 30 mg QAM DESMOND Administration Levothyroxine Sodi um 100 mcg 06/20/20 09:00 06/20/20 08:55 Levothyroxine 10 0 Mcg Tablet PO 100 mcg DAILY DESMOND Administration Lisinopril 20 mg 06/20/20 09:00 06/20/20 08:55 Lisinopril 20 Mg Tablet PO 20 mg DAILY DESMOND Administration Loperamide HCl 2 mg 06/19/20 14:55 Loperamide 2 Mg Capsule PO Q6H PRN DIARRHEA Lorazepam 2 mg 06/19/20 14:55 Lorazepam 2 Mg/M l Inj 1 Ml IM Q4H PRN Severe Aggression Meloxicam 15 mg 06/20/20 09:00 06/20/20 08:55 Meloxicam 7.5 Mg Tablet PO 15 mg DAILY DESMOND Administration Metoprolol Tartrat e 12.5 mg 06/19/20 18:00 06/20/20 08:55 Metoprolol Tartr ate 25 Mg Tablet PO 12.5 mg BID DESMOND Administration Nicotine 1 patch 06/19/20 14:55 Nicotine 21 Mg P atch TRANSDERMA DAILY PRN NICOTINE WITHDRAW AL Nicotine Polacrile x 2 mg 06/19/20 14:55 Nicotine 2 Mg Gu m BUCCAL Q2H PRN NICOTINE WITHDRAW AL Olanzapine 5 mg 06/19/20 14:55 Olanzapine 5 Mg Odt PO Q4H PRN Agitation/Psychos is Ondansetron HCl 4 mg 06/19/20 14:55 Ondansetron 4 Mg Tablet PO Q6H PRN NAUSEA AND VOMITI NG Trazodone HCl 50 mg 06/19/20 14:55 Trazodone 50 Mg Tablet PO BEDTIME PRN SLEEP No Known Allergies Allergy (Verified 06/19/20 11:35) Vitals/I&O/Wt Last Vital Signs Temp 98.0 F 06/27/20 08:00 Pulse 66 06/27/20 08:00 Resp 18 06/27/20 08:00 BP 152/94 06/27/20 08:00 Pulse Ox 94 06/27/20 08:00 06/26/20 06/27/20 06/27/20 22:59 06:59 14:59 Intake Total 1000 / 1050 120 / 120 Output Total 280 / 280 200 / 480 Balance 720 / 770 -200 / 570 120 / 120 Physical Exam Const: COMMON NORMALS: no acute distress EXAM LIMITATIONS: altered mental status GENERAL APPEARANCE: cooperative and comfortable ORIENTATION/CONSCIOUSNESS: Yes awake and Yes confused; not oriented to person, not oriented to place and not oriented to time HENMT: COMMON NORMALS: normocephalic and atraumatic HEAD & SCALP: normocephalic and atraumatic Eye: COMMON NORMALS: Equal, round and reactive pupils present, EOMs intact bilaterally, conjunctivae normal and no scleral icterus CONJUNCTIVA: Yes conjunctivae normal PUPIL: Yes Equal, round and reactive pupils present Neck/C-Spine: COMMON NORMALS: no JVD Resp: COMMON NORMALS: normal respiratory effort, No retractions, No use of accessory muscles and clear to auscultation bilaterally EFFORT & INSPECTION: Yes able to speak in complete sentences AUSCULTATION: clear to auscultation bilaterally Cardio: COMMON NORMALS: no JVD, regular rate, regular rhythm, S1 normal heart sound present, S2 normal heart sound present, No gallops present (Cardio), No clicks present (Cardio), No murmurs present (Cardio), No rub (Cardio) and Peripheral pulses 2+ throughout RATE: regular rate RHYTHM: regular rhythm HEART SOUNDS: S1 normal heart sound present and S2 normal heart sound present PERIPHERAL PULSES: Peripheral pulses 2+ throughout Neuro: SENSORIUM/ORIENTATION: No oriented to person, No oriented to place and No oriented to time Psych: COMMON NORMALS: cooperative, normal affect and speech normal; negative for mental status grossly normal and negative for Normal thought process present APPEARANCE: Yes grossly normal ATTITUDE: Yes calm ACTIVITY/MOTOR BEHAVIOR: Yes appropriate eye contact SPEECH: Yes normal speech MOOD & AFFECT: Yes euthymic mood THOUGHT PROCESS: abnormal, disor ganized and confused ATTENTION/CONCENTRATION: Yes attention grossly intact and Yes concentration grossly intact Data : 06/25/20 13:28 06/25/20 13:28 A&P Assessment and plan (1) AMS (altered mental status): Patient has been having fluctuating mental status changes since admission. Several modifications have been made to his psych medications, however none has consistently made a significant difference. On 06/24 exam noted to be confused, having purposeless movement, illegible words, not being able to sit up or walk, ambulating previosuly with a walker. This does appear to be a change in his mental status over previously. Concern for acute encephalopathy. Sepsis work-up performed, thus far with normal leukocytosis, negative pr ocalcitonin, CT chest abdomen and pelvis without any overt sources of infection such as pneumonia or intra-abdominal abscesses. Creatinine is improving from 2.1-1.2 with hydration. Blood culture remains negative thus far. Covid rapid antigen returned negative. CT head also without any acute stroke changes. Patient has been empirically started on ceftriaxone based on a positive UA, urine culture is pending. ABG without any hypoxia or hypercapnia. Patient mental status was improving yesterday with him being more awake and alert, able to have a simple conversation, overall has been cooperative; however he was noted to be agitated last night. He was unable to do a LP yesterday because he was too agitated. Status: Acute (2) MELVINA (acute kidney injury): cr at 2.2 from 0.7 upon admission , improving now to 1.2 with hydration no evidence of urinary obtsruction on imaging may be secondary to poor po intake Status: Acute Additional A&P Information (1) Hallucinations: (2) Coronary artery disease: (3) History of tobacco abuse: (4) GERD with esophagitis: (5) Mixed hyperlipidemia: (6) Fibromyalgia: (7) Hypertension: (8) Adult onset hypothyroidism: (9) COPD with chronic bronchitis and emphysema: (10) Nicotine dependence, cigarettes, uncomplicated: (11) Borderline personality disorder: (12) Major depressive disorder, recurrent severe without psychotic features: (13) Psychosis: (14) Intellectual disability: (15) delirium of unknown etiology This is a 65-year-old white male with a long history of mental health issues but no consistent history of psychotic symptoms, with family concerns for psychosis and him endorsing strange phenomena in his home with an openness to a trial of an antipsychotic, presents today with continuing deterioration and appearing to be in acute delirium. 1. Continue current medication. 2. We will continue to follow. 3. Continue exploration of geriatric psychiatric bed after medical clearance to consider transfer to a geriatric psychiatric unit for more specialized treatm ent. Coding Level of Care Code Acute Aerodynamics Engineer for Chg Fwd Exam Detailed Diagnoses AMS (altered mental status) R41.82 MELVINA (acute kidney injury) N17.9 Documented by User: Safia Bello MD 06/27/20 16:33 Data : 06/25/20 13:28 06/25/20 13:28 A&P Additional A&P Information seen and examined with medical student Patient is more alert and awake today, the continues to be confused and disoriented. Overall work-up for organic brain causes and thus far obtained unremarkable with CT head normal, no overt signs of sepsis, less likely to be encephalopathy, has been on a trial of antibiotics without significant change in symptoms. Antipsychotics have been placed on hold, again without much significant difference. This does leave the possibility of chronic meningitis syndromes on the differential. Cryptococcal antigen and hepatitis serologies were ordered, however blood was unable to be obtained and therefore they remain pending. RPR returned negative, as did HIV serology. Possibility of Creutzfeldt Manuel disease and/or Lewy body dementia remain. Unable to get lumbar puncture as patient did not cooperate with the exam either and fluoroscopy or at bedside. less likely to be CMV,HHV,[employer]OV[employer] P[employer]ER HAT MENDER toxoplasmosis, JCV encephalopathy as patient not otherwise immunocompromised. Discussed the case briefly with neurology Dr. Nye, patient will likely need outpatient MRIs and EEG. Attestations Medical Necessity Statement*: fluctuationg mental status, awaiting placement at [facility] Coding Level of Care Code Acute Aerodynamics Engineer for Chg Fwd Exam Detailed Diagnoses AMS (altered mental status) R41.82 MELVINA (acute kidney injury) N17.9
[2020-06-27 11:37] VITALS: BP 126/79; PULSE 68; RESP 18; TEMP 36.8; O2SAT 92
[2020-06-27] MEDS: OLANZapine 10 mg VIAL 5 MG IM (14:22)
[2020-06-27 15:57] VITALS: BP 157/94; PULSE 65; RESP 18; TEMP 36.8; O2SAT 94
[2020-06-27] MEDS: cefTRIAXone 1,000 MG in sodium chloride 0.9% (plus) 50 ML 100 MG IV (18:53)
--- NOTE | 2020-06-27 19:05 | P.PN_ITS ---
Subjective NPU Subjective: Interval history: Jason presents today essentially unchanged from yesterday. I been advised that he has been up and walking and seeming to have more stability that he had the day was transferred. However this seems to be a waxing and waning aspect to his presentation. At times having clear articulation and at times having a thicker tongue. They've been attempting to get an LP the last day or so. He denies any new issues. Mental Status Exam MSE Comments: This is an obese white male in the hospital scrubs with limited grooming and adequate eye contact. With a long lópez reminiscent of the [employer]. No abnormal movements and he was not seen walking to determine whether his gait had improved. Cooperative with exam in no acute distress. Speech was more normal volume slightly increased rate but but still had more difficulty with articulation than at admission with an almost fullness of his tongue like he cannot get it out of the way, with significant dysarthria. Mood was reported as okay, affect appeared congruent. Thought process more organized. Thought content: He denied suicidal or homicidal ideation, there were no delusions reported or noted, he denied any auditory or visual hallucinations. Attention and concentration were improved and memory was hard to determine based on difficulty with understanding his words but none were formally tested. He was alert and oriented times person and place. Insight and judgment are improving and impulse control is improving, intellectual ability is likely impaired. Vitals/I&O/Wt Last Vital Signs Temp 98.0 F 06/27/20 19:57 Pulse 66 06/27/20 19:57 Resp 18 06/27/20 19:57 BP 142/91 06/27/20 19:57 Pulse Ox 93 06/27/20 19:57 06/27/20 14:59 Intake Total 360 / 360 Output Total Balance 360 / 360 Data NPU : 06/25/20 13:28 06/25/20 13:28 A&P Additional A&P Information (1) Hallucinations: (2) Coronary artery disease: (3) History of tobacco abuse: (4) GERD with esophagitis: (5) Mixed hyperlipidemia: (6) Fibromyalgia: (7) Hypertension: (8) Adult onset hypothyroidism: (9) COPD with chronic bronchitis and emphysema: (10) Nicotine dependence, cigarettes, uncomplicated: (11) Borderline personality disorder: (12) Major depressive disorder, recurrent severe without psychotic features: (13) Psychosis: (14) Intellectual disability: (15) delirium of unknown etiology This is a 65-year-old white male with a long history of mental health issues but no consistent history of psychotic symptoms, with family concerns for psychosis and him endorsing strange phenomena in his home with an openness to a trial of an antipsychotic, presents today with continuing deterioration and appearing to be in acute delirium. 1. Continue current medication. 2. We will continue to follow. 3. Continue exploration of geriatric psychiatric bed after medical clearance to consider transfer to a geriatric psychiatric unit for more specialized treatment. 4. Agree with neurology involvement as we initially queried the idea of temporal lobe seizures another possibly nonstroke neurological concerns. Involuntary Hold Information 96 Hour Hold: 96 Hour Involuntary Admission: No Attestations NPU Medical Necessity Statement*: N/A. Please see primary team note for medical necessity. Coding Level of Care Code Acute Director Of Nursing for Ofelia Rhodes
[2020-06-27 19:57] VITALS: BP 142/91; PULSE 66; RESP 18; TEMP 36.7; O2SAT 93
[2020-06-27] MEDS: atorvastatin 40 mg Tablet 20 MG PO (22:45)
[2020-06-28] VITALS (8 sets, daily range): BP systolic 96–162; BP diastolic 62–102; PULSE 61–74; RESP 18–20; TEMP 36.4–37.3; O2SAT 93–97
[2020-06-28] MEDS: hyDRALAzine 50 mg Tablet PO ×2 (02:00→08:15)
[2020-06-28] MEDS: lisinopril 20 mg Tablet PO ×2 (02:00→08:15)
[2020-06-28] MEDS: thiamine 100 mg Tablet PO (08:14)
[2020-06-28] MEDS: hydroCHLOROthiazide 25 mg Tablet PO (08:15)
[2020-06-28] MEDS: cyanocobalamin 1,000 mcg Tablet 1000 MCG PO (08:15)
[2020-06-28] MEDS: metoprolol tartrate 25 mg Tablet 12.5 MG PO (08:15)
[2020-06-28] MEDS: levothyroxine 100 mcg Tablet PO (08:15)
[2020-06-28] MEDS: folic acid 1 mg Tablet PO (08:15)
[2020-06-28] MEDS: lithium carbonate 300 mg Capsule PO (08:15)
[2020-06-28] MEDS: isosorbide mononitrate ER 30 mg Tablet PO (08:15)
--- NOTE | 2020-06-28 09:30 | PM.PN ---
Subjective Subjective: Interval history: Jason is a 65 yo male with h/o bipolar disorder and depression that presented on June 19 with visual and auditory hallucinations and confusion. Today he is calm with a pleasant affect. He wasn't able to tell me his name, told me today is Wednesday, and that he is in [place]. He said that he is feeling okay today. He told me he was leaving at 10 am today to work on his car. Medications: Reviewed: Yes Medication Review Details: Active Medications Generic Name Dose Route Start Last Admin Trade Name Freq PRN Reason Stop Dose Admin Acetaminophen 650 mg 06/19/20 14:55 Acetaminophen 32 5 Mg Tablet PO Q4H PRN MILD PAIN Albuterol Sulfate 2 puff 06/19/20 16:06 Albuterol 8 Gm M di INHALATION Q4H PRN shortness of afshin th or wheezing Atorvastatin Calci um 20 mg 06/19/20 21:00 06/19/20 20:22 Atorvastatin 40 Mg Tablet PO 20 mg BEDTIME DESMOND Administration Benztropine Mesyla te 1 mg 06/19/20 14:55 Benztropine 1 Mg Tablet PO BID PRN Mild Extrapyramid al symptoms Camphor/Menthol/Ph enol 1 applic 06/19/20 14:55 Blistex Lip Oint 7 Gm Tube TOPICAL Q1H PRN DRYNESS Diphenhydramine HC l 50 mg 06/19/20 14:55 Diphenhydramine 50 Mg/Ml Sdv 1ml IM ONCE PRN Severe Extrapyram idal Symptoms Diphenhydramine HC l 50 mg 06/19/20 14:55 Diphenhydramine 50 Mg/Ml Sdv 1ml IM Q4H PRN Severe Aggression Famotidine 40 mg 06/19/20 21:00 06/20/20 08:55 Famotidine 20 Mg Tablet PO 40 mg Q12H DESMOND Administration Haloperidol 5 mg 06/19/20 14:55 Haloperidol 5 Mg Tablet PO Q4H PRN AGITATION Haloperidol Lactat e 5 mg 06/19/20 14:55 Haloperidol Inj 5 Mg/Ml Inj 1 Ml IM Q4H PRN Severe Aggression Hydralazine HCl 50 mg 06/19/20 21:00 06/20/20 08:54 Hydralazine 50 M g Tablet PO 50 mg Q12H DESMOND Administration Hydrochlorothiazid e 25 mg 06/20/20 09:00 06/20/20 08:55 Hydrochlorothiaz yojana 25 Mg Tablet PO 25 mg DAILY DESMOND Administration Hydroxyzine Pamoat e 50 mg 06/19/20 14:55 Hydroxyzine 25 M g Capsule PO Q6H PRN ANXIETY Isosorbide Mononit rate 30 mg 06/20/20 09:00 06/20/20 08:55 Isosorbide [place] itrate Er 30 Mg Ta blet PO 30 mg QAM DESMOND Administration Levothyroxine Sodi um 100 mcg 06/20/20 09:00 06/20/20 08:55 Levothyroxine 10 0 Mcg Tablet PO 100 mcg DAILY DESMOND Administration Lisinopril 20 mg 06/20/20 09:00 06/20/20 08:55 Lisinopril 20 Mg Tablet PO 20 mg DAILY DESMOND Administration Loperamide HCl 2 mg 06/19/20 14:55 Loperamide 2 Mg Capsule PO Q6H PRN DIARRHEA Lorazepam 2 mg 06/19/20 14:55 Lorazepam 2 Mg/M l Inj 1 Ml IM Q4H PRN Severe Aggression Meloxicam 15 mg 06/20/20 09:00 06/20/20 08:55 Meloxicam 7.5 Mg Tablet PO 15 mg DAILY DESMOND Administration Metoprolol Tartrat e 12.5 mg 06/19/20 18:00 06/20/20 08:55 Metoprolol Tartr ate 25 Mg Tablet PO 12.5 mg BID DESMOND Administration Nicotine 1 patch 06/19/20 14:55 Nicotine 21 Mg P atch TRANSDERMA DAILY PRN NICOTINE WITHDRAW AL Nicotine Polacrile x 2 mg 06/19/20 14:55 Nicotine 2 Mg Gu m BUCCAL Q2H PRN NICOTINE WITHDRAW AL Olanzapine 5 mg 06/19/20 14:55 Olanzapine 5 Mg Odt PO Q4H PRN Agitation/Psychos is Ondansetron HCl 4 mg 06/19/20 14:55 Ondansetron 4 Mg Tablet PO Q6H PRN NAUSEA AND VOMITI NG Trazodone HCl 50 mg 06/19/20 14:55 Trazodone 50 Mg Tablet PO BEDTIME PRN SLEEP No Known Allergies Allergy (Verified 06/19/20 11:35) Vitals/I&O/Wt Last Vital Signs Temp 97.5 F L 06/28/20 07:13 Pulse 68 06/28/20 07:13 Resp 18 06/28/20 07:13 BP 127/73 06/28/20 07:13 Pulse Ox 95 06/28/20 07:13 06/27/20 06/28/20 06/28/20 22:59 06:59 14:59 Intake Total 240 / 600 240 / 240 Output Total 225 / 225 Balance 240 / 600 -225 / 375 240 / 240 Physical Exam Const: COMMON NORMALS: no acute distress EXAM LIMITATIONS: altered mental status GENERAL APPEARANCE: cooperative and comfortable ORIENTATION/CONSCIOUSNESS: Yes awake and Yes confused; not oriented to person, not oriented to place and not oriented to time HENMT: COMMON NORMALS: normocephalic and atraumatic HEAD & SCALP: normocephalic and atraumatic Eye: COMMON NORMALS: Equal, round and reactive pupils present, EOMs intact bilaterally, conjunctivae normal and no scleral icterus CONJUNCTIVA: Yes conjunctivae normal PUPIL: Yes Equal, round and reactive pupils present Neck/C-Spine: COMMON NORMALS: no JVD Resp: COMMON NORMALS: normal respiratory effort, No retractions, No use of accessory muscles and clear to auscultation bilaterally EFFORT & INSPECTION: Yes able to speak in complete sentences AUSCULTATION: clear to auscultation bilaterally Cardio: COMMON NORMALS: no JVD, regular rate, regular rhythm, S1 normal heart sound present, S2 normal heart sound present, No gallops present (Cardio), No clicks present (Cardio), No murmurs present (Cardio), No rub (Cardio) and Peripheral pulses 2+ throughout RATE: regular rate RHYTHM: regular rhythm HEART SOUNDS: S1 normal heart sound present and S2 normal heart sound present PERIPHERAL PULSES: Peripheral pulses 2+ throughout Neuro: SENSORIUM/ORIENTATION: No oriented to person, No oriented to place and No oriented to time Psych: COMMON NORMALS: cooperative, normal affect and speech normal; negative for mental status grossly normal and negative for Normal thought process present APPEARANCE: Yes grossly normal ATTITUDE: Yes calm ACTIVITY/MOTOR BEHAVIOR: Yes appropriate eye contact SPEECH: Yes normal speech MOOD & AFFECT: Yes euthymic mood THOUGHT PROCESS: abnormal, disorganized and confused ATTENTION/CONCENTRATION: Yes attention grossly intact and Yes concentration grossly intact Data : 07/02/20 04:38 07/05/20 04:41 A&P Assessment and plan (1) AMS (altered mental status): Pt is aware of place only, which is an improvement from yesterday. Work-up has been unremarkable thus far, so he will be referred to outpatient neurology. Status: Resolved (2) MELVINA (acute kidney injury): Resolved. Status: Resolved Additional A&P Information seen and examined with medical student Patient is more alert and awake today, the continues to be confused and disoriented. Overall work-up for organic brain causes and thus far obtained unremarkable with CT head normal, no overt signs of sepsis, less likely to be encephalopathy, has been on a trial of antibiotics without significant change in symptoms. Antipsychotics have been placed on hold, again without much significant difference. This does leave the possibility of chronic meningitis syndromes on the differential. Cryptococcal antigen and hepatitis serologies were ordered, however blood was unable to be obtained and therefore they remain pending. RPR returned negative, as did HIV serology. Possibility of Creutzfeldt Manuel disease and/or Lewy body dementia remain. Unable to get lumbar puncture as patient did not cooperate with the exam either and fluoroscopy or at bedside. less likely to be CMV,HHV,CERTIFIED DRIVER EXAMINER toxoplasmosis, JCV encephalopathy as patient not otherwise immunocompromised. Discussed the case briefly with neurology Dr. Nye, patient will likely need outpatient MRIs and EEG. Attestations Medical Necessity Statement*: Pt will need continued observation for altered mental status. Coding Level of Care Code Acute Sql Server Architect for [facility] Fwd Exam Detailed Diagnoses AMS (altered mental status) R41.82 MELVINA (acute kidney injury) N17.9
[2020-06-28] MEDS: LORazepam 2 mg/mL INJ 1 mL IVP ×3 (10:45→19:24)
[2020-06-28] MEDS: famotidine 20 mg Tablet 40 MG PO (10:47)
[2020-06-28 10:53] LABS: Basophils % 0.5 %; Eosinophils # 0.3 10^3/uL (0.0-0.8); Eosinophils % 4.8 %; Hematocrit 41.4 % (42.0-52.0); Hemoglobin 13.4 g/dL (11.7-16.6); Lymphocytes # 0.8 10^3/uL (0.8-4.8); Lymphocytes % 13.7 %; Mean Corpuscular HGB Conc 32.4 g/dL (30.0-36.0); Mean Corpuscular Hemoglobin 30.8 pg (28.0-34.0); Mean Corpuscular Volume 95.2 fL (80-94); Mean Platelet Volume 10.6 fL (7.4-10.4); Monocytes # 0.7 10^3/uL (0.2-0.9); Monocytes % 11.6 %; Neutrophils # 3.99 10^3/uL (1.8-7.7); Neutrophils % 69.1 %; Nucleated Red Blood Cells % 0 %; Platelet Count 277 10^3/cmm (130-400); Red Blood Count 4.35 10^6/uL (4.1-5.3); Red Cell Distribution Width 11.9 % (12.1-15.1); White Blood Count 5.8 10^3/uL (4.0-10.0)
--- NOTE | 2020-06-28 10:58 | PC.NURSE ---
pt off unit to go to MRI test
[2020-06-28 11:14] LABS: Alanine Aminotransferase 34 U/L (0-41); Albumin Level 3.6 g/dL (3.5-5.2); Alkaline Phosphatase 83 IU/L (40-130); Anion Gap 8.2 (5-19); Aspartate Amino Transferase 25 U/L (0-40); Blood Urea Nitrogen 14 mg/dL (8-23); Calcium 10.3 mg/dL (8.5-10.5); Carbon Dioxide 29 mmol/L (22-29); Chloride 107 mmol/L (98-107); Globulin 3.4 g/dL (1.3-4.6); Glomerular Filtration Rate 97.3 mL/min (90-130); Glucose 101 mg/dL (65-115); Osmolality Calculated 293 mOsm/kg (285-295); Potassium 3.2 mmol/L (3.5-5.1); Sodium 141 mmol/L (136-145); Total Bilirubin 0.9 mg/dL (0.15-1.2)
--- NOTE | 2020-06-28 12:19 | PC.NURSE ---
pt back to unit from MRI
--- NOTE | 2020-06-28 12:59 | PM.PN ---
Subjective Subjective: Interval history: continues to be confused, disoriented, spoke to [place] neurology consult line this morning, recommended MRI and LP, to be performed later today with sedation Medications: Reviewed: Yes Vitals/I&O/Wt Last Vital Signs Temp 98.0 F 06/28/20 12:00 Pulse 67 06/28/20 12:00 Resp 18 06/28/20 12:00 BP 113/71 06/28/20 12:00 Pulse Ox 94 06/28/20 12:00 06/27/20 06/28/20 06/28/20 22:59 06:59 14:59 Intake Total 290 / 650 300 / 300 Output Total 225 / 225 250 / 250 Balance 290 / 650 -225 / 425 50 / 50 Physical Exam Narrative: EXAM NARRATIVE: GEN: Awake, alert , disoriented CVS: S1S2 N RS: CTA B/L Abd: Soft, nt/nd , bs+ [employer]: no focal neuro deficits , ataxic gait Data : 06/28/20 10:45 06/28/20 10:45 Micro: Microbiology 06/28/20 10:45 Cryptococcal Antigen - Final Blood A&P Assessment and plan (1) AMS (altered mental status): Overall work-up for organic brain causes and thus far obtained unremarkable with CT head normal, no overt signs of sepsis, less likely to be encephalopathy, has been on a trial of antibiotics without significant change in symptoms. Antipsychotics have been placed on hold, again without much significant difference. This does leave the possibility of chronic meningitis syndromes on the differential. Cryptococcal antigen and hepatitis serologies negative. RPR returned negative, as did HIV serology. Possibility of Creutzfeldt Manuel disease and/or Lewy body dementia remain. Unable to get lumbar puncture thus far as patient did not cooperate with the exam either and fluoroscopy or at bedside. less likely to be CMV,HHV,L[employer] INSURANCE SALES toxoplasmosis, JCV encephalopathy as patient not otherwise immunocompromised. Discussed the case today with [facility] neurology consult line at the request of patient's daughter , they recommended MRI and LP as the next steps. LP to be reattempeted later today by Dr. Narvaez. MRI later this evening with sedation. Status: Acute (2) MELVINA (acute kidney injury): cr at 2.2 from 0.7 upon admission , improving now to 1.2 with hydration no evidence of urinary obtsruction on imaging may be secondary to poor po intake , now resolved Status: Acute Attestations Medical Necessity Statement*: MRI and LP with sedation today Coding Level of Care Code Acute Clinic Physician for Chg Fwd Diagnoses AMS (altered mental status) R41.82 MELVINA (acute kidney injury) N17.9
[2020-06-28 13:26] LABS: Hepatitis A Antibody IgM Non-Reactive (Nonreactive); Hepatitis B Core AB, Total Non-Reactive (Nonreactive); Hepatitis B Surface AB 6.1 (0-8.5); Hepatitis B Surface Antigen Non-Reactive (Nonreactive); Hepatitis C Virus Antibody Non-Reactive (Nonreactive)
[2020-06-28] MEDS: OLANZapine 10 mg VIAL 5 MG IM (14:35)
--- NOTE | 2020-06-28 15:00 | PC.NURSE ---
1458: Time out performed for lumbar puncture with Dr. Narvaez at 1458. All staff presented stopped and participated, including: Dr. Gregory Narvaez, Dg Blanc, RN; Anjelica Ardon, RN; Rosanna Reed, RN; Duran Sousa LPN; Umesh Driver CNA; Duran Carter CNA; Tenzin Montague, PSA. Patient has had a history of becoming disoriented, so patient was pre-medicated with 50 mcg of Fentanyl as well as 2 mg of Ativan for comfort and for safety of the patient during the procedure. Patient was placed in left side-lying position with soft restraints applied to RLE and RUE per Dr. Narvaez's order to maintain patient safety during the procedure. The site was identified and marked by Dr. Narvaez and procedure initated at 1500. At 1504, it was identified by Dr. Narvaez that the patient would need to be slightly repositioned for a successful lumbar puncture. Dr. Narvaez successfully accessed the spinal canal and obtained 4 tubes of spinal fluid at 1516. These were labeled immediately by identifying patient from [facility] and comparing to the EMR. Needle was removed and pressure dressing applied. Restraints were removed at 1518. Patient tolerated procedure well and is resting quietly with call light in reach and PSA at bedside for increased safety.
[2020-06-28] MEDS: fentaNYL 50 mcg/mL INJ 2mL IVP (15:24)
--- NOTE | 2020-06-28 16:04 | DCPLANNER ---
IMM not completed due to pt unable to comprehend.
--- NOTE | 2020-06-28 16:14 | P.PCN_ITS ---
Procedure/Consent Time out: Time Out Performed: Yes Consent: Consent for Procedure: Consent obtained from other (indicate) (Daughter) Procedure Narrative: Name of the procedure: Lumbar puncture Indication: Suspected meningitis Medications: 1% lidocaine 5 mL Intravenous medications: Fentanyl 50 mcg, Ativan 2 mg Description: The patient was placed in left lateral position and his position was optimized. Using the iliac crests as a landmark, space between L3 and L4 vertebrae were identified. The site was marked. The site was cleaned using sterile technique. Sterile technique was followed throughout the procedure. The skin, subcutaneous tissue and deeper tissue were anesthetized with 1% lidocaine. A lumbar puncture needle was advanced in between the spinous processes of L2 and L3 vertebrae. The needle was advanced until a pop and loss of resistance was felt. CSF was noted to be draining through the spinal needle. The opening pressure was 16 cm of water. CSF was clear. The procedure was n onbloody. A total of 12 mL of CSF was drained. Postdrainage the closing pressure was 9 cm of water. Next CSF studies will be sent as per the primary team. Complications: No immediate complication was noted. The plan is to hold off on subcu heparin for 24 hours post procedure. Acute Procedures Epistaxis Control: Time out performed: Yes
[2020-06-28] MEDS: nystatin powder 15 gm Btl 1 APPLIC TOPICAL (16:31)
--- NOTE | 2020-06-28 17:07 | PC.PT ---
PT note; patient has been unable to participate meaningfully with physical therapy ?6 days, due to altered mental status, and is now being discharged from physical therapy, until able to participate meaningfully with improvement in mental status, and we can resume physical therapy at that time.
--- NOTE | 2020-06-28 18:33 | P.PN_ITS ---
Subjective NPU Subjective: Interval history: Jason presents today fairly unarousable and so he was allowed to rest. According to the sitter he has been resting peacefully/out of it since his procedure a couple hours ago. He does not appear to be in any distress or having any concerns, and we will await the results. Mental Status Exam MSE Comments: This is an obese white male in the hospital scrubs with limited grooming and no eye contact. With a long lópez reminiscent of the [employer]. No abnormal movements and he was not seen walking to determine whether his gait had improved, sleeping peacefully. Vitals/I&O/Wt Last Vital Signs Temp 98.6 F 06/28/20 15:32 Pulse 61 06/28/20 15:32 Resp 18 06/28/20 15:32 BP 96/62 06/28/20 15:32 Pulse Ox 93 06/28/20 15:32 06/28/20 14:59 Intake Total 300 / 300 Output Total 250 / 250 Balance 50 / 50 Data NPU : 06/28/20 10:45 06/28/20 10:45 Micro: Microbiology 06/28/20 15:16 Bacterial Antigens - Final Cerebrospinal Fluid 06/23/20 16:02 Blood Culture - Final Blood NO GROWTH AFTER 5 DAYS 06/23/20 16:07 Blood Culture - Final Blood NO GROWTH AFTER 5 DAYS 06/28/20 10:45 Cryptococcal Antigen - Final Blood Microbiology 06/28/20 15:16 Cerebrospinal Fluid Bacterial Antigens - Final 06/23/20 16:02 Blood Blood Culture - Final NO GROWTH AFTER 5 DAYS 06/23/20 16:07 Blood Blood Culture - Final NO GROWTH AFTER 5 DAYS 06/28/20 10:45 Blood Cryptococcal Antigen - Final A&P Additional A&P Information (1) Hallucinations: (2) Coronary artery disease: (3) History of tobacco abuse: (4) GERD with esophagitis: (5) Mixed hyperlipidemia: (6) Fibromyalgia: (7) Hypertension: (8) Adult onset hypothyroidism: (9) COPD with chronic bronchitis and emphysema: (10) Nicotine dependence, cigarettes, uncomplicated: (11) Borderline personality disorder: (12) Major depressive disorder, recurrent severe without psychotic features: (13) Psychosis: (14) Intellectual disability: (15) delirium of unknown etiology This is a 65-year-old white male with a long history of mental health issues but no consistent history of psychotic symptoms, with family concerns for psychosis and him endorsing strange phenomena in his home with an openness to a trial of a n antipsychotic, presents today with continuing deterioration and appearing to be in acute delirium. 1. Continue current medication. 2. We will continue to follow. 3. Continue exploration of geriatric psychiatric bed after medical clearance to consider transfer to a geriatric psychiatric unit for more specialized treatment. 4. Agree with neurology involvement as we initially queried the idea of temporal lobe seizures and other possibly nonstroke neurological concerns. We will await the results and interpretation of the LP Involuntary Hold Information 96 Hour Hold: 96 Hour Involuntary Admission: No Attestations NPU Medical Necessity Statement*: N/A. Please see primary team note for medical necessity. 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
--- NOTE | 2020-06-28 19:12 | PC.NURSE ---
went to mri to attempt to calm pt. administer 2mg of lorazepam iv push.
[2020-06-28 19:32] LABS: Glucose CSF 65 mg/dL (40-70); Total Protein CSF 39 mg/dL (15-45)
[2020-06-28 19:39] LABS: Mononuclear WBC CSF % 0 % (50-90); Polynuclear Cells ,CSF # 0.001 10^3/uL (0-10); Polynuclear WBC CSF % 100 % (0-10); Red Blood Cell CSF 0 10^3/uL (0-0); White Blood Cell CSF 1 /uL (0-5)
[2020-06-28 19:40] LABS: Appearance CSF CLEAR (CLEAR); Color CSF COLORLESS (COLORLESS); Pathology Referral Yes
--- NOTE | 2020-06-28 22:28 | PC.NURSE ---
Pt would not wake up enough to take medications safely.
[2020-06-29] VITALS (10 sets, daily range): BP systolic 105–138; BP diastolic 70–92; PULSE 63–81; RESP 18–24; TEMP 36.2–37; O2SAT 91–95
[2020-06-29] MEDS: ipratropium-albuterol 3 mL Neb INHALATION ×2 (11:25→21:08)
[2020-06-29] MEDS: hydroCHLOROthiazide 25 mg Tablet PO (11:46)
[2020-06-29] MEDS: hyDRALAzine 50 mg Tablet PO (11:46)
[2020-06-29] MEDS: famotidine 20 mg Tablet 40 MG PO (11:46)
[2020-06-29] MEDS: cyanocobalamin 1,000 mcg Tablet 1000 MCG PO (11:46)
[2020-06-29] MEDS: metoprolol tartrate 25 mg Tablet 12.5 MG PO ×2 (11:46→17:21)
[2020-06-29] MEDS: thiamine 100 mg Tablet PO (11:46)
[2020-06-29] MEDS: isosorbide mononitrate ER 30 mg Tablet PO (11:47)
[2020-06-29] MEDS: lithium carbonate 300 mg Capsule PO ×2 (11:47→17:21)
[2020-06-29] MEDS: folic acid 1 mg Tablet PO ×2 (11:47→17:21)
[2020-06-29] MEDS: nystatin powder 15 gm Btl 1 APPLIC TOPICAL ×2 (11:47→23:00)
[2020-06-29] MEDS: levothyroxine 100 mcg Tablet PO (11:47)
[2020-06-29] MEDS: lisinopril 20 mg Tablet PO (11:47)
--- NOTE | 2020-06-29 14:30 | P.PN_ITS ---
Subjective Subjective: Interval history: Lumbar puncture was able to be performed yesterday after being given sedation with fentanyl. CSF analysis shows 1 WBC, CSF glucose 65, total protein 39 which are within normal range. Cryptococcal antigen is negative. Bacterial antigen will panel negative. Gram stain without any organisms. MRI was unable to be completed a second time also due to patient agitation and not staying in the machine. Medications: Reviewed: Yes Vitals/I&O/Wt Last Vital Signs Temp 97.4 F L 06/29/20 11:55 Pulse 75 06/29/20 11:55 Resp 18 06/29/20 11:55 BP 138/92 06/29/20 11:55 Pulse Ox 93 06/29/20 11:55 06/28/20 06/29/20 06/29/20 22:59 06:59 14:59 Intake Total 240 / 240 Output Total 300 / 300 Balance -60 / -60 Physical Exam Narrative: EXAM NARRATIVE: GEN: Awake, alert, disoriented, laying in bed in no acute distress, states he would like to go home CVS: S1S2 N RS: CTA B/L Abd: Soft, nt/nd , bs+ NUCLEAR MEDICINE PHYSICIAN: no focal neuro deficits Data : 06/28/20 10:45 06/28/20 10:45 Micro: Microbiology 06/28/20 15:16 Cryptococcal Antigen - Final Cerebrospinal Fluid 06/28/20 15:16 Gram Stain - Final Cerebrospinal Fluid 06/28/20 15:16 Bacterial Antigens - Final Cerebrospinal Fluid 06/23/20 16:02 Blood Culture - Final Blood NO GROWTH AFTER 5 DAYS 06/23/20 16:07 Blood Culture - Final Blood NO GROWTH AFTER 5 DAYS 06/28/20 10:45 Cryptococcal Antigen - Final Blood A&P Assessment and plan (1) AMS (altered mental status): patient initailly admnitted to NPU on 06/19 due to concerns for acute psychosis. However in spite of titration of medications, his mental status continued to worsen and on 08/14 he was noted to be unresponsive. Also had new MELVINA, which has since resolved. Due to concern for acute delirium vs metabolic encephalopathy from medical/neurological causes, he was transferred over to medicine. Thus far medical work up has remained unrevaling as to the cause of hs rapis cognitive decline, hallucinations and ataxia over a period of last 3-4 months. -CT head x2 with chronic microvascular changes, no acute CVA identified. Attempted to obtain MRI x2, however patient did not cooperate in spite of sedation and anxiolytics and therefore this study has been unable to be completed. -No overt signs of sepsis, CT CAP without any infectious sources, UA +, emprically treated with Ceftriaxone x 5 days with no change in mentation. Blood cx remains negative to date. negative procalcitonin. -HAd MELVINA, with peak cr at 2, normalized quickly with iv hydration, attributed likely to dehydration from poor po intake and NSAIDs and lisinorpil which are now on hold - Newly introduced antipsychotics have been placed on hold, again without much significant difference. [place] level mildly elevated, dose titrated down without change - LP not consistent with meningitis with normal glu, protein and cell count 1, negative gram stain, negative cryptococcal antigen. Oilogoclonal bands and IgG index pending. -negative HIV, syphilis and hepatitis screen -less likely to be CMV,HHV,NUCLEAR MEDICINE PHYSICIAN toxoplasmosis, JCV encephalitis as patient not otherwise immunocompromised -ESR 21, normal CRP, less likely to be vasculitic process withotu other signs of organ involevement -mild low vit b1 level raised concern for Wrnicke's , has been on supplementation -low folate and b12 levels, has been on adequate supplementation without any improvement -TSH normal at 3.04,FT4 nromal at 1.3, hba1c 4.7 -Ammonia normal at 23, LFTs within range -negative covid 19 ag -no hypoxia or hypercapnea on ABG - Possibility of Creutzfeldt Manuel disease and/or Lewy body dementia cannot be completely excluded Discussed the case briefly with Dr. Nye and also with [facility] neurology consult line at the request of patient's daughter , w/up has been extensive thus far, however will need MRI and EEG for further evaluation, which may be completed as outpatient. There does not appear to be an underlying cause amenable to acute intervention at this time. We will make arrangements to see Dr. Nye as outapatient in July 2019. Status: Acute (2) MELVINA (acute kidney injury): now resolved with hydration Status: Acute Additional A&P Information #h/o hyperlipidemia:: continue statin #h/o HTN: continue metoprolol, resume imdur, stopped lisinopril-HCTZ for MELVINA, can now resume lisinopril at 10mg qd and monitor renal function. Stopped hydralazine with resuming imdur. #h/oabnormal stress test : likely has underlying CAD, stress test from 02/2020 had shown mall in size, moderate intensity, partially reversible perfusion defect in basal inferolateral and mid inferolateral fried. This correlates with left circumflex artery territory. However given partial reversibility and presence of artifact, clinical correlation is required. Echo without RWMA, 55- 60% EF, normal systolic function, gr 1 diatsolic function. #Add aspirin 81mg po qd to his medications. #COPD: not currently exacerbated, continue duonebs Dispo: radha/psych placement. patient lives alone. Daughter and ex help. 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
[2020-06-29] MEDS: famotidine 20 mg Tablet PO (15:04)
[2020-06-29] MEDS: acetaminophen 325 mg Tablet 650 MG PO (15:04)
--- NOTE | 2020-06-29 15:51 | PM.NPN ---
Subjective NPU Subjective: Interval history: Jason presents today showing improvement and being able to be understood again. His daughter presented with him acknowledging that he was moving back towards how he is dysarthria that is present is new. We discussed working with the inpatient team for likely transfer to a geriatric facility that might be better equipped to deal with his specific needs given his constellation of symptoms. He endorsed wanting to discharge but clearly is not near back to baseline. We discussed medication and certainly have some concerns that some of the symptoms could have been related to the initiation of Invega. So we will hold starting a new medication at this time and will consider a medication for EPS possibly. Mental Status Exam MSE Comments: This is an obese white male in the hospital scrubs with limited grooming and adequate eye contact. With a long lópez reminiscent of the [employer]. No abnormal movements and he was not seen walking to determine whether his gait had improved. Cooperative with exam in no acute distress. Speech was more normal volume slightly increased rate but but still had more difficulty with articulation than at admission with an almost fullness of his tongue like he cannot get it out of the way, with significant dysarthria. Mood was reported as a little better, affect appeared congruent. Thought process more organized. Thought content: He denied suicidal or homicidal ideation, there were no delusions reported or noted, he denied any auditory or visual hallucinations. Attention and concentration were improved and memory was hard to determine based on difficulty with understanding his words but none were formally tested. He was alert and oriented times person and place. Insight and judgment are improving and impulse control is improving, intellectual ability is likely impaired. Vitals/I&O/Wt Last Vital Signs Temp 98.4 F 06/29/20 15:37 Pulse 64 06/29/20 15:37 Resp 18 06/29/20 15:37 BP 105/70 06/29/20 15:37 Pulse Ox 94 06/29/20 15:37 06/29/20 14:59 Intake Total 240 / 240 Output Total 300 / 300 Balance -60 / -60 Data NPU : 06/28/20 10:45 06/28/20 10:45 Micro: Microbiology 06/24/20 16:00 Blood Culture - Final Blood NO GROWTH AFTER 5 DAYS 06/24/20 15:54 Blood Culture - Final Blood NO GROWTH AFTER 5 DAYS 06/28/20 15:16 Cryptococcal Antigen - Final Cerebrospinal Fluid 06/28/20 15:16 Gram Stain - Final Cerebrospinal Fluid 06/28/20 15:16 Bacterial Antigens - Final Cerebrospinal Fluid Microbiology 06/24/20 16:00 Blood Blood Culture - Final NO GROWTH AFTER 5 DAYS 06/24/20 15:54 Blood Blood Culture - Final NO GROWTH AFTER 5 DAYS 06/28/20 15:16 Cerebrospinal Fluid Cryptococcal Antigen - Final 06/28/20 15:16 Cerebrospinal Fluid Gram Stain - Final 06/28/20 15:16 Cerebrospinal Fluid Bacterial Antigens - Final A&P Additional A&P Information (1) Hallucinations: (2) Coronary artery disease: (3) History of tobacco abuse: (4) GERD with esophagitis: (5) Mixed hyperlipidemia: (6) Fibromyalgia: (7) Hypertension: (8) Adult onset hypothyroidism: (9) COPD with chronic bronchitis and emphysema: (10) Nicotine dependence, cigarettes, uncomplicated: (11) Borderline personality disorder: (12) Major depressive disorder, recurrent severe without psychotic features: (13) Psychosis: (14) Intellectual disability: (15) delirium of unknown etiology This is a 65-year-old white male with a long history of mental health issues but no consistent history of psychotic symptoms, with family concerns for psychosis and him endorsing strange phenomena in his home with an openness to a trial of an antipsychotic, presents today with continuing deterioration and appearing to be in acute delirium. 1. Continue current medication. 2. We will continue to follow. 3. Preventive exploration of geriatric psychiatric bed after medical clearance to consider transfer to a geriatric psychiatric unit for more specialized treatment. 4. Agree with neurology involvement as we initially queried the idea of temporal lobe seizures and other possibly nonstroke neurological concerns. Involuntary Hold Information 96 Hour Hold: 96 Hour Involuntary Admission: No Attestations NPU Medical Necessity Statement*: N/A. Please see primary team note for medical necessity. However agree with transfer to bariatric inpatient psychiatric unit for further evaluation and treatment of his geriatric psychiatric concerns. 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
[2020-06-29] MEDS: enoxaparin 40 mg/0.4 mL Syringe SUBCUT (17:21)
[2020-06-29] MEDS: atorvastatin 40 mg Tablet 20 MG PO (20:26)
[2020-06-30] VITALS (10 sets, daily range): BP systolic 87–122; BP diastolic 55–82; PULSE 61–81; RESP 17–20; TEMP 36.6–37.2; O2SAT 92–96
[2020-06-30] MEDS: famotidine 20 mg Tablet PO ×2 (05:11→14:40)
--- NOTE | 2020-06-30 07:00 | PC.NURSE ---
Pt is asleep in bed On right side lying position. This nurse at bedside.
[2020-06-30] MEDS: levothyroxine 100 mcg Tablet PO (09:00)
[2020-06-30] MEDS: cyanocobalamin 1,000 mcg Tablet 1000 MCG PO (09:00)
[2020-06-30] MEDS: aspirin 81 mg EC Tablet PO (09:00)
[2020-06-30] MEDS: lithium carbonate 300 mg Capsule PO ×2 (09:00→17:39)
[2020-06-30] MEDS: lisinopril 10 mg Tablet PO (09:01)
[2020-06-30] MEDS: thiamine 100 mg Tablet PO (09:01)
[2020-06-30] MEDS: folic acid 1 mg Tablet PO ×2 (09:01→17:39)
[2020-06-30] MEDS: metoprolol tartrate 25 mg Tablet 12.5 MG PO ×2 (09:01→17:38)
[2020-06-30] MEDS: isosorbide mononitrate ER 30 mg Tablet PO (09:01)
--- NOTE | 2020-06-30 14:05 | P.PN_ITS ---
Subjective Subjective: Interval history: No acute overnight events. Patient continues to be calm and cooperative, however does remain disoriented. He was correctly able to however tell me his daughter's name and also the fact that he is in a hospital in [place]. Remaining of his speech remains very hard to understand due to dysarthria. He cannot tell me his own name or how old he is or the current year. Blood pressure this evening noted down to be systolic of 87, patient is asymptomatic. This may be related to resuming Imdur today. We will hold off on resuming this medication. Medications: Reviewed: Yes Medication Review Details: Active Medications Generic Name Dose Route Start Last Admin Trade Name Freq PRN Reason Stop Dose Admin Acetaminophen 650 mg 06/19/20 14:55 Acetaminophen 32 5 Mg Tablet PO Q4H PRN MILD PAIN Albuterol Sulfate 2 puff 06/19/20 16:06 Albuterol 8 Gm M di INHALATION Q4H PRN shortness of afshin th or wheezing Atorvastatin Calci um 20 mg 06/19/20 21:00 06/19/20 20:22 Atorvastatin 40 Mg Tablet PO 20 mg BEDTIME DESMOND Administration Benztropine Mesyla te 1 mg 06/19/20 14:55 Benztropine 1 Mg Tablet PO BID PRN Mild Extrapyramid al symptoms Camphor/Menthol/Ph enol 1 applic 06/19/20 14:55 Blistex Lip Oint 7 Gm Tube TOPICAL Q1H PRN DRYNESS Diphenhydramine HC l 50 mg 06/19/20 14:55 Diphenhydramine 50 Mg/Ml Sdv 1ml IM ONCE PRN Severe Extrapyram idal Symptoms Diphenhydramine HC l 50 mg 06/19/20 14:55 Diphenhydramine 50 Mg/Ml Sdv 1ml IM Q4H PRN Severe Aggression Famotidine 40 mg 06/19/20 21:00 06/20/20 08:55 Famotidine 20 Mg Tablet PO 40 mg Q12H DESMOND Administration Haloperidol 5 mg 06/19/20 14:55 Haloperidol 5 Mg Tablet PO Q4H PRN AGITATION Haloperidol Lactat e 5 mg 06/19/20 14:55 Haloperidol Inj 5 Mg/Ml Inj 1 Ml IM Q4H PRN Severe Aggression Hydralazine HCl 50 mg 06/19/20 21:00 06/20/20 08:54 Hydralazine 50 M g Tablet PO 50 mg Q12H DESMOND Administration Hydrochlorothiazid e 25 mg 06/20/20 09:00 06/20/20 08:55 Hydrochlorothiaz yojana 25 Mg Tablet PO 25 mg DAILY DESMOND Administration Hydroxyzine Pamoat e 50 mg 06/19/20 14:55 Hydroxyzine 25 M g Capsule PO Q6H PRN ANXIETY Isosorbide Mononit rate 30 mg 06/20/20 09:00 06/20/20 08:55 Isosorbide Cadwell itrate Er 30 Mg Ta blet PO 30 mg QAM DESMOND Administration Levothyroxine Sodi um 100 mcg 06/20/20 09:00 06/20/20 08:55 Levothyroxine 10 0 Mcg Tablet PO 100 mcg DAILY DESMOND Administration Lisinopril 20 mg 06/20/20 09:00 06/20/20 08:55 Lisinopril 20 Mg Tablet PO 20 mg DAILY DESMOND Administration Loperamide HCl 2 mg 06/19/20 14:55 Loperamide 2 Mg Capsule PO Q6H PRN DIARRHEA Lorazepam 2 mg 06/19/20 14:55 Lorazepam 2 Mg/M l Inj 1 Ml IM Q4H PRN Severe Aggression Meloxicam 15 mg 06/20/20 09:00 06/20/20 08:55 Meloxicam 7.5 Mg Tablet PO 15 mg DAILY DESMOND Administration Metoprolol Tartrat e 12.5 mg 06/19/20 18:00 06/20/20 08:55 Metoprolol Tartr ate 25 Mg Tablet PO 12.5 mg BID DESMOND Administration Nicotine 1 patch 06/19/20 14:55 Nicotine 21 Mg P atch TRANSDERMA DAILY PRN NICOTINE WITHDRAW AL Nicotine Polacrile x 2 mg 06/19/20 14:55 Nicotine 2 Mg Gu m BUCCAL Q2H PRN NICOTINE WITHDRAW AL Olanzapine 5 mg 06/19/20 14:55 Olanzapine 5 Mg Odt PO Q4H PRN Agitation/Psychos is Ondansetron HCl 4 mg 06/19/20 14:55 Ondansetron 4 Mg Tablet PO Q6H PRN NAUSEA AND VOMITI NG Trazodone HCl 50 mg 06/19/20 14:55 Trazodone 50 Mg Tablet PO BEDTIME PRN SLEEP No Known Allergies Allergy (Verified 06/19/20 11:35) Vitals/I&O/Wt Last Vital Signs Temp 98.1 F 06/30/20 12:00 Pulse 65 06/30/20 12:00 Resp 18 06/30/20 12:00 BP 87/55 06/30/20 12:50 Pulse Ox 94 06/30/20 09:24 06/29/20 06/30/20 06/30/20 22:59 06:59 14:59 Intake Total 120 / 360 418 / 418 Output Total 500 / 800 200 / 200 Balance -380 / -440 218 / 218 Weight last 48 hrs Weight 110.223 kg Physical Exam Narrative: EXAM NARRATIVE: GEN: Awake, alert, disoriented, laying in bed in no acute distress CVS: S1S2 N RS: CTA B/L Abd: Soft, nt/nd , bs+ SPECIAL EDUCATION INCLUSION TEACHER: no focal neuro deficits Data : 06/28/20 10:45 06/28/20 10:45 Micro: Microbiology 06/28/20 15:16 Gram Stain - Final Cerebrospinal Fluid CSF Culture - Preliminary 06/24/20 16:00 Blood Culture - Final Blood NO GROWTH AFTER 5 DAYS 06/24/20 15:54 Blood Culture - Final Blood NO GROWTH AFTER 5 DAYS 06/28/20 15:16 Cryptococcal Antigen - Final Cerebrospinal Fluid A&P Assessment and plan (1) AMS (altered mental status): Patient initially admitted to [facility] on 06/19 due to concerns for acute psychosis. However in spite of titration of medications, his mental status continued to worsen and on 06/24 he was noted to be unresponsive. Also had new MELVINA, which has since resolved. Due to concern for acute delirium vs metabolic encephalopathy from medical/neurological causes, he was transferred over to medicine. Thus far medical work up has remained unrevaling as to the cause of hs rapis cognitive decline, hallucinations and ataxia over a period of last 3-4 months. -CT head x2 with chronic microvascular changes, no acute CVA identified. Attempted to obtain MRI x2, however patient did not cooperate in spite of sedation and anxiolytics and therefore this study has been unable to be completed. -No overt signs of sepsis, CT CAP without any infectious sources, UA +, emprically treated with Ceftriaxone x 5 days with no change in mentation. Blood cx remains negative to date. negative procalcitonin. -Had MELVINA, with peak cr at 2, normalized quickly with iv hydration, attributed likely to dehydration from poor po intake and NSAIDs and lisinorpil. lisinopril now resumed at 10mg per day, check CMP in morning. - Newly introduced antipsychotics have been placed on hold, again without much significant difference. Melissa level mildly elevated, dose titrated down without change - LP not consistent with meningitis with normal glu, protein and cell count 1, negative gram stain, negative cryptococcal antigen. Oilogoclonal bands and IgG index pending. -negative HIV, syphilis and hepatitis screen -less likely to be CMV,HHV,SPECIAL EDUCATION INCLUSION TEACHER toxoplasmosis, JCV encephalitis as patient not otherwise immunocompromised -ESR 21, normal CRP, less likely to be vasculitic process withotu other signs of organ involevement -mild low vit b1 level raised concern for Wrnicke's , has been on suppl ementation -low folate and b12 levels, has been on adequate supplementation without any improvement -TSH normal at 3.04,FT4 nromal at 1.3, hba1c 4.7 -Ammonia normal at 23, LFTs within range -negative covid 19 ag -no hypoxia or hypercapnea on ABG - Possibility of Creutzfeldt Manuel disease and/or Lewy body dementia cannot be completely excluded Discussed the case briefly with Dr. Nye and also with [facility] neurology consult line at the request of patient's daughter , w/up has been extensive thus far, however will need MRI and EEG for further evaluation, which may be completed as outpatient. There does not appear to be an underlying cause amenable to acute intervention at this time. We will make arrangements to see Dr. Nye as outapatient in July 2019 at the time of discharge. As such patient is stable from a medicine standpoint to be placed at a [facility] psych facility attempts at which are ongoing. Status: Acute (2) MELVINA (acute kidney injury): now resolved with hydration Status: Acute Additional A&P Information #h/o hyperlipidemia:: continue statin #h/o HTN: continue metoprolol, stop Imdur has been as resuming this medication has dropped patient's blood pressure to 87 systolic, stopped lisinopril-HCTZ for MELVINA, can now resume lisinopril at 10mg qd and monitor renal function. Stopped hydralazine. #h/oabnormal stress test : likely has underlying CAD, stress test from 02/2020 had shown mall in size, moderate intensity, partially reversible perfusion defect in basal inferolateral and mid inferolateral fried. This correlates with left circumflex artery territory. However given partial reversibility and presence of artifact, clinical correlation is required. Echo without RWMA, 55- 60% EF, normal systolic function, gr 1 diatsolic function. #Add aspirin 81mg po qd to his medications. #COPD: not currently exacerbated, continue duonebs Dispo: [facility]psych placement. patient lives alone. Daughter and ex help. He will be unable to take care of himself at home Dvt ppx: lovenox 40 Full code Attestations Medical Necessity Statement*: Patient is currently stable from a medical standpoint, awaiting discharge to [facility] facility. Coding Level of Care Code Acute Inside Barrel Lathe Operator for Ofelia Rhodes Diagnoses AMS (altered mental status) R41.82 MELVINA (acute kidney injury) N17.9
[2020-06-30] MEDS: enoxaparin 40 mg/0.4 mL Syringe SUBCUT (14:41)
--- NOTE | 2020-06-30 15:18 | PC.NURSE ---
Pt is sitting up on the edge of the bed Feet on the floor. Pt exercising her arms. Offered pt the urinal. Pt voided approx 100 ml or clear, dark yellow urine. No foul odor noted.
--- NOTE | 2020-06-30 18:02 | PC.NURSE ---
Pt is up in the chair Assisted with minimum assistance to transfer from bed to chair. Pt is alert, awake and talkative and joking to nurse and ICE CREAM MAN. And then started to become teary-eyed, some words are mumbled. Words that i hear is, kill myself. While he is pointing his finger on his neck. I don't want to go to hell. Nurse and ICE CREAM MAN sat down with the pt. Pt is calm and sitting in the chair at this time.Looking around and at the floor. Nurse asked what he is looking there. Pt said, I'm looking for a yolanda. I want some mountain dew. notified. Provided pt with a small can of mountain dew. Pt was thankful. Will keep monitoring.
--- NOTE | 2020-06-30 19:00 | PC.NURSE ---
Bedside hand-off report discuss to 1:1 Yuli king
--- NOTE | 2020-06-30 19:00 | PC.NURSE ---
Assisted pt back in bed. Transferred with 2 person to bed. Pt is More awake and has episodes of crying outburst mood. Hand-off report to night filler, Carlos.
--- NOTE | 2020-06-30 19:58 | PM.NPN ---
Subjective NPU Subjective: Interval history: Jason presents today seeming a little bit more clear but still having that mumbling behavioral areas hard to hear him but certainly clear than previous days but not as clear as on admission. He continues to have occasional perceptual disturbances but we are starting to be able to appreciate his personality. There are still concerns for a dementing process and wondering whether we can benefit him from the addition of an antipsychotic. We discussed with him our desire to get home to a geriatric facility where they would have an expertise in doing with his current presentation and all the sequela. Mental Status Exam MSE Comments: This is an obese white male in the hospital scrubs with limited grooming and adequate eye contact. With a long lópez reminiscent of the [employer]. No abnormal movements and he was not seen walking to determine whether his gait had improved. Cooperative with exam in no acute distress. Speech was more normal volume slightly increased rate but but still had more difficulty with articulation than at admission with an almost fullness of his tongue like he cannot get it out of the way, with significant dysarthria. Mood was reported as better, affect appeared congruent. Thought process more organized. Thought content: He denied suicidal or homicidal ideation, there were no delusions reported or noted, he denied any auditory or visual hallucinations. Attention and concentration were improved and memory was hard to determine based on difficulty with understanding his words but none were formally tested. He was alert and oriented times person and place. Insight and judgment are improving and impulse control is improving, intellectual ability is likely impaired. Vitals/I&O/Wt Last Vital Signs Temp 98.2 F 06/30/20 19:38 Pulse 71 06/30/20 19:38 Resp 18 06/30/20 19:38 BP 98/64 06/30/20 19:38 Pulse Ox 95 06/30/20 19:38 06/30/20 14:59 Intake Total 418 / 418 Output Total 200 / 200 Balance 218 / 218 Weight last 48 hrs Weight 110.223 kg Data NPU : 06/28/20 10:45 07/01/20 03:08 Micro: Microbiology 06/28/20 15:16 Gram Stain - Final Cerebrospinal Fluid CSF Culture - Preliminary Microbiology 06/28/20 15:16 Cerebrospinal Fluid Gram Stain - Final 06/28/20 15:16 Cerebrospinal Fluid CSF Culture - Preliminary A&P Additional A&P Information (1) Hallucinations: (2) Coronary artery disease: (3) History of tobacco abuse: (4) GERD with esophagitis: (5) Mixed hyperlipidemia: (6) Fibromyalgia: (7) Hypertension: (8) Adult onset hypothyroidism: (9) COPD with chronic bronchitis and emphysema: (10) Nicotine dependence, cigarettes, uncomplicated: (11) Borderline personality disorder: (12) Major depressive disorder, recurrent severe without psychotic features: (13) Psychosis: (14) Intellectual disability: (15) delirium of unknown etiology This is a 65-year-old white male with a long history of mental health issues but no consistent history of psychotic symptoms, with family concerns for psychosis and him endorsing strange phenomena in his home with an openness to a trial of an antipsychotic, presents today with continuing deterioration and appearing to be in acute delirium. 1. Continue current medication. 2. We will continue to follow. 3. Preventive exploration of geriatric psychiatric bed after medical clearance to consider transfer to a geriatric psychiatric unit for more specialized treatment. 4. Agree with neurology involvement as we initially queried the idea of temporal lobe seizures and other possibly nonstroke neurological concerns. Involuntary Hold Information 96 Hour Hold: 96 Hour Involuntary Admission: No Attestations NPU Medical Necessity Statement*: N/A. Please see primary team note for medical necessity. However agree with transfer to geriatric inpatient psychiatric unit for further evaluation and treatment of his geriatric psychiatric concerns. Coding Level of Care Code Acute Legal Service Specialist for Ofelia Rhodes
[2020-06-30] MEDS: atorvastatin 40 mg Tablet 20 MG PO (21:04)
[2020-06-30] MEDS: nystatin powder 15 gm Btl 1 APPLIC TOPICAL (23:44)
[2020-07-01] VITALS (9 sets, daily range): BP systolic 95–113; BP diastolic 62–80; PULSE 57–82; RESP 16–20; TEMP 36.4–37.1; O2SAT 90–96
[2020-07-01 04:17] LABS: Alanine Aminotransferase 35 U/L (0-41); Albumin Level 3.5 g/dL (3.5-5.2); Alkaline Phosphatase 73 IU/L (40-130); Aspartate Amino Transferase 22 U/L (0-40); Blood Urea Nitrogen 19 mg/dL (8-23); Carbon Dioxide 25 mmol/L (22-29); Chloride 102 mmol/L (98-107); Globulin 3.3 g/dL (1.3-4.6); Glomerular Filtration Rate 67.4 mL/min (90-130); Glucose 92 mg/dL (65-115); Osmolality Calculated 284 mOsm/kg (285-295); Sodium 136 mmol/L (136-145); Total Bilirubin 0.8 mg/dL (0.15-1.2); Total Protein 6.8 g/dL (6.6-8.7)
[2020-07-01 04:24] LABS: Anion Gap 12.1 (5-19)
[2020-07-01 04:25] LABS: Potassium 3.1 mmol/L (3.5-5.1)
[2020-07-01] MEDS: famotidine 20 mg Tablet PO ×2 (04:50→17:47)
[2020-07-01] MEDS: potassium chloride ER 20 mEq Tablet 40 MEQ PO (09:21)
[2020-07-01] MEDS: cyanocobalamin 1,000 mcg Tablet 1000 MCG PO (09:22)
[2020-07-01] MEDS: lisinopril 10 mg Tablet PO (09:23)
[2020-07-01] MEDS: metoprolol tartrate 25 mg Tablet 12.5 MG PO ×2 (09:23→17:47)
[2020-07-01] MEDS: aspirin 81 mg EC Tablet PO (09:23)
[2020-07-01] MEDS: folic acid 1 mg Tablet PO ×2 (09:23→17:47)
[2020-07-01] MEDS: thiamine 100 mg Tablet PO (09:23)
[2020-07-01] MEDS: lithium carbonate 300 mg Capsule PO ×2 (09:23→17:47)
[2020-07-01] MEDS: levothyroxine 100 mcg Tablet PO (09:23)
--- NOTE | 2020-07-01 10:46 | PM.PN ---
Subjective Subjective: Interval history: He denies any pain. States he does not like food. When asked if he knows where he is, states he is in the air. When asked about current year states it is 2001, when informed it is not does not do states I want it to be 2001 . When asked if he has any favorite foods replies Charleen acharya . Confirming that he does not currently drink alcohol he replied but I am about to . Denies any favorite foods. Declines protein shakes. When asked if he knows why he is here replies Because I walked into the wrong room . Vitals/I&O/Wt Last Vital Signs Temp 98.1 F 07/01/20 07:12 Pulse 80 07/01/20 10:16 Resp 16 07/01/20 10:16 BP 112/69 07/01/20 07:12 Pulse Ox 92 07/01/20 10:16 06/30/20 07/01/20 07/01/20 22:59 06:59 14:59 Intake Total 300 / 718 120 / 120 Output Total 100 / 300 Balance 200 / 418 120 / 120 Weight last 48 hrs Weight 110.223 kg Physical Exam Const: COMMON NORMALS: no acute distress, patient oriented x3 and alert ORIENTATION/CONSCIOUSNESS: Yes awake OTHER: Sitting up in bed. He is interacting, in good spirits, however, does not have good insight into his condition. HENMT: COMMON NORMALS: oropharynx normal Neck/C-Spine: COMMON NORMALS: no JVD Resp: COMMON NORMALS: normal respiratory effort and clear to auscultation bilaterally AUSCULTATION: clear to auscultation bilaterally Cardio: COMMON NORMALS: no JVD, regular rhythm, S1 normal heart sound present, S2 normal heart sound present and No murmurs present (Cardio) RHYTHM: regular rhythm HEART SOUNDS: S1 normal heart sound present and S2 normal heart sound present GI: COMMON NORMALS: Normal to inspection, nondistended, normoactive bowel sounds present, Soft to palpation and non-tender PALPATION: Yes Soft to palpation Extremity: COMMON NORMALS: no joint enlargement and no pedal edema Neuro: COMMON NORMALS: patient oriented x3 and moves all extremities SENSORIUM/ORIENTATION: Yes alert Skin: COMMON NORMALS: no rashes or lesions noted GENERAL SKIN EXAM: no rashes or lesions noted Data : 12/11/20 10:45 07/01/20 03:08 Micro: Microbiology 06/28/20 15:16 Gram Stain - Final Cerebrospinal Fluid CSF Culture - Preliminary A&P Assessment and plan (1) AMS (altered mental status): He appears to be where he has been for a few days. Awake, alert, interactive, but confused as to his whereabouts and condition. Reaching out to psychiatry to discuss further plan. As previously documented he is going to need MRI and EEG on outpatient side for additional evaluation. Recheck lithium level. Will follow up with case management regarding admission to geriatric psychiatric facility. Continue folic acid and B12 replacement. Patient initially admitted to [facility] on 06/19 due to concerns for acute psychosis. However in spite of titration of medications, his mental status continued to worsen and on 06/24 he was noted to be unresponsive. Also had new MELVINA, which has since resolved. Due to concern for acute delirium vs metabolic encephalopathy from medical/neurological causes, he was transferred over to medicine. Thus far medical work up has remained unrevaling as to the cause of hs rapis cognitive decline, hallucinations and ataxia over a period of last 3-4 months. -CT head x2 with chronic microvascular changes, no acute CVA identified. Attempted to obtain MRI x2, however patient did not cooperate in spite of sedation and anxiolytics and therefore this study has been unable to be completed. -No overt signs of sepsis, CT CAP without any infectious sources, UA +, emprically treated with Ceftriaxone x 5 days with no change in mentation. Blood cx remains negative to date. negative procalcitonin. -Had MELVINA, with peak cr at 2, normalized quickly with iv hydration, attributed likely to dehydration from poor po intake and NSAIDs and lisinorpil. lisinopril now resumed at 10mg per day, check CMP in morning. - Newly introduced antipsychotics have been placed on hold, again without much significant difference. [place] level mildly elevated, dose titrated down without change - LP not consistent with meningitis with normal glu, protein and cell count 1, negative gram stain, negative cryptococcal antigen. Oilogoclonal bands and IgG index pending. -negative HIV, syphilis and hepatitis screen -less likely to be CMV,HHV,LEACH TANK TENDER toxoplasmosis, JCV encephalitis as patient not otherwise immunocompromised -ESR 21, normal CRP, less likely to be vasculitic process withotu other signs of organ involevement -mild low vit b1 level raised concern for Wrnicke's , has been on supplementation -low folate and b12 levels, has been on adequate supplementation without any improvement -TSH normal at 3.04,FT4 nromal at 1.3, hba1c 4.7 -Ammonia normal at 23, LFTs within range -negative covid 19 ag -no hypoxia or hypercapnea on ABG - Possibility of Creutzfeldt Manuel disease and/or Lewy body dementia cannot be completely excluded Discussed the case briefly with Dr. Nye and also with [facility] neurology consult line at the request of patient's daughter , w/up has been extensive thus far, however will need MRI and EEG for further evaluation, which may be completed as outpatient. There does not appear to be an underlying cause amenable to acute intervention at this time. We will make arrangements to see Dr. Nye as outapatient in July 2019 at the time of discharge. As such patient is stable from a medicine standpoint to be placed at a [facility] psych facility attempts at which are ongoing. Status: Acute (2) MELVINA (acute kidney injury): now resolved with hydration Status: Acute Additional A&P Information #h/o hyperlipidemia:: continue statin #h/o HTN: BP is better. Due to the blood pressure Imdur, as well as HCTZ on hold. Continues on metoprolol 12.5 mg, lisinopril. #h/o abnormal stress test : likely has underlying CAD, stress test from 02/2020 had shown mall in size, moderate intensity, partially reversible perfusion defect in basal inferolateral and mid inferolateral fried. This correlates with left circumflex artery territory. However given partial reversibility and presence of artifact, clinical correlation is required. Echo without RWMA, 55-60% EF, normal systolic function, gr 1 diatsolic function. Continue aspirin. #COPD: not currently exacerbated, continue duonebs Dispo: [facility]psych placement. patient lives alone. Daughter and ex help. He will be unable to take care of himself at home Dvt ppx: lovenox 40 Full code Attestations Medical Necessity Statement*: Continue arrangements for admission to geriatric psychiatric facility. Coding Level of Care Code Acute Liner Checker for [facility] Fwd Diagnoses AMS (altered mental status) R41.82 MELVINA (acute kidney injury) N17.9
[2020-07-01 12:24] LABS: Lyme AB Screen <0.90 index
[2020-07-01 16:57] LABS: E. Chaffeensis AB IGG <1:64; E. Chaffeensis AB IGM <1:20
--- NOTE | 2020-07-01 17:23 | P.PN_ITS ---
Subjective NPU Subjective: Interval history: Jason presents today clearly in improved to a level at least as good as the first day of admission if not better. He showed a severe with also still exhibited signs of dementia and possibly still having hallucinations versus illusions/misinterpretations. He was focused on going home, but was not inappropriate in his requests, but hopeful. Mental Status Exam MSE Comments: This is an obese white male in the hospital scrubs with limited grooming and adequate eye contact. With a long lópez reminiscent of the [employer]. No abnormal movements and he was not seen walking to determine whether his gait had improved. Cooperative with exam in no acute distress. Speech was more normal volume, slightly increased rate but with continued difficulty with henri culation that is improving Mood was reported as pretty good, affect appeared congruent. Thought process more organized. Thought content: He denied suicidal or homicidal ideation, there were no delusions reported or noted, he denied any auditory or visual hallucinations. Attention and concentration were improved and memory was improving, but none were formally tested. He was alert and oriented times person and place. Insight and judgment are improving and impulse control is improving, intellectual ability is likely impaired. Vitals/I&O/Wt Last Vital Signs Temp 97.6 F 07/01/20 15:30 Pulse 66 07/01/20 15:30 Resp 20 H 07/01/20 15:30 BP 109/62 07/01/20 15:30 Pulse Ox 96 07/01/20 15:30 07/01/20 07/01/20 07/02/20 14:59 22:59 06:59 Intake Total 360 / 360 240 / 600 Balance 360 / 360 240 / 600 Weight last 48 hrs Weight 110.223 kg Data NPU : 07/02/20 04:38 07/01/20 03:08 Micro: Microbiology 06/28/20 15:16 Gram Stain - Final Cerebrospinal Fluid CSF Culture - Preliminary Microbiology 06/28/20 15:16 Cerebrospinal Fluid Gram Stain - Final 06/28/20 15:16 Cerebrospinal Fluid CSF Culture - Preliminary A&P Additional A&P Information (1) Hallucinations: (2) Coronary artery disease: (3) History of tobacco abuse: (4) GERD with esophagitis: (5) Mixed hyperlipidemia: (6) Fibromyalgia: (7) Hypertension: (8) Adult onset hypothyroidism: (9) COPD with chronic bronchitis and emphysema: (10) Nicotine dependence, cigarettes, uncomplicated: (11) Borderline personality disorder: (12) Major depressive disorder, recurrent severe without psychotic features: (13) Psychosis: (14) Intellectual disability: (15) delirium of unknown etiology This is a 65-year-old white male with a long history of mental health issues but no consistent history of psychotic symptoms, with family concerns for psychosis and him endorsing strange phenomena in his home with an openness to a trial of an antipsychotic, presents today with continuing deterioration and appearing to be in acute delirium. 1. Continue current medication. 2. We will continue to follow. 3. Preventive exploration of geriatric psychiatric bed after medical clearance to consider transfer to a geriatric psychiatric unit for more specialized treatment. 4. We will discuss disposition considerations with continued improvement. Involuntary Hold Information 96 Hour Hold: 96 Hour Involuntary Admission: No Attestations NPU Medical Necessity Statement*: N/A. Please see primary team note for medical necessity. However agree with transfer to geriatric inpatient psychiatric unit for further evaluation and treatment of his geriatric psychiatric concerns. Discussed possible risks, benefit analysis with continued improvement. Coding Level of Care Code Acute Aircraft Line Assembler for Ofelia Rhodes
[2020-07-01] MEDS: enoxaparin 40 mg/0.4 mL Syringe SUBCUT (17:47)
[2020-07-01] MEDS: nystatin powder 15 gm Btl 1 APPLIC TOPICAL (17:50)
[2020-07-01] MEDS: atorvastatin 40 mg Tablet 20 MG PO (21:27)
--- NOTE | 2020-07-01 23:51 | PC.NURSE ---
This RN heard patient in [place] saying he was trying find a way to leave. 1:1 sitter was with patient and could not redirect him back to his room. Patient was up wandering through lundy trying to go in other patients rooms. Security called. Patient attempted to punch this RN when the RN prevented patient from going into another patient room. Patient had to be escorted by RNx2 by his arms back to his room. MD notified. Patient now sitting in room quiet and seems calm. Will continue to monitor.
[2020-07-02] VITALS (7 sets, daily range): BP systolic 94–135; BP diastolic 67–83; PULSE 54–82; RESP 16–18; TEMP 36.7–37.2; O2SAT 92–98
--- NOTE | 2020-07-02 00:41 | PC.NURSE ---
AROUND 2300 THE PATIENT CAME INTO THE HALLWAY ATTEMPTING TO LEAVE THE FLOOR. THE PSA WITH THE PATIENT ATTEMPTED TO DISTRACT AND REDIRECT THE PATIENT, PSA WAS UNABLE TO DO SO SUCCESSFULLY. THIS NURSE ATTEMPTED TO CONVINCE THE PATIENT BACK INTO HIS ROOM AND HE STATED THAT HE WAS LEAVING. THE CHARGE NURSE ALL MORALES, WAS ABLE TO GET THE PATIENT TO RETURN BACK TO HIS ROOM. APPROXIMATELY 20 MINUTES LATER THE PATIENT WAS AGAIN IN THE [place] AND ATTEMPTING TO LEAVE. THE CHARGE NURSE, ANOTHER MALE NURSE, AND THE PSA ALL ATTEMPTED TO RETURN THE PATIENT BACK INTO HIS ROOM AGAIN. THE PATIENT CONTINUED DOWN THE [place]. SECURITY WAS CALLED AND REQUESTED TO COME TO THE FLOOR. ARTISTS' MODEL WAS NOTIFIED AND THE AUTOMOBILE MECHANIC MOTOR HOSPITALIST WAS CALLED. ORDERS WERE PUT IN FOR IM GEODON X1 DOSE. AT THIS TIME THE PATIENT BECAME COMBATIVE WITH THE 2 MALE NURSES, THEY WERE ABLE TO SAFELY HANDLE THE PATIENT AND RETURN HIM TO HIS ROOM SAFELY AND UNHARMED. WHEN THE MEDICATION BECAME AVAILABLE, THE PATIENT HAD CALMED DOWN AND WAS COMPLIANT. THE PATIENT REMAINS CALM AND COMPLIANT AT THIS TIME.
[2020-07-02 05:02] LABS: Basophils % 0.7 %; Eosinophils # 0.3 10^3/uL (0.0-0.8); Eosinophils % 5.4 %; Hematocrit 43.7 % (42.0-52.0); Lymphocytes % 17.7 %; Mean Corpuscular Hemoglobin 30.6 pg (28.0-34.0); Mean Corpuscular Volume 95.6 fL (80-94); Mean Platelet Volume 11.7 fL (7.4-10.4); Monocytes # 0.7 10^3/uL (0.2-0.9); Monocytes % 12.5 %; Neutrophils # 3.55 10^3/uL (1.8-7.7); Neutrophils % 63.3 %; Nucleated Red Blood Cells % 0 %; Platelet Count 351 10^3/cmm (130-400); Red Blood Count 4.57 10^6/uL (4.1-5.3); White Blood Count 5.6 10^3/uL (4.0-10.0)
[2020-07-02 05:26] LABS: Alanine Aminotransferase 43 U/L (0-41); Albumin Level 4.1 g/dL (3.5-5.2); Alkaline Phosphatase 83 IU/L (40-130); Anion Gap 13.4 (5-19); Aspartate Amino Transferase 29 U/L (0-40); Blood Urea Nitrogen 19 mg/dL (8-23); Calcium 10.8 mg/dL (8.5-10.5); Carbon Dioxide 27 mmol/L (22-29); Chloride 99 mmol/L (98-107); Globulin 3.5 g/dL (1.3-4.6); Glomerular Filtration Rate 75.2 mL/min (90-130); Glucose 89 mg/dL (65-115); Osmolality Calculated 284 mOsm/kg (285-295); Potassium 3.4 mmol/L (3.5-5.1); Sodium 136 mmol/L (136-145); Total Bilirubin 0.9 mg/dL (0.15-1.2); Total Protein 7.6 g/dL (6.6-8.7)
[2020-07-02 05:28] LABS: Lithium 1.3 mmol/L (0.6-1.2)
--- NOTE | 2020-07-02 09:18 | PC.NURSE ---
PT HAS BEEN OUT IN THE [place] WALKING FIRST THING THIS AM, ANDREW QUEZADA WAS ABLE TO GET PT BACK TO HIS ROOM FOR HOT CHOCOLATE, APPROXIMATELY 1 HOUR LATER PT WAS IN HALLWAY STATING HE NEEDED TO GO WITH HIS FRIEND JN IN HIS TRUCK SO HE COULD GO HOME TO GET MONEY SO HE COULD SPEND MONEY. WHEN THIS NURSE TOLD PT IT WAS COLD OUTSIDE SO WE NEEDED TO STAY INSIDE AND GO BACK TO HIS ROOM HE REFUSED TO DO SO. ANDREW CERVANTES AND ANDREW QUEZADA CAME TO THE END OF THE [place] WHERE THE PT WAS AND ASSISTED IN TRYING TO GET PT BACK TO HIS ROOM, PT WAS INAPPROPRIATE WITH NURSE ANDREW LEE AND THIS NURSE STATING WE COULD SIT ON HIS LAP AND NOT TELL OUR HUSBANDS. PT WAS TOLD IT WAS INAPPROPRIATE AND WE CAN NOT TALK THAT WAY. PT HAS BEEN PLEASANT WITH NO OTHER REMARKS TO THIS NURSE THAT WERE INAPPROPRIATE. PT IS CURRENTLY SITTING AT THE WAITING ROOM AT [facility] WITH CHERISE AND ANDREW QUEZADA.
--- NOTE | 2020-07-02 09:38 | DCPLANNER ---
IMM completed with pt's daughter Melania and she stated she understood the rights.
[2020-07-02] MEDS: thiamine 100 mg Tablet PO (09:39)
[2020-07-02] MEDS: folic acid 1 mg Tablet PO ×2 (09:39→18:47)
[2020-07-02] MEDS: acetaminophen 325 mg Tablet 650 MG PO (09:39)
[2020-07-02] MEDS: cyanocobalamin 1,000 mcg Tablet 1000 MCG PO (09:39)
[2020-07-02] MEDS: levothyroxine 100 mcg Tablet PO (09:40)
[2020-07-02] MEDS: metoprolol tartrate 25 mg Tablet 12.5 MG PO ×2 (09:40→18:47)
[2020-07-02] MEDS: lisinopril 10 mg Tablet PO (09:40)
[2020-07-02] MEDS: potassium chloride oral liq 20 mEq/15 mL UDC 40 MEQ PO (09:40)
[2020-07-02] MEDS: aspirin 81 mg EC Tablet PO (09:40)
[2020-07-02] MEDS: lithium carbonate 150 mg Capsule PO ×2 (09:42→18:49)
--- NOTE | 2020-07-02 10:19 | P.PN_ITS ---
Subjective Subjective: Interval history: Today he states that his eyes have been itchy/burning. He is having a little bit of runny nose. When asked if he had any injury to his eyes states no, it was drugs , then laughs. Denies any pain or discomfort apart from chronic discomfort in his left shoulder. 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 He then lo oks out the window of the hallway where he is out walking with the nurses stating that he is looking out for his nephew's car which he feels is probably here. He states that he is in [place]. States the year is around 1999. Vitals/I&O/Wt Last Vital Signs Temp 98.1 F 07/02/20 08:00 Pulse 82 07/02/20 09:30 Resp 16 07/02/20 09:30 BP 135/83 07/02/20 08:00 Pulse Ox 97 07/02/20 09:30 07/01/20 07/02/20 07/02/20 22:59 06:59 14:59 Intake Total 240 / 600 Balance 240 / 600 Physical Exam Const: COMMON NORMALS: no acute distress, patient oriented x3 and alert ORIENTATION/CONSCIOUSNESS: Yes awake OTHER: Sitting up in bed. He is interacting, in good spirits, however, does not have good insight into his condition. HENMT: COMMON NORMALS: oropharynx normal Neck/C-Spine: COMMON NORMALS: no JVD Resp: COMMON NORMALS: normal respiratory effort and clear to auscultation bilaterally AUSCULTATION: clear to auscultation bilaterally Cardio: COMMON NORMALS: no JVD, regular rhythm, S1 normal heart sound present, S2 normal heart sound present and No murmurs present (Cardio) RHYTHM: regular rhythm HEART SOUNDS: S1 normal heart sound present and S2 normal heart sound present GI: COMMON NORMALS: Normal to inspection, nondistended, normoactive bowel sounds present, Soft to palpation and non-tender PALPATION: Yes Soft to palpation Extremity: COMMON NORMALS: no joint enlargement and no pedal edema OTHER: L shoulder without any swelling, erythema, tenderness on palpation, but with limited range of motion. Neuro: COMMON NORMALS: patient oriented x3 and moves all extremities SENSOR IUM/ORIENTATION: Yes alert Skin: COMMON NORMALS: no rashes or lesions noted GENERAL SKIN EXAM: no rashes or lesions noted Data : 07/02/20 04:38 07/02/20 04:38 Micro: Microbiology 06/28/20 15:16 Gram Stain - Final Cerebrospinal Fluid CSF Culture - Final A&P Assessment and plan (1) AMS (altered mental status): Prescription of psychiatry his mental and functional status have been improving. His speech has been clear, although he still appears somewhat confused. Not oriented to place or year. He otherwise interacts, cooperates, not in any distress, and in good spirits. He ambulates in the lundy today with nursing staff. As per discussion with psychiatry will see if we can have him assessed a geriatric psychiatric facility is now he would be more capable in participating with assessment therapy. Discussed also lithium level again elevated 1.3 despite lower dose at 300 mg twice daily. Will decrease to 150 mg twice daily. As previously documented he is going to need MRI and EEG on outpatient side for additional evaluation. Continue folic acid and B12 replacement. Patient initially admitted to NPU on 06/19 due to concerns for acute psychosis. However in spite of titration of medications, his mental status continued to worsen and on 06/24 he was noted to be unresponsive. Also had new MELVINA, which has since resolved. Due to concern for acute delirium vs metabolic encephalopathy from medical/neurological causes, he was transferred over to medicine. Thus far medical work up has remained unrevaling as to the cause of hs rapis cognitive decline, hallucinations and ataxia over a period of last 3-4 months. -CT head x2 with chronic microvascular changes, no acute CVA identified. Attempted to obtain MRI x2, however patient did not cooperate in spite of sedation and anxiolytics and therefore this study has been unable to be completed. -No overt signs of sepsis, CT CAP without any infectious sources, UA +, emprically treated with Ceftriaxone x 5 days with no change in mentation. Blood cx remains negative to date. negative procalcitonin. -Had MELVINA, with peak cr at 2, normalized quickly with iv hydration, attributed likely to dehydration from poor po intake and NSAIDs and lisinorpil. lisinopril now resumed at 10mg per day, check CMP in morning. - Newly introduced antipsychotics have been placed on hold, again without much significant difference. [place] level mildly elevated, dose titrated down w ithout change - LP not consistent with meningitis with normal glu, protein and cell count 1, negative gram stain, negative cryptococcal antigen. Oilogoclonal bands and IgG index pending. -negative HIV, syphilis and hepatitis screen -less likely to be CMV,HHV,CIGARETTE MAKING MACHINE CATCHER toxoplasmosis, JCV encephalitis as patient not otherwise immunocompromised -ESR 21, normal CRP, less likely to be vasculitic process withotu other signs of organ involevement -mild low vit b1 level raised concern for Wrnicke's , has been on supplementation -low folate and b12 levels, has been on adequate supplementation without any improvement -TSH normal at 3.04,FT4 nromal at 1.3, hba1c 4.7 -Ammonia normal at 23, LFTs within range -negative covid 19 ag -no hypoxia or hypercapnea on ABG - Possibility of Creutzfeldt Manuel disease and/or Lewy body dementia cannot be completely excluded Discussed the case briefly with Dr. Nye and also with [facility] neurology consult line at the request of patient's daughter , w/up has been extensive thus far, however will need MRI and EEG for further evaluation, which may be completed as outpatient. There does not appear to be an underlying cause amenable to acute intervention at this time. We will make arrangements to see Dr. Nye as outapatient in July 2019 at the time of discharge. As such patient is stable from a medicine standpoint to be placed at a [facility] psych facility attempts at which are ongoing. Status: Acute (2) MELVINA (acute kidney injury): Now resolved with hydration Status: Acute (3) Conjunctivitis: Mild bilateral conjunctivitis, he reports itching, gritty sensation in his eyes. Mild rhinitis. Will order topical antihistamine. Does not appear to have other symptoms to suggest somthing like lisa's syndrome, although did have UTI, urethritis possible? Not sure that this should affect his mental status. No symptoms in LE. No diarrhea. CRPP was normal. ESR minimally elevated. Status: Acute (4) Adhesive capsulitis of left shoulder: L shoulder. No signs of active inflammation. No erythema, swelling, pain on palpation. Limited range of motion. History of working in the [place]. Continue PT. Status: Acute (5) Hypokalemia: Replace Status: Acute Additional A&P Information #h/o hyperlipidemia: continue statin #h/o HTN: BP is better. Due to the blood pressure Imdur, as well as HCTZ on hold. Continues on metoprolol 12.5 mg, lisinopril. #h/o abnormal stress test : likely has underlying CAD, stress test from 02/2020 had shown mall in size, moderate intensity, partially reversible perfusion defect in basal inferolateral and mid inferolateral rfied. This correlates with left circumflex artery territory. However given partial reversibility and presence of artifact, clinical correlation is required. Echo without RWMA, 55- 60% EF, normal systolic function, gr 1 diatsolic function. Continue aspirin. #COPD: not currently exacerbated, continue duonebs Dispo: [facility]/psych placement. Patient lives alone. Daughter and ex help. He will be unable to take care of himself at home Dvt ppx: lovenox 40 Full code Attestations Medical Necessity Statement*: Continue admission for adjustment of psychiatric medications, placement attempts for additional assessment of management of geriatric psychiatric facility, subsequently with additional outpatient neurological work-up. Coding Level of Care Code Acute Broke Worker for [facility] Fwd Diagnoses AMS (altered mental status) R41.82 MELVINA (acute kidney injury) N17.9 Conjunctivitis H10.9 Adhesive capsulitis of left shoulder M75.02 Hypokalemia E87.6
--- NOTE | 2020-07-02 15:34 | PM.NPN ---
Subjective NPU Subjective: Interval history: Jason presents today continuing to have some looseness of thought but continuing to show improvement. It seems like we have moved backend python developer to how he was at admission, he is ambulating better now only struggling some with his memory and occasional hallucinations like he told his daughter that is son was there earlier. And some paranoia but expresses feeling that people are robbing him of his Wednesday such that he was asking if I could ask the primary doctor if he could bring him some money. Otherwise he is more pleasant and 40 is eating and sleeping better. Mental Status Exam MSE Comments: This is an obese white male in a hospital gown with limited grooming and adequate eye contact. With a long lópez reminiscent of the Top. No abnormal movements with improved ambulation/gait. Cooperative with exam in no acute distress. Speech was more normal rate and volume but with continued difficulty with articulation that is improving Mood was reported as fine, I am ready to go home, affect appeared congruent. Thought process more organized. Thought content: He denied suicidal or homicidal ideation, there were no delusions reported and some possible paranoia, he denied any auditory or visual hallucinations, with some reported by bystanders. Attention and concentration were improved and memory was improving from admission but still with likely deficits of dementia, but none were formally tested. He was alert and oriented times person and place. Insight and judgment are improving and impulse control is improving, intellectual ability is likely impaired. Vitals/I&O/Wt Last Vital Signs Temp 98.0 F 07/02/20 11:15 Pulse 63 07/02/20 14:54 Resp 16 07/02/20 14:54 BP 94/67 07/02/20 11:15 Pulse Ox 93 07/02/20 14:54 07/02/20 07/02/20 07/02/20 06:59 14:59 22:59 Intake Total 120 / 120 Balance 120 / 120 Data NPU : 07/02/20 04:38 07/02/20 04:38 Micro: Microbiology 06/28/20 15:16 Gram Stain - Final Cerebrospinal Fluid CSF Culture - Final Microbiology 06/28/20 15:16 Cerebrospinal Fluid Gram Stain - Final 06/28/20 15:16 Cerebrospinal Fluid CSF Culture - Final A&P Additional A&P Information (1) Hallucinations: (2) Coronary artery disease: (3) History of tobacco abuse: (4) GERD with esophagitis: (5) Mixed hyperlipidemia: (6) Fibromyalgia: (7) Hypertension: (8) Adult onset hypothyroidism: (9) COPD with chronic bronchitis and emphysema: (10) Nicotine dependence, cigarettes, uncomplicated: (11) Borderline personality disorder: (12) Major depressive disorder, recurrent severe without psychotic features: (13) Psychosis: (14) Intellectual disability: (15) delirium of unknown etiology This is a 65-year-old white male with a long history of mental health issues but no consistent history of psychotic symptoms, with family concerns for psychosis and him endorsing strange phenomena in his home with an openness to a trial of an antipsychotic, presents today with continuing deterioration and appearing to be in acute delirium. 1. Continue current medication. 2. We will continue to follow. 3. Preventive exploration of geriatric psychiatric bed after medical clearance to consider transfer to a geriatric psychiatric unit for more specialized treatment. 4. We will discuss disposition considerations with continued improvement. Involuntary Hold Information 96 Hour Hold: 96 Hour Involuntary Admission: No Attestations NPU Medical Necessity Statement*: N/A. Please see primary team note for medical necessity. However agree with transfer to geriatric inpatient psychiatric unit for further evaluation and treatment of his geriatric psychiatric concerns. Discussed possible risks, benefit analysis with continued improvement. Coding Level of Care Code Acute Tower Hoist Operator for Ofelia Rhodes
[2020-07-02] MEDS: famotidine 20 mg Tablet PO (16:18)
[2020-07-02 17:34] LABS: RMSF IGG NOT DETECTED; RMSF IGM NOT DETECTED
[2020-07-02] MEDS: olopatadine 0.1% Op Soln 5 mL Btl 1 DROP EYE-RIGHT (18:47)
--- NOTE | 2020-07-02 18:54 | PC.NURSE ---
shift summary pt has been pleasant, but has been very inappropriate with stating he has raped the nurses, and talking about drinking beer and watching porn, he has also stated he wanted myself and another nurse to sit on his lap. pt has taken medications other than lovenox and will not allow us to covid swab him. he has gotten up and walked to the end of the lundy stating he is waiting for glenn to come pick him up in his truck to take him home. pt had to be convinced to use the urinal since he had not urinated from 8 am until approximately 1530 when this nurse and saúl rn convinced him to urinate. he was bladder scanned and had 374 in bladder, when urinated he had 250 out.
[2020-07-02] MEDS: atorvastatin 40 mg Tablet 20 MG PO (21:25)
[2020-07-03] VITALS (8 sets, daily range): BP systolic 82–121; BP diastolic 56–76; PULSE 50–75; RESP 16–19; TEMP 36.4–37; O2SAT 92–99
[2020-07-03] MEDS: famotidine 20 mg Tablet PO ×2 (04:45→18:36)
[2020-07-03 05:30] LABS: Alanine Aminotransferase 54 U/L (0-41); Albumin Level 3.9 g/dL (3.5-5.2); Alkaline Phosphatase 85 IU/L (40-130); Aspartate Amino Transferase 34 U/L (0-40); Blood Urea Nitrogen 21 mg/dL (8-23); Calcium 10.7 mg/dL (8.5-10.5); Carbon Dioxide 29 mmol/L (22-29); Chloride 102 mmol/L (98-107); Globulin 3.3 g/dL (1.3-4.6); Glucose 100 mg/dL (65-115); Osmolality Calculated 285 mOsm/kg (285-295); Sodium 136 mmol/L (136-145); Total Bilirubin 0.6 mg/dL (0.15-1.2); Total Protein 7.2 g/dL (6.6-8.7)
[2020-07-03 05:50] LABS: Anion Gap 8.7 (5-19); Potassium 3.7 mmol/L (3.5-5.1)
[2020-07-03] MEDS: levothyroxine 100 mcg Tablet PO (08:15)
[2020-07-03] MEDS: lithium carbonate 150 mg Capsule PO ×2 (08:15→18:37)
[2020-07-03] MEDS: lisinopril 10 mg Tablet PO (08:15)
[2020-07-03] MEDS: aspirin 81 mg EC Tablet PO (08:15)
[2020-07-03] MEDS: cyanocobalamin 1,000 mcg Tablet 1000 MCG PO (08:15)
[2020-07-03] MEDS: thiamine 100 mg Tablet PO (08:15)
[2020-07-03] MEDS: folic acid 1 mg Tablet PO ×2 (08:15→18:36)
[2020-07-03] MEDS: metoprolol tartrate 25 mg Tablet 12.5 MG PO (08:15)
[2020-07-03] MEDS: olopatadine 0.1% Op Soln 5 mL Btl 1 DROP EYE-RIGHT ×2 (08:21→18:37)
--- NOTE | 2020-07-03 11:51 | CTR_ITS ---
PROCEDURE INFORMATION: Exam: CT Left Upper Extremity With Contrast, Shoulder Exam date and time: 07/03/2020 9:35 PM Age: 65 years old Clinical indication: Pain; Shoulder; Left TECHNIQUE: Imaging protocol: CT of the Left upper extremity with contrast material. Exam focused on the shoulder Radiation optimization: All CT scans at this facility use at least one of these dose optimization techniques: automated exposure control; mA and/or kV adjustment per patient size (includes targeted exams where dose is matched to clinical indication); or iterative reconstruction. Contrast material: OMNI 300; Contrast volume: 95 ml; Contrast route: INTRAVENOUS (IV); COMPARISON: No relevant prior studies available. RADIATION DOSE METRICS: Total DLP (mGy-cm): 1909.65 FINDINGS: Bones/joints: Moderate to severe glenohumeral joint osteoarthritis. Soft tissues: Small to moderate joint effusion seen along the anterior aspect of the glenohumeral joint. Several prominent nonspecific axillary lymph nodes measuring up to 9.[address]/CT shoulder LT w con [id number] IMPRESSION: 1. Moderate to severe glenohumeral joint osteoarthritis. 2. Small to moderate joint effusion seen along the anterior aspect of the glenohumeral joint. 3. Several prominent nonspecific axillary lymph nodes measuring up to 9.5 mm. Radiation Dose CTDIVOL = (mGy): DLP = 1909.65 (mGy-cm)
--- NOTE | 2020-07-03 11:51 | PM.PN ---
Subjective Subjective: Interval history: He is asleep, but wakes up easily. On turning in bed he is noticing some pain in his left shoulder. When asked if he had injured that in someway, states small metal , and hugging women . Does not provide duration of symptoms when asked. Denies any pain elsewhere. Says he is doing all right. When asked about symptoms in his eyes, states that today they are not bothering him. He knows he is in [place]. Knows he is in the hospital. Says the year is 2001. Vitals/I&O/Wt Last Vital Signs Temp 97.9 F 07/03/20 07:55 Pulse 60 07/03/20 08:49 Resp 16 07/03/20 08:49 BP 105/75 07/03/20 07:55 Pulse Ox 94 07/03/20 08:49 07/02/20 07/03/20 07/03/20 22:59 06:59 14:59 Intake Total 300 / 420 480 / 480 Output Total 250 / 250 Balance 50 / 170 480 / 480 Physical Exam Const: COMMON NORMALS: no acute distress and patient oriented x3 OTHER: Laying in bed. Interactive, cooperative. HENMT: COMMON NORMALS: oropharynx normal Neck/C-Spine: COMMON NORMALS: no JVD Resp: COMMON NORMALS: normal respiratory effort and clear to auscultation bilaterally AUSCULTATION: clear to auscultation bilaterally Cardio: COMMON NORMALS: no JVD, regular rhythm, S1 normal heart sound present, S2 normal heart sound present and No murmurs present (Cardio) RHYTHM: regular rhythm HEART SOUNDS: S1 normal heart sound present and S2 normal heart sound present GI: COMMON NORMALS: Normal to inspection, nondistended, normoactive bowel sounds present, Soft to palpation and non-tender PALPATION: Yes Soft to palpation Extremity: COMMON NORMALS: no joint enlargement and no pedal edema OTHER: L shoulder without any swelling, erythema. Limited range of motion with some pain on passive ROM. Neuro: COMMON NORMALS: patient oriented x3 and moves all extremities Skin: COMMON NORMALS: no rashes or lesions noted GENERAL SKIN EXAM: no rashes or lesions noted Data : 07/02/20 04:38 07/03/20 04:18 Micro: Microbiology 06/28/20 15:16 Gram Stain - Final Cerebrospinal Fluid CSF Culture - Final A&P Assessment and plan (1) AMS (altered mental status): Mental status overall with some improvement, however, still poor insight. Arrangements underway for additional assessment and optimization of therapy over at a geriatric psychiatric facility. [place] dose was decreased to 150 mg twice daily given still elevated level on 07/02. We will recheck. As previously documented he is going to need MRI and EEG on outpatient side for additional evaluation. Continue folic acid and B12 replacement. PCR covid 19 test is requested by the facility, and has been requested. He had previously declined to do the test. Patient initially admitted [facility] on [facility]/19 due to concerns for acute psychosis. However in spite of titration of medications, his mental status continued to worsen and on 06/24 he was noted to be unresponsive. Also had new MELVINA, which has since resolved. Due to concern for acute delirium vs metabolic encephalopathy from medical/neurological causes, he was transferred over to medicine. Thus far medical work up has remained unrevaling as to the cause of hs rapis cognitive decline, hallucinations and ataxia over a period of last 3-4 months. Minimal noted hypercalcemia 10.9 corrected, doubt this should be responsible for his mental status changes. -CT head x2 with chronic microvascular changes, no acute CVA identified. Attempted to obtain MRI x2, however patient did not cooperate in spite of sedation and anxiolytics and therefore this study has been unable to be completed. -No overt signs of sepsis, CT CAP without any infectious sources, UA +, emprically treated with Ceftriaxone x 5 days with no change in mentation. Blood cx remains negative to date. negative procalcitonin. -Had MELVINA, with peak cr at 2, normalized quickly with iv hydration, attributed likely to dehydration from poor po intake and NSAIDs and lisinorpil. lisinopril now resumed at 10mg per day, check CMP in morning. - Newly introduced antipsychotics have been placed on hold, again without much significant difference. [place] level mildly elevated, dose titrated down without change, but had to be decreased again on 07/02. - LP not consistent with meningitis with normal glu, protein and cell count 1, negative gram stain, negative cryptococcal antigen. Oilogoclonal bands and IgG index pending. -negative tick panel -negative HIV, syphilis and hepatitis screen -less likely to be CMV,HHV,INSERT MOLDING OPERATOR toxoplasmosis, JCV encephalitis as patient not otherwise immunocompromised -ESR 21, normal CRP, less likely to be vasculitic process without other signs of organ involevement -mild low vit b1 level raised concern for Wrnicke's , has been on supplementation -low folate and b12 levels, has been on adequate supplementation -TSH normal at 3.04,FT4 nromal at 1.3, hba1c 4.7 -Ammonia normal at 23, LFTs within range -negative covid 19 ag -no hypoxia or hypercapnea on ABG - Possibility of Creutzfeldt Manuel disease and/or Lewy body dementia cannot be completely excluded Case was discussed with Dr. Nye and also with [facility] neurology consult line with recommendation for MRI and EEG for further evaluation, which may be completed as outpatient. There does not appear to be an underlying cause amenable to acute intervention at this time. We will make arrangements to see Dr. Nye as outapatient in July 2019 at the time of discharge. As such patient is stable from a medicine standpoint to be placed at a [facility] psych facility attempts at which are ongoing. Status: Acute (2) MELVINA (acute kidney injury): Now resolved with hydration Status: Acute (3) Conjunctivitis: Improved. Continue topical antihistamine for now. Mild bilateral conjunctivitis, he reports itching, gritty sensation in his eyes. Mild rhinitis. Will order topical antihistamine. Does not appear to have other symptoms to suggest somthing like lisa's syndrome, although did have UTI, urethritis possible? Not sure that this should affect his mental status. No symptoms in LE. No diarrhea. CRPP was normal. ESR minimally elevated. Additional assessment of L shoulder w CT. Status: Acute (4) Adhesive capsulitis of left shoulder: CT L shoulder due to pain on passive ROM, although on inspection no signs of active inflammation or infection. Chronicity not clear, reports history of injury while working in a [employer]. Suspect this is likely chronic. Status: Acute (5) Hypokalemia: Replace Status: Acute Additional A&P Information #h/o hyperlipidemia: continue statin #h/o HTN: BP is better. Due to the blood pressure Imdur, as well as HCTZ on hold. Continues on metoprolol 12.5 mg, lisinopril. #h/o abnormal stress test : likely has underlying CAD, stress test from 02/2020 had shown mall in size, moderate intensity, partially reversible perfusion defect in basal inferolateral and mid inferolateral fried. This correlates with left circumflex artery territory. However given partial reversibility and presence of artifact, clinical correlation is required. Echo without RWMA, 55-60% EF, normal systolic function, gr 1 diatsolic function. Continue aspirin. #COPD: not currently exacerbated, continue duonebs Dispo: [facility]/psych placement. Patient lives alone. Daughter and ex help. He will be unable to take care of himself at home Dvt ppx: lovenox 40 Full code Attestations Medical Necessity Statement*: Continue admission for assessment of covid 19 PCR, arrangements for placement to geriatric psychiatric facility with neurology follow up. 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
--- NOTE | 2020-07-03 14:19 | ECG_ITS ---
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 Measurements Intervals Zahl Rate: 54 P: 54 MO: 184 QRS: -17 QRSD: 137 T: 3 QT: 444 QTc: 421 Interpretive Statements SINUS BRADYCARDIA INTRAVENTRICULAR CONDUCTION DELAY [130+ ms QRS DURATION] POSSIBLE LEFT VENTRICULAR HYPERTROPHY [VOLTAGE CRITERIA PLUS LAE OR QRS WIDENING] Compared to ECG 06/23/2020 15:16:54 Sinus rhythm no longer present Electronically Signed On 07-04-2020 22:51:00 PIECE MAKER by Bobo Keller M.D. [id number] carlin
[2020-07-03 17:17] LABS: VDRL on CSF NON-REACTIVE
[2020-07-03] MEDS: nystatin powder 15 gm Btl 1 APPLIC TOPICAL ×2 (18:36→21:00)
[2020-07-03] MEDS: enoxaparin 40 mg/0.4 mL Syringe SUBCUT (18:36)
[2020-07-03] MEDS: atorvastatin 40 mg Tablet 20 MG PO (19:47)
[2020-07-03] MEDS: iohexol 300 mg/mL 100 mL Btl IV (22:00)
[2020-07-04] VITALS (7 sets, daily range): BP systolic 116–126; BP diastolic 74–90; PULSE 73–88; RESP 16–18; TEMP 36.4–36.7; O2SAT 93–100
--- NOTE | 2020-07-04 00:38 | PC.NURSE ---
pt refused to have midnight vitals taken.
[2020-07-04 06:29] LABS: Alanine Aminotransferase 59 U/L (0-41); Alkaline Phosphatase 85 IU/L (40-130); Anion Gap 12.4 (5-19); Aspartate Amino Transferase 33 U/L (0-40); Blood Urea Nitrogen 12 mg/dL (8-23); Calcium 10.4 mg/dL (8.5-10.5); Carbon Dioxide 25 mmol/L (22-29); Chloride 101 mmol/L (98-107); Globulin 3.2 g/dL (1.3-4.6); Glomerular Filtration Rate 97.3 mL/min (90-130); Glucose 91 mg/dL (65-115); Osmolality Calculated 279 mOsm/kg (285-295); Potassium 3.4 mmol/L (3.5-5.1); Sodium 135 mmol/L (136-145); Total Bilirubin 0.7 mg/dL (0.15-1.2); Total Protein 7.2 g/dL (6.6-8.7)
[2020-07-04 06:41] LABS: Lithium 1.1 mmol/L (0.6-1.2)
[2020-07-04] MEDS: folic acid 1 mg Tablet PO (08:16)
[2020-07-04] MEDS: olopatadine 0.1% Op Soln 5 mL Btl 1 DROP EYE-RIGHT (08:16)
[2020-07-04] MEDS: lithium carbonate 150 mg Capsule PO (08:16)
[2020-07-04] MEDS: aspirin 81 mg EC Tablet PO (08:16)
[2020-07-04] MEDS: thiamine 100 mg Tablet PO (08:16)
[2020-07-04] MEDS: cyanocobalamin 1,000 mcg Tablet 1000 MCG PO (08:16)
[2020-07-04] MEDS: levothyroxine 100 mcg Tablet PO (08:16)
--- NOTE | 2020-07-04 11:53 | PC.NURSE ---
Patient would not sit still enough to get a blood pressure reading, tried 2X's. Attempted to move cuff and patient became agitated. Primary nurse notified.
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
[2020-07-04] MEDS: potassium chloride oral liq 20 mEq/15 mL UDC 40 MEQ PO (18:14)
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
[2020-07-05 04:28] VITALS: BP 134/92; PULSE 101; RESP 19; TEMP 36.6; O2SAT 93
[2020-07-05] MEDS: OLANZapine 5 mg TABLET PO (05:00)
[2020-07-05 06:10] LABS: Alanine Aminotransferase 62 U/L (0-41); Albumin Level 3.9 g/dL (3.5-5.2); Alkaline Phosphatase 85 IU/L (40-130); Aspartate Amino Transferase 37 U/L (0-40); Blood Urea Nitrogen 10 mg/dL (8-23); Carbon Dioxide 19 mmol/L (22-29); Chloride 104 mmol/L (98-107); Globulin 3.4 g/dL (1.3-4.6); Glomerular Filtration Rate 113.5 mL/min (90-130); Glucose 89 mg/dL (65-115); Osmolality Calculated 279 mOsm/kg (285-295); Sodium 135 mmol/L (136-145); Total Bilirubin 0.8 mg/dL (0.15-1.2); Total Protein 7.3 g/dL (6.6-8.7)
[2020-07-05 06:13] LABS: Anion Gap 16.1 (5-19); Potassium 4.1 mmol/L (3.5-5.1)
[2020-07-05 07:54] VITALS: BP 118/86; PULSE 80; RESP 18; TEMP 36.6; O2SAT 96
[2020-07-05] MEDS: levothyroxine 100 mcg Tablet PO (08:25)
[2020-07-05] MEDS: thiamine 100 mg Tablet PO (08:25)
[2020-07-05] MEDS: cyanocobalamin 1,000 mcg Tablet 1000 MCG PO (08:25)
[2020-07-05] MEDS: lithium carbonate 150 mg Capsule PO (08:25)
[2020-07-05] MEDS: aspirin 81 mg EC Tablet PO (08:25)
[2020-07-05] MEDS: folic acid 1 mg Tablet PO (08:26)
[2020-07-05] MEDS: olopatadine 0.1% Op Soln 5 mL Btl 1 DROP EYE-RIGHT (08:26)
[2020-07-05 09:04] LABS: Coronavirus Lab Test PTC Negative
[2020-07-05 09:16] VITALS: PULSE 89; RESP 16; O2SAT 94
[2020-07-05 12:00] VITALS: BP 139/83; PULSE 81; RESP 18; TEMP 36.8; O2SAT 98
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
--- NOTE | 2020-07-05 14:23 | PC.NURSE ---
Report to Jc MORALES at [facility] [phone] at this time. Patient daughter notified at this time as well.
[2020-07-05 15:43] VITALS: BP 143/90; PULSE 79; RESP 18; TEMP 36.6; O2SAT 96
--- NOTE | 2020-07-05 16:35 | PC.NURSE ---
Ambulance here to pick patient up and transport him to [facility].
[2020-07-05 17:19] VITALS: BP 143/90; PULSE 79; RESP 18; TEMP 36.6; O2SAT 96
== END 2020-07-05 16:35 | DRG 885 ==
LOC: ER 11:02 → NP 15:21 → MEDSURG 06-24 17:05
PROVIDERS: Emergency Medicine; Family Medicine; Internal Medicine; Student in an Organized Health Care Education/Training Program; Admitting Provider Psychiatry & Neurology Psychiatry; Emergency Provider Nurse Practitioner Family; PCP Nurse Practitioner; Visit Provider Internal Medicine
DX: F23 Brief psychotic disorder (principal); F33.2 Major depressive disorder, recurrent severe without psychotic features; A81.00 Creutzfeldt-Jakob disease, unspecified; N17.9 Acute kidney failure, unspecified; R41.82 Altered mental status, unspecified; R26.81 Unsteadiness on feet; Z79.899 Other long term (current) drug therapy; F17.210 Nicotine dependence, cigarettes, uncomplicated; E03.9 Hypothyroidism, unspecified; F10.21 Alcohol dependence, in remission; F60.3 Borderline personality disorder; J43.9 Emphysema, unspecified; I25.10 Atherosclerotic heart disease of native coronary artery without angina pectoris; M79.7 Fibromyalgia; K21.00 Gastro-esophageal reflux disease with esophagitis, without bleeding; I10 Essential (primary) hypertension; E78.5 Hyperlipidemia, unspecified; E66.01 Morbid (severe) obesity due to excess calories; Z68.35 Body mass index [BMI] 35.0-35.9, adult; G47.00 Insomnia, unspecified; E53.8 Deficiency of other specified B group vitamins; E87.6 Hypokalemia; M75.02 Adhesive capsulitis of left shoulder; H10.9 Unspecified conjunctivitis; R47.1 Dysarthria and anarthria; G31.83 Neurocognitive disorder with Lewy bodies; F02.80 Dementia in other diseases classified elsewhere, unspecified severity, without behavioral disturbance, psychotic disturbance, mood disturbance, and anxiety; Z68.33 Body mass index [BMI] 33.0-33.9, adult; F79 Unspecified intellectual disabilities; G89.29 Other chronic pain
CPT/HCPCS: 12345; 36415; 36600; 70450; 71045; 71046; 71250; 73201; 74176; 80051; 80053; 80061; 80178; 80306; 80307; 80500; 81000; 81001; 81003; 82140; 82330; 82436; 82607; 82746; 82784; 82805; 82945; 83036; 83605; 83735; 83880; 83916; 84100; 84133; 84145; 84157; 84300; 84425; 84439; 84443; 84484; 85025; 85651; 86140; 86403; 86592; 86618; 86666; 86705; 86706; 86709; 86757; 86803; 87040; 87070; 87075; 87205; 87327; 87340; 87426; 87635; 87806; 89050; 93005; 93880; 94640; 96372; 96375; 97116; 97161; 99281; J0696; J1200; J1630; J1650; J2060; J3010; J3420; J3486; J3490; J3535; J7030; Q9967

== ENCOUNTER → 2020-07-24 07:51 | Outpatient (BNVA) | payer MEDICARE, MEDICAID, SELFPAY | PROVIDERS: PCP Nurse Practitioner; Visit Provider Nurse Practitioner | DX: F60.3 Borderline personality disorder (principal) | CPT/HCPCS: 99214 ==

== ENCOUNTER 2020-07-27 10:52 | Emergency (ER) | payer MEDICARE, MEDICAID, SELFPAY ==
[2020-07-27 10:59] VITALS: BP 146/81; PULSE 77; RESP 18; TEMP 36.7; O2SAT 94; BMI 37.3
--- NOTE | 2020-07-27 10:59 | ED_ITS ---
HPI - Allergic Reaction General: Chief complaint: Allergic Reaction Stated complaint: Allergic Reaction Time Seen by Provider: 07/27/20 10:58 History of Present Illness: HPI narrative: 85-year-old male brought into the emergency room by his daughter. He has some cognitive decline that they have attributed to Lewy body disease. Today comes in he is swelling of his lips and some urticaria on his face and arms for is not had any difficulty breathing been going on for a couple of hours I did 1 dose of home Benadryl which helped a little but did not resolve. He not complaining of any shortness of breath. He is on several different medications none are new in the last week except for a stool softener. No recent illness chest pain abdominal pain or flulike symptoms. MD complaint: allergic reaction Onset (ago): hour(s) Exposure: medication Associated symptoms: Reports itching and lip swelling; Deny abdominal pain, difficulty breathing, dysphagia, dizziness, facial swelling, hoarseness, nausea, rash, tongue swelling or vomiting Severity: mild Treatment prior to arrival: benadryl Previous Allergic Reaction History: none Review of Systems Const: Denies: fever(s), chills, body aches, change in appetite, fatigue or malaise ENMT: Denies: throat pain, ear or mastoid pain, nasal discharge or nasal congestion Card: Denies: chest pain, edema, dyspnea on exertion or orthopnea Resp: Denies: dyspnea, productive cough or non-productive cough GI: Denies: abdominal pain, nausea, vomiting or dysphagia : Denies: flank pain, dysuria, urinary frequency or urinary urgency Skin/Breast: Denies: rash or pruritus All/Imm: Denies: tongue swelling or facial swelling PFSH ED PFSH: Medical History Adult onset hypothyroidism Alcohol dependence, in remission Borderline personality disorder COPD with chronic bronchitis and emphysema Coronary artery disease Fibromyalgia GERD with esophagitis History of tobacco abuse Hypercalcemia Hypertension Major depressive disorder, recurrent severe without psychotic features Mixed hyperlipidemia Nicotine dependence, cigarettes, uncomplicated Vitamin B deficiency Surgical History History of ankle surgery Left ORIF History of removal of cyst Back Family History Other Cancer Diabetes Hypertension Psychiatric illness Social History Smoking and tobacco status: former smoker Quit status (tobacco): has quit using tobacco Year quit tobacco: 1-2 yrs ago Second hand smoke exposure: No Smoking risk assessment/counseling performed?: Yes Tobacco counseling given: counseling >3 minutes Alcohol intake: former Desire information about alcohol rehabilitation?: No Counseling given: No Desire information about substance/drug rehabilitation?: No Counseling given: No Adopted: No Caregiver/support person: No Lives independently: No Household members: caregiver Housing: Manufactured/Mobile home Marital status: Number of children: 2 service: No Current occupational status: disabled History of recent travel: No Current gender identity: Male Physical Exam Const: COMMON NORMALS: no acute distress GENERAL APPEARANCE: cooperative and comfortable HENMT: COMMON NORMALS: normocephalic, atraumatic, hearing grossly normal bilaterally, external ears normal, EAC's normal, TM's normal bilaterally, Normal nasal mucous membranes and turbinates present, moist oral mucous membranes and oropharynx normal HEAD & SCALP: normocephalic and atraumatic NOSE: Normal nasal mucous membranes and turbinates present EXTERNAL EAR: Yes external ears normal EXTERNAL AUDITORY CANAL: EAC's normal TYMPANIC MEMBRANE: TM's normal bilaterally Eye: COMMON NORMALS: Equal, round and reactive pupils present, EOMs intact bilaterally, conjunctivae normal and no scleral icterus CONJUNCTIVA: Yes conjunctivae normal PUPIL: Yes Equal, round and reactive pupils present Neck/C-Spine: COMMON NORMALS: full ROM, no lymphadenopathy, supple and no JVD Lymph: LYMPHATIC: no lymphadenopathy noted and no lymphedema noted Resp: COMMON NORMALS: normal respiratory effort, No retractions, No use of accessory muscles and clear to auscultation bilaterally AUSCULTATION: clear to auscultation bilaterally Cardio: COMMON NORMALS: no JVD, regular rate, regular rhythm and No murmurs present (Cardio) RATE: regular rate RHYTHM: regular rhythm GI: COMMON NORMALS: Soft to palpation and No hepatosplenomegaly present AUSCULTATION: Yes normoactive bowel sounds PALPATION: Yes Soft to palpation, No Tenderness to palpation present (GI), No Guarding due to palpation present (GI) and Yes No hepatosplenomegaly present Extremity: COMMON NORMALS: normal to inspection, capillary refill normal, no clubbing, cyanosis or edema, no calf tenderness and no pedal edema Skin: NARRATIVE SKIN EXAM: Moderate swelling of the upper and lower lip mild hives on the upper extremities and face. No difficulty speaking or swallowing. Voice is not muffled per the family member who is with him. Course Vital Signs: Vital signs: Vital Signs Temperature 98.0 F 07/27/20 10:59 Pulse Rate 77 07/27/20 10:59 Respiratory Rate 18 07/27/20 10:59 Blood Pressure 146/81 07/27/20 10:59 Pulse Oximetry 94 07/27/20 10:59 MDM - Allergic Reaction MDM Narrative: Medical decision making narrative: Reviewed with the family member for Covid ways to treat treating this would be with steroids and antihist amines. Concerned with either steroid or either of those options it may exacerbate his cognitive decline and generate some behavioral issues. They given 1 low-dose of Benadryl this morning he had no sedative side effects to that that they noticed. Instead I recommend topical Benadryl topical neuroid cream to the arms with improvement majority of the itching is. They can use very low-dose Benadryl not more than 12 and half milligrams every 6 hours. Will increase his Pepcid to 40 mg twice daily if there is any problems he is to return immediately. Discharge Plan Discharge Patient Disposition: Home Clinical Impression: Allergic reaction, Age-related cognitive decline Condition: Stable Prescriptions: New Pepcid 40 mg tablet 40 mg PO BID Qty: 14 RF: 0 No Action metoprolol tartrate 25 mg tablet 12.5 mg PO BID Qty: 90 RF: 3 Hold Instructions: Resume on 07/12/20. if blood pressure and HR allow melatonin 3 mg capsule 3 mg PO DAILY RF: 0 lithium carbonate 300 mg capsule 300 mg PO BID Qty: 60 RF: 1 quetiapine [Seroquel] 25 mg tablet 75 mg PO .at bed Qty: 90 RF: 1 trazodone 150 mg tablet 150 mg PO .at bed Qty: 30 RF: 1 quetiapine [Seroquel] 25 mg tablet 12.5 mg PO .in am Qty: 15 RF: 1 donepezil [Aricept] 5 mg tablet 5 mg PO .HS Qty: 30 RF: 1 famotidine 20 mg tablet 20 mg PO Q12H Qty: 60 RF: 2 aspirin 81 mg tablet,delayed release (DR/EC) 81 mg PO DAILY Qty: 30 RF: 2 Vitamin B-12 1,000 mcg tablet 1,000 mcg PO DAILY Qty: 30 RF: 2 yeabgysbahf-yutuhmyjd-wpjsbeoe 100-62.5-25 mcg blister with device 1 inh INHALATION DAILY Qty: 28 RF: 2 folic acid 1 mg tablet 1 mg PO BID Qty: 60 RF: 2 levothyroxine 100 mcg tablet 100 mcg PO DAILY Qty: 30 RF: 2 lisinopril 20 mg tablet 20 mg PO DAILY Qty: 30 RF: 2 docusate sodium [Colace] 100 mg capsule 100 mg PO BID Qty: 60 RF: 2 atorvastatin 20 mg tablet 20 mg PO DAILY Qty: 30 RF: 2 isosorbide mononitrate 30 mg tablet extended release 24 hr 30 mg PO QAM Qty: 30 RF: 2 Hold Instructions: Resume on 07/24/20. if blood pressure allows Vitamin B-1 (mononitrate) 100 mg Tablet 100 mg PO DAILY Qty: 90 RF: 0 ipratropium-albuterol 0.5 mg-3 mg(2.5 mg base)/3 mL Solution For Nebulization 3 ml inhalation Q6H.RESPIRATORY PRN (Reason: Shortness Of Breath) Qty: 3 RF: 1 Discharge Orders: Discharge ED (Routine); Ordered 07/27/20 Ordered By: Wayne Osborn Referrals: Brannon Valladares, SOFTWARE RELIABILITY ENGINEER-C [Primary Care Provider] - Activity Restrictions/Additional Instructions: Increase famotidine to 40 mg twice daily for 7 days. You can use [id number]-bjraewe Benadryl do not recommend using more than 12 and half milligrams every 6 hours due to potential side effects in a patient with established cognitive decline. If he has any worsening difficulty with breathing or increased swelling return to the emergency room. Coding Level of Care Code ED Heel Scourer for Ofelia Rhodes
== END 2020-07-27 11:23 | disposition home or self-care (01) ==
PROVIDERS: Emergency Provider Family Medicine; PCP Nurse Practitioner
DX: T78.40XA Allergy, unspecified, initial encounter (principal); R41.81 Age-related cognitive decline; Z79.82 Long term (current) use of aspirin; J44.9 Chronic obstructive pulmonary disease, unspecified; I25.10 Atherosclerotic heart disease of native coronary artery without angina pectoris; I10 Essential (primary) hypertension; E78.2 Mixed hyperlipidemia; Z87.891 Personal history of nicotine dependence
CPT/HCPCS: 12345; 99281

== ENCOUNTER → 2020-07-30 08:04 | Outpatient (BNVA) | payer MEDICARE, MEDICAID, SELFPAY | PROVIDERS: PCP Nurse Practitioner; Visit Provider Specialist | DX: R44.3 Hallucinations, unspecified (principal); R41.0 Disorientation, unspecified; G92 Toxic encephalopathy; Z87.891 Personal history of nicotine dependence | CPT/HCPCS: 96116; 99205 ==

== ENCOUNTER 2020-07-31 13:59 | Outpatient (CLI) | payer MEDICARE, MEDICAID, SELFPAY ==
--- NOTE | 2020-07-31 14:08 | USCV_ITS ---
Jason Canela Age: 65 Gender: M : 1955 Exam Date: 07/31/2020 14:37 Ordering Phys: Brannon Valladares Technologist: Farheen Spencer Exam Location: [facility] [place] Indication: left leg pain HISTORY: Lower extremity pain. Lower extremity swelling. PROCEDURES: Venous duplex imaging was performed in only the left lower extremity. The following venous structures were evaluated: common femoral vein, profunda vein, proximal portion of the greater saphenous vein, superficial femoral vein, and the popliteal vein. In addition, the posterior tibial and peroneal trunk were evaluated. FINDINGS: Normal 2-D Doppler and augmentation and compressibility throughout the lower extremity venous structures. Additional imaging through the proximal calf veins also reveals no thrombus. Limited evaluation of the greater saphenous vein is patent with no thrombus. CONCLUSIONS No evidence of left lower extremity DVT. Norbert Jacobsen MD (Electronically Signed) Final Date: 01 August 2020 17:59 S
== END 2020-07-31 14:00 | disposition home or self-care (01) ==
LOC: RAD 14:02
PROVIDERS: PCP Nurse Practitioner; Visit Provider Nurse Practitioner
DX: M79.662 Pain in left lower leg (principal)
CPT/HCPCS: 93971

== ENCOUNTER → 2020-08-05 14:48 | Outpatient (BNVA) | payer MEDICARE, MEDICAID, SELFPAY | PROVIDERS: PCP Nurse Practitioner; Visit Provider Specialist | DX: R44.3 Hallucinations, unspecified (principal); G92 Toxic encephalopathy; Z87.891 Personal history of nicotine dependence | CPT/HCPCS: 95816 ==

== ENCOUNTER 2020-08-07 09:25 | Outpatient (CLI) | payer MEDICARE, MEDICAID, SELFPAY ==
--- NOTE | 2020-08-07 09:30 | MR_ITS ---
WS: [id number] MRI BRAIN WITHOUT CONTRAST HISTORY: I63.9 - Cerebral infarction, unspecified COMPARISON: 07/24/2010 MRI and 06/25/[address] TECHNIQUE: Diffusion imaging, multiplanar T1, T2 and FLAIR imaging obtained. No evidence for acute infarct or hemorrhage. [place]-white matter differentiation is normal. Mild bilate ral cerebral atrophy is symmetric. There are numerous T2 and FLAIR signal hyperintensity scattered predominantly throughout the white ma tter and in the subcortical distribution. Very similar to the prior study with only minimal progressi on since 2010. Mild ischemic changes in the cerebellar peduncles. Ventricles and extra-axial spaces are normal. No inferior displacement of cerebellar tonsils. The sella turcica and pituitary gland are unremarkabl e. Posterior fossa is also unremarkable. Dural venous sinuses and [place] demonstrate no abnormality on this unenhanced studies. Paranasal sinuses: Small mucous retention cyst in the floor the LEFT maxillary sinus. Mastoid air cells: Large bilateral mastoid air cell effusions. Calvarium and scalp: Intact. MR/MR head wo con* [id number] IMPRESSION: 1. No evidence for an acute infarct. 2. Moderate T2 and FLAIR signal hyperintensities throughout the brain with min imal progression since 2010. These changes can be seen with chronic microvascul ar ischemic disease, hypertension, diabetes or migraines. 3. Bilateral mastoid air cell effusions.
== END 2020-08-07 09:26 | disposition home or self-care (01) ==
LOC: RADSHAW 09:29
PROVIDERS: PCP Nurse Practitioner; Visit Provider Specialist
DX: I63.9 Cerebral infarction, unspecified (principal)
CPT/HCPCS: 70551

== ENCOUNTER → 2020-08-27 15:02 | Outpatient (BNVA) | payer MEDICARE, MEDICAID, SELFPAY | PROVIDERS: PCP Nurse Practitioner; Visit Provider Nurse Practitioner | DX: I10 Essential (primary) hypertension (principal); E03.8 Other specified hypothyroidism; E78.2 Mixed hyperlipidemia; J06.9 Acute upper respiratory infection, unspecified; Z20.822 Contact with and (suspected) exposure to COVID-19 | CPT/HCPCS: 80053; 80061; 84443; 85025; 87400; 87635 ==

== ENCOUNTER → 2020-09-27 09:02 | Outpatient (BNVA) | payer MEDICARE, MEDICAID, SELFPAY | PROVIDERS: PCP Nurse Practitioner; Visit Provider Nurse Practitioner | DX: E87.6 Hypokalemia (principal); E83.52 Hypercalcemia; E03.8 Other specified hypothyroidism | CPT/HCPCS: 80053; 80178; 81000; 85025 ==

== ENCOUNTER → 2020-10-21 07:36 | Outpatient (BNVA) | payer MEDICARE, MEDICAID, SELFPAY | PROVIDERS: PCP Nurse Practitioner; Visit Provider Nurse Practitioner | DX: F60.3 Borderline personality disorder (principal); F33.2 Major depressive disorder, recurrent severe without psychotic features | CPT/HCPCS: 99214 ==

== ENCOUNTER → 2020-11-12 10:47 | Outpatient (BNVA) | payer MEDICARE, MEDICAID, SELFPAY | PROVIDERS: PCP Nurse Practitioner; Visit Provider Specialist | DX: G92 Toxic encephalopathy (principal); F23 Brief psychotic disorder; Z87.891 Personal history of nicotine dependence | CPT/HCPCS: 96116; 99214 ==

== ENCOUNTER → 2021-01-06 07:48 | Outpatient (BNVA) | payer MEDICARE, MEDICAID, SELFPAY | PROVIDERS: PCP Nurse Practitioner; Visit Provider Nurse Practitioner | DX: F60.3 Borderline personality disorder (principal); F33.2 Major depressive disorder, recurrent severe without psychotic features | CPT/HCPCS: 99214 ==

== ENCOUNTER → 2021-02-24 11:53 | Outpatient (BNVA) | payer MEDICARE, MEDICAID, SELFPAY | PROVIDERS: PCP Nurse Practitioner; Visit Provider Nurse Practitioner Family | DX: F60.3 Borderline personality disorder (principal); F23 Brief psychotic disorder | CPT/HCPCS: 80053; 85025 ==

== ENCOUNTER → 2021-03-03 10:04 | Outpatient (BNVA) | payer MEDICARE, MEDICAID, SELFPAY | PROVIDERS: PCP Nurse Practitioner; Visit Provider Nurse Practitioner | DX: I10 Essential (primary) hypertension (principal); E03.8 Other specified hypothyroidism; E78.2 Mixed hyperlipidemia; R44.3 Hallucinations, unspecified; J44.9 Chronic obstructive pulmonary disease, unspecified; F33.2 Major depressive disorder, recurrent severe without psychotic features | CPT/HCPCS: 80053; 80061; 80178; 81000; 84443; 85025 ==

== ENCOUNTER → 2021-03-20 07:33 | Outpatient (BNVA) | payer MEDICARE, MEDICAID, SELFPAY | PROVIDERS: PCP Nurse Practitioner; Visit Provider Nurse Practitioner | DX: F60.3 Borderline personality disorder (principal); F33.2 Major depressive disorder, recurrent severe without psychotic features | CPT/HCPCS: 99214 ==

== ENCOUNTER → 2021-04-18 11:39 | Outpatient (BNVA) | payer MEDICARE, MEDICAID, SELFPAY | PROVIDERS: PCP Nurse Practitioner; Visit Provider Nurse Practitioner | DX: E03.8 Other specified hypothyroidism (principal) | CPT/HCPCS: 80053; 84443 ==

== ENCOUNTER → 2021-07-17 07:35 | Outpatient (BNVA) | payer MEDICARE, MEDICAID, SELFPAY | PROVIDERS: PCP Nurse Practitioner; Visit Provider Nurse Practitioner | DX: F33.2 Major depressive disorder, recurrent severe without psychotic features (principal); F60.3 Borderline personality disorder | CPT/HCPCS: 99214 ==

== ENCOUNTER → 2021-09-26 11:47 | Outpatient (BNVA) | payer MEDICARE, MEDICAID, SELFPAY | PROVIDERS: PCP Nurse Practitioner; Visit Provider Nurse Practitioner | DX: F33.2 Major depressive disorder, recurrent severe without psychotic features (principal); F60.3 Borderline personality disorder | CPT/HCPCS: 99214 ==

== ENCOUNTER → 2021-11-19 11:52 | Outpatient (BNVA) | payer MEDICARE, MEDICAID, SELFPAY | PROVIDERS: PCP Nurse Practitioner; Visit Provider Nurse Practitioner | DX: E03.8 Other specified hypothyroidism (principal); J44.9 Chronic obstructive pulmonary disease, unspecified; E78.2 Mixed hyperlipidemia; R91.1 Solitary pulmonary nodule; I10 Essential (primary) hypertension; M17.10 Unilateral primary osteoarthritis, unspecified knee; K59.01 Slow transit constipation; K21.00 Gastro-esophageal reflux disease with esophagitis, without bleeding; R09.82 Postnasal drip; E53.9 Vitamin B deficiency, unspecified | CPT/HCPCS: 80053; 80061; 84443; 85025 ==

== ENCOUNTER 2021-12-26 09:06 | Outpatient (CLI) | payer MEDICARE, MEDICAID, SELFPAY ==
--- NOTE | 2021-12-26 09:00 | CT_ITS ---
WS: [id number] CT CHEST TECHNIQUE: Noncontrast CT of the chest with coronal and sagittal reformatted images. CLINICAL INFORMATION: R91.1 - Solitary pulmonary nodule COMPARISON: CT chest June 25, 2020 DLP: 799.[address] scans at [facility] use at least one of these dose optimization techniques: automated e xposure control; mA and/or kV adjustment per patient size (includes targeted exams where dose is matc hed to clinical indication); or iterative reconstruction. FINDINGS: Lungs are well aerated. Slight bibasilar atelectasis. Calcified granuloma LEFT lower lobe. Hypertrophic changes thoracic spine. Previously described noncalcified nodule along the RIGHT minor f issure measuring 8 mm is unchanged. No new suspicious pulmonary parenchymal abnormalities. Mild aortic calcification. Normal caliber thoracic aorta. Coronary calcification. No mediastinal or h ilar lymphadenopathy. Adrenal glands are normal. Normal GE junction. Fatty atrophy of the pancreas. P rominent lymph nodes bilateral axilla were present previously and appear slightly more numerous and p rominent today. CT/CT chest wo con [id number] IMPRESSION: 1. Previously described nodule along the RIGHT minor fissure measuring 8 mm is unchanged. 2. Lungs are well aerated. Slight bibasilar atelectasis. 3. No mediastinal or hilar lymphadenopathy. 4. Numerous prominent bilateral axillary lymph nodes nonspecific but may be re active. Recommend clinical correlation. 5. No other significant changes compared to previous.
== END 2021-12-26 09:07 | disposition home or self-care (01) ==
LOC: RAD 09:09
PROVIDERS: PCP Nurse Practitioner; Visit Provider Nurse Practitioner
DX: J44.9 Chronic obstructive pulmonary disease, unspecified (principal); R91.1 Solitary pulmonary nodule
CPT/HCPCS: 71250

== ENCOUNTER → 2021-12-29 09:39 | Outpatient (BNVA) | payer MEDICARE, MEDICAID, SELFPAY | PROVIDERS: PCP Nurse Practitioner; Visit Provider Nurse Practitioner | DX: Z79.899 Other long term (current) drug therapy (principal); F33.2 Major depressive disorder, recurrent severe without psychotic features; F60.3 Borderline personality disorder | CPT/HCPCS: 99214 ==

== ENCOUNTER → 2022-03-19 11:43 | Outpatient (BNVA) | payer MEDICARE, MEDICAID, OTHER, SELFPAY | PROVIDERS: PCP Nurse Practitioner; Visit Provider Nurse Practitioner | DX: I10 Essential (primary) hypertension (principal); E78.2 Mixed hyperlipidemia; M17.10 Unilateral primary osteoarthritis, unspecified knee; K59.01 Slow transit constipation; K21.00 Gastro-esophageal reflux disease with esophagitis, without bleeding; R09.82 Postnasal drip; J44.9 Chronic obstructive pulmonary disease, unspecified; E53.9 Vitamin B deficiency, unspecified; E03.8 Other specified hypothyroidism; Z79.899 Other long term (current) drug therapy | CPT/HCPCS: 80053; 80061; 80178; 82607; 84443; 85025 ==

== ENCOUNTER 2022-06-30 14:28 | Emergency (ER) | payer MEDICARE, MEDICAID, SELFPAY ==
[2022-06-30] VITALS (7 sets, daily range): BP systolic 171–196; BP diastolic 100–119; PULSE 89–104; RESP 17–20; TEMP 36.9–37.1; O2SAT 93–96; BMI 35.9
--- NOTE | 2022-06-30 15:31 | ECG_ITS ---
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 Measurements Intervals [place] Rate: 101 P: 23 MA: 166 QRS: 83 QRSD: 113 T: 27 QT: 347 QTc: 450 Interpretive Statements SINUS TACHYCARDIA INCOMPLETE RIGHT BUNDLE BRANCH BLOCK [90+ ms QRS DURATION, TERMINAL R IN V1/V2, 40+ ms S IN I/aVL/V4/V5/V6] ABNORMAL RHYTHM ECG Compared to ECG 07/03/2020 12:10:33 Incomplete right bundle-branch block now present Sinus bradycardia no longer present Intraventricular conduction delay no longer present Electronically Signed On 07-01-2022 0:04:45 PATIENT CARE by Bobo Keller M.D. [id number]
--- NOTE | 2022-06-30 15:31 | XR_ITS ---
WS: [id number] Chest 2 views, 06/30/2022 Clinical Data: shortness of breath Comparison: Portable chest, 06/23/2020. Findings: No nodules, masses or effusions are seen. The heart is normal. The pulmonary vascularity is not increased. No pneumonia or pneumothorax is seen. The aortic arch and descending thoracic aorta s how tortuosity. XR/XR chest 2V* [id number] Impression: Atherosclerosis.
[2022-06-30] MEDS: lisinopril 20 mg Tablet 40 MG PO (15:40)
[2022-06-30] MEDS: hyDRALAzine 25 mg Tablet PO (15:40)
[2022-06-30] MEDS: albuterol 2.5 mg/3 mL Neb INHALATION (16:04)
[2022-06-30] MEDS: HYDROcodone-acetaminophen 5-325 mg Tablet 1 TAB PO (16:32)
--- NOTE | 2022-06-30 16:52 | PC.NURSE ---
pt and pt's daughter states that pt BP stays high. They state that 172/107 is normal for him.
[2022-06-30 17:21] LABS: Influenza A by IFA Positive (Negative); Influenza B by IFA Negative (Negative)
[2022-06-30] MEDS: oseltamivir phosphate 75 mg Capsule PO (18:06)
--- NOTE | 2022-06-30 18:32 | ED_ITS ---
HPI - URI/Sore Throat General: Chief Complaint: Upper Respiratory Infection Stated Complaint: SOB, cough Time Seen by Provider: 06/30/22 15:01 History of Present Illness: Patient is in today for shortness of breath, chest pain with deep breathing, feverish feeling, chills. He reports that this symptoms have been going ongoing for 2 days and seemingly worse. Associated symptoms: Reports chills, chest pain (With deep inspiration and with coughing), fever(s), headache(s) and nasal congestion; Deny abdominal pain, nausea or vomiting Review of Systems Const: Reports: fever(s), chills, body aches and fatigue ENMT: Reports: nasal discharge, nasal congestion and post nasal drip Card: Reports: chest pain (With deep inspiration and with coughing); Denies: palpitations Resp: Reports: dyspnea, non-productive cough and wheezing GI: Denies: abdominal pain, nausea or vomiting : Denies: flank pain, dysuria or urinary frequency Neuro: Reports: headache(s); Denies: numbness in extremities, weakness in extremities, sensory changes or lack of coordination PFSH ED PFSH: Medical History Adult onset hypothyroidism Alcohol dependence, in remission Borderline personality disorder COPD with chronic bronchitis and emphysema Coronary artery disease Fibromyalgia GERD with esophagitis History of tobacco abuse Hypercalcemia Hypertension Swisher use Major depressive disorder, recurrent severe without psychotic features Mixed hyperlipidemia Nicotine dependence, cigarettes, uncomplicated Osteoarthritis, knee Vitamin B deficiency Surgical History History of ankle surgery Left ORIF History of removal of cyst Back Family History Other Cancer Diabetes Hypertension Psychiatric illness Social History Smoking and tobacco status: former smoker Quit status (tobacco): has quit using tobacco Year quit tobacco: 1-2 yrs ago Second hand smoke exposure: No Smoking risk assessment/counseling performed?: Yes Tobacco counseling given: counseling >3 minutes Alcohol intake: former Desire information about alcohol rehabilitation?: No Counseling given: No Desire information about substance/drug rehabilitation?: No Counseling given: No Adopted: No Caregiver/support person: No Lives independently: No Household members: caregiver Housing: Manufactured/Mobile home Marital status: Number of children: 2 service: No Current occupational status: disabled History of recent travel: No Current gender identity: Male Physical Exam Const: COMMON NORMALS: no acute distress, patient oriented x3 and alert HENMT: COMMON NORMALS: TM's normal bilaterally NOSE: Nasal discharge present clear TYMPANIC MEMBRANE: TM's normal bilaterally THROAT: uvula midline and postnasal drainage Neck/C-Spine: COMMON NORMALS: no JVD Resp: COMMON NORMALS: No use of accessory muscles EFFORT & INSPECTION: Yes tachypneic (Patient is tachypneic on initial exam) OTHER: Patient with inspiratory expiratory wheezes on initial exam. Albuterol nebulized treatment ordered and patient reports improvement after treatment. Cardio: COMMON NORMALS: no JVD, regular rate, regular rhythm, S1 normal heart sound present, S2 normal heart sound present and No murmurs present (Cardio) RATE: regular rate RHYTHM: regular rhythm HEART SOUNDS: S1 normal heart sound present and S2 normal heart sound present Neuro: COMMON NORMALS: patient oriented x3, CN's II-XII intact bilaterally and moves all extremities SENSORIUM/ORIENTATION: Yes alert Course Vital Signs: Vital signs: Vital Signs Temperature 98.8 F 06/30/22 15:34 Pulse Rate 101 H 06/30/22 18:09 Respiratory Rate 17 06/30/22 18:09 Blood Pressure 183/113 06/30/22 18:09 Pulse Oximetry 93 06/30/22 18:09 Oxygen Delivery Me thod 06/30/22 18:09 MDM - URI/Sore Throat Medical Decision Making Consider upper respiratory infection, influenza, COVID-19, cardiac etiology, pneumonia Chest x-ray shows atherosclerosis Positive for influenza A Patient responded well to albuterol nebulized treatment. Physical exam findings are consistent with thrush which patient reports not rinsing his mouth and spitting after using his inhaled steroids at home. We will treat thrush. Provide patient with Tamiflu for influenza. Discussed possible benefits and side effects of the medication. Patient discharged to home in stable condition. His blood pressure has been relatively high throughout his course of stay in the ER today. He reports that he consistently runs very high at home and has not taken his antihypertensive medications today. He was given his hydralazine and lisinopril x1 dose and here blood pressure did decrease down to the 170s systolic. Patient does report chest pain with deep inspiration and coughing however he denies any other chest pain, visual disturbance or other neurologic changes. He reports that he is aware of signs and symptoms of heart attack and/or stroke and will return to the ER should he notice any of these. Patient reports that he would like to be discharged home at this time. Advised him to follow-up with PCP. Return to the ER for new or worsening symptoms. Lab Data Radiology Impressions Chest X-Ray 06/30/22 15:31 Impression: Atherosclerosis. Laboratory Results Influenza Type A Ag Positive (Negative) H 06/30/22 16:11 Influenza Type B Ag Negative (Negative) 06/30/22 16:11 Discharge Plan Discharge Patient Disposition: Home Clinical Impression: Influenza A, COPD with chronic bronchitis and emphysema, Thrush Condition: Stable Prescriptions: New nystatin 100,000 unit/mL suspension 4 ml mucous membrane QID 7 Days Qty: 112 0RF Rx Instructions: Swish for several minutes then swallow Tamiflu 75 mg capsule 75 mg PO BID 5 Days Qty: 9 0RF Rx Instructions: start 07/01/22 No Action metoprolol tartrate 25 mg tablet 12.5 mg PO BID Qty: 90 3RF Hold Instructions: Resume on 07/12/20. if blood pressure and HR allow diazepam [Valium] 10 mg tablet 10 mg PO BID PRN (Reason: anxiety) Qty: 2 0RF melatonin 3 mg capsule 3 mg PO DAILY Vitamin B-12 1,000 mcg tablet 1,000 mcg PO DAILY Qty: 30 2RF Hold Instructions: Doctor's Order hydrocodone-acetaminophen 10-325 mg tablet 1 tab PO .up to 6x daily amlodipine [Norvasc] 5 mg tablet 5 mg PO DAILY Qty: 30 2RF atorvastatin 20 mg tablet 20 mg PO DAILY Qty: 30 2RF celecoxib [Celebrex] 100 mg capsule 100 mg PO BID Qty: 60 2RF hydralazine 25 mg tablet 25 mg PO BID Qty: 60 2RF docusate sodium [Colace] 100 mg capsule 100 mg PO BID PRN (Reason: constipation) Qty: 60 2RF famotidine 20 mg tablet 20 mg PO Q12H Qty: 60 2RF fluticasone propionate [Flonase Allergy Relief] 50 mcg/actuation spray,suspension 1 spray intranasal Q12H Qty: 16 2RF Rx Instructions: administer into each nostril [id number] 100-62.5-25 mcg blister with device 1 inh INHALATION DAILY Qty: 28 2RF folic acid 1 mg tablet 1 mg PO BID Qty: 60 2RF furosemide [Lasix] 20 mg tablet See Rx Instructions PO QAM Qty: 45 2RF Rx Instructions: 40mg for 3 days then 20mg daily PO every morning; isosorbide mononitrate 30 mg tablet extended release 24 hr 30 mg PO QAM Qty: 30 2RF Hold Instructions: Resume on 07/24/20. if blood pressure allows levothyroxine 125 mcg tablet 125 mcg PO DAILY Qty: 30 2RF lisinopril 40 mg tablet 40 mg PO DAILY Qty: 30 2RF donepezil [Aricept] 5 mg tablet 5 mg PO .HS Qty: 30 1RF lithium carbonate 300 mg capsule 300 mg PO DAILY Qty: 30 1RF quetiapine [Seroquel] 25 mg tablet See Rx Instructions PO .at bed Qty: 115 1RF Rx Instructions: 1/2 tab in the am and 3 tablets at bedtime trazodone 150 mg tablet 150 mg PO .at bed Qty: 30 1RF aspirin 81 mg tablet,delayed release (DR/EC) 81 mg PO DAILY Qty: 30 2RF Vitamin B-1 (mononitrate) 100 mg Tablet 100 mg PO DAILY Qty: 90 0RF Hold Instructions: Doctor's Order ipratropium-albuterol 0.5 mg-3 mg(2.5 mg base)/3 mL Solution For Nebulization 3 ml inhalation Q6H.RESPIRATORY PRN (Reason: Shortness Of Breath) Qty: 3 1RF Discharge Orders: Discharge ED (Routine); Ordered 06/30/22 Ordered By: Edna Church Referrals: Brannon Valladares, APPLICATIONS ENGINEER-C [Primary Care Provider] - Discharge Diet: Usual diet Discharge Activity: Increase activity as tolerated Patient Instructions: Influenza (ED), Thrush - Adult Activity Restrictions/Additional Instructions: Make sure that you are staying rested and well-hydrated. Take Tamiflu as prescribed starting tomorrow. Use nystatin swish and swallow to help with oral yeast infection. Make sure that you are rinsing your mouth out each time after using your steroid inhaler. Continue using your inhalers as previously prescribed. Follow-up with your primary care provider as needed. Return to the ER for new or worsening symptoms. Coding Level of Care Code ED Gerontological Nurse Practitioner for Ofelia Rhodes
== END 2022-06-30 18:09 | disposition home or self-care (01) ==
PROVIDERS: Emergency Provider Nurse Practitioner Family; PCP Nurse Practitioner
DX: J44.9 Chronic obstructive pulmonary disease, unspecified (principal); J10.1 Influenza due to other identified influenza virus with other respiratory manifestations; B37.9 Candidiasis, unspecified; Z79.82 Long term (current) use of aspirin; Z87.891 Personal history of nicotine dependence; I25.10 Atherosclerotic heart disease of native coronary artery without angina pectoris; I10 Essential (primary) hypertension; E78.2 Mixed hyperlipidemia
CPT/HCPCS: 71046; 87804; 93005; 94640; 99284; J7613

== ENCOUNTER → 2022-09-14 11:41 | Outpatient (BNVA) | payer MEDICARE, MEDICAID, SELFPAY | PROVIDERS: PCP Nurse Practitioner; Visit Provider Nurse Practitioner | DX: I10 Essential (primary) hypertension (principal); E78.2 Mixed hyperlipidemia; M17.10 Unilateral primary osteoarthritis, unspecified knee; K21.00 Gastro-esophageal reflux disease with esophagitis, without bleeding; K59.01 Slow transit constipation; J44.9 Chronic obstructive pulmonary disease, unspecified; R09.82 Postnasal drip; E03.8 Other specified hypothyroidism; E53.9 Vitamin B deficiency, unspecified; Z12.5 Encounter for screening for malignant neoplasm of prostate; I70.90 Unspecified atherosclerosis | CPT/HCPCS: 80053; 80061; 85025; G0103 ==

== ENCOUNTER 2022-09-16 09:24 | Outpatient (CLI) | payer MEDICARE, MEDICAID, SELFPAY ==
--- NOTE | 2022-09-16 09:34 | XR_ITS ---
WS: [id number] XR chest 2V* [id number] REASON FOR EXAM: I70.90 - Unspecified atherosclerosis FINDINGS: Moderate tortuosity of the thoracic aorta without aneurysmal dilatation. Normal heart size. Calcified granulomatous disease in both hemithoraces. No active pulmonary parenchymal or pleural disease. Significant changes of degenerative spondylosis in the mid and lower thoracic spine. XR/XR chest 2V* [id number] IMPRESSION: No acute cardiopulmonary disease. Stable chest compared to 06/30/2022.
== END 2022-09-16 09:25 | disposition home or self-care (01) ==
LOC: RAD 09:28
PROVIDERS: PCP Nurse Practitioner; Visit Provider Nurse Practitioner
DX: I70.90 Unspecified atherosclerosis (principal)
CPT/HCPCS: 71046

== ENCOUNTER → 2023-03-09 10:42 | Outpatient (BNVA) | payer MEDICARE, MEDICAID, SELFPAY | PROVIDERS: PCP Nurse Practitioner; Visit Provider Nurse Practitioner | DX: J44.9 Chronic obstructive pulmonary disease, unspecified (principal); I10 Essential (primary) hypertension; E78.2 Mixed hyperlipidemia; M17.10 Unilateral primary osteoarthritis, unspecified knee; K59.01 Slow transit constipation; K21.00 Gastro-esophageal reflux disease with esophagitis, without bleeding; R09.82 Postnasal drip; E53.9 Vitamin B deficiency, unspecified; E03.8 Other specified hypothyroidism; E55.9 Vitamin D deficiency, unspecified | CPT/HCPCS: 80053; 80061; 82306; 82607; 84443 ==

== ENCOUNTER 2023-07-14 10:36 | Emergency (ER) | payer MEDICARE, MEDICAID, SELFPAY ==
[2023-07-14] VITALS (8 sets, daily range): BP systolic 151–175; BP diastolic 96–120; PULSE 64–88; RESP 14–21; O2SAT 10–98; BMI 35.2
--- NOTE | 2023-07-14 10:38 | ECG_ITS ---
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 Measurements Intervals [place] Rate: 63 P: 60 [place]: 187 QRS: -18 QRSD: 122 T: 27 QT: 416 QTc: 426 Interpretive Statements SINUS RHYTHM MODERATE INTRAVENTRICULAR CONDUCTION DELAY [110+ ms QRS DURATION] MODERATE VOLTAGE CRITERIA FOR LVH, CONSIDER NORMAL VARIANT [MEETS CRITERIA IN ONE OF: R(aVL), S(V1), R(V5), R(V5/V6)+S(V1)] Compared to ECG 06/30/2022 16:36:03 Intraventricular conduction delay now present Sinus tachycardia no longer present Incomplete right bundle-branch block no longer present Electronically Signed On 07-14-2023 11:10:52 EMBEDDED SOFTWARE ENGINEER by Kelton Holliday M.D. [id number]
--- NOTE | 2023-07-14 10:44 | XRR_ITS ---
PROCEDURE INFORMATION: Exam: XR Chest Exam date and time: 07/14/2023 10:53 AM Age: 68 years old Clinical indication: Pain; Angina pectoris; Additional info: Chest pain TECHNIQUE: Imaging protocol: Radiologic exam of the chest. Views: 1 view. COMPARISON: CR XR chest 2V* [id number] 09/16/2022 9:35 AM FINDINGS: Lungs: No focal consolidation. Indistinct central interstitial markings. Pleural spaces: There is no pleural effusion or pneumothorax. Heart/Mediastinum: The cardiac silhouette is within normal limits of size given AP technique. Bones/joints: There is severe degenerative disease of the left shoulder. XR/XR chest 1V portable [id number] IMPRESSION: Indistinct central interstitial markings. Possible interstitial edema. Atypical infection not excluded.
--- NOTE | 2023-07-14 10:55 | ED_ITS ---
HPI - Chest Pain 2 General: Chief Complaint: Chest Pain Stated Complaint: Chest pain/ Abd Pain Time Seen by Provider: 07/14/23 10:37 Source: patient Mode of arrival: EMS History of Present Illness: 68-year-old male presents to the emergen cy room with complaint of chest pain. Chest pain is finally began while at rest. He states he has a history of heart disease but he is never had a stress test angiogram or bypass. He states he does not want to have one he did get relief of chest pain while in route after he did relieve received nitro and did get somewhat sick to his stomach and short of breath but he states he is chronically short of breath he is a past smoker he has a history of COPD but he is not on any oxygen on a regular basis he initially arrived he was on 3 L this was stopped and his sats remained in the 94 to 95% range MD complaint: chest pain Pertinent past history: coronary artery disease Timing of current episode: episodic Onset: during rest Pain location: substernal Pain radiation: none Severity: moderate Quality: aching and heaviness Relieving factors: nothing Exacerbating factors: nothing Associated symptoms: Deny abdominal pain, diaphoresis, dyspnea, fever(s), leg edema, nausea, palpitations, sense of impending doom, syncope or vomiting Review of Systems 2 Const: Denies: fever(s), chills or diaphoresis Card: Denies: chest pain, palpitations or syncope Resp: Denies: dyspnea GI: Denies: abdominal pain, nausea or vomiting : Denies: dysuria, urinary frequency or urinary urgency Musc: Denies: neck pain or back pain Skin/Breast: Denies: rash PFSH ED 2 PFSH: Medical History Dementia [place] use Osteoarthritis, knee Vitamin B deficiency Hypercalcemia Coronary artery disease History of tobacco abuse GERD with esophagitis Mixed hyperlipidemia Fibromyalgia Hypertension Adult onset hypothyroidism COPD with chronic bronchitis and emphysema Nicotine dependence, cigarettes, uncomplicated Borderline personality disorder Alcohol dependence, in remission Major depressive disorder, recurrent severe without psychotic features Surgical History History of removal of cyst Back History of ankle surgery Left ORIF Family History Other Cancer Diabetes Hypertension Psychiatric illness Social History Smoking and tobacco/nicotine status: former use of tobacco/nicotine Quit status (tobacco/nicotine): has quit using Year quit tobacco: 1-2 yrs ago Second hand smoke exposure: No Alcohol intake: former Substance/Drug Use: unknown Adopted: No Caregiver/support person: No Lives independently: No Household members: caregiver Housing: Manufactured/Mobile home Marital status: Number of children: 2 service: No Current occupational status: disabled Do you think of yourself as: Straight/Heterosexual Current gender identity: Male Physical Exam 2 Const: COMMON NORMALS: no acute distress GENERAL APPEARANCE: cooperative and comfortable ORIENTATION/CONSCIOUSNESS: Yes awake, Yes oriented to person, Yes oriented to place and Yes oriented to time HENMT: COMMON NORMALS: normocephalic, atraumatic and hearing grossly normal bilaterally HEAD & SCALP: normocephalic and atraumatic Resp: COMMON NORMALS: normal respiratory effort, No retractions, No use of accessory muscles and clear to auscultation bilaterally AUSCULTATION: clear to auscultation bilaterally Cardio: COMMON NORMALS: regular rate, regular rhythm and No murmurs present (Cardio) RATE: regular rate RHYTHM: regular rhythm GI: COMMON NORMALS: Soft to palpation and No hepatosplenomegaly present A USCULTATION: Yes normoactive bowel sounds PALPATION: Yes Soft to palpation, No Tenderness to palpation present (GI), No Guarding due to palpation present (GI) and Yes No hepatosplenomegaly present Extremity: COMMON NORMALS: normal to inspection, capillary refill normal, no clubbing, cyanosis or edema, no calf tenderness and no pedal edema Neuro: SENSORIUM/ORIENTATION: Yes oriented to person, Yes oriented to place and Yes oriented to time Skin: COMMON NORMALS: no rashes or lesions noted GENERAL SKIN EXAM: no rashes or lesions noted Course 2 Vital Signs: Vital signs: Vital Signs Pulse Rate 68 07/14/23 13:47 Respiratory Rate 15 07/14/23 13:47 Blood Pressure 165/120 07/14/23 13:47 Pulse Oximetry 96 07/14/23 13:47 Oxygen Delivery Me thod Nasal Cannula 07/14/23 13:47 Oxygen Flow Rate 3 07/14/23 13:47 MDM - Chest Pain Medical Decision Making Labs and imaging reviewed EKG does not show any acute ST changes. No ST depression no ST elevation rate of 64 slightly prolonged CO interval at 204. Troponins negative. Patient does not wish to have any further testing done he states he has had stress test before in the past he does not want another nor does he want an angiogram. This point does not appear to have acute coronary syndrome his blood pressure has improved with his regular home medications given. Will add the isosorbide and the hydralazine prior to discharge continue same medications as previous follow-up with primary care. Medical Records I reviewed the patient's medical records. Lab Data I reviewed the patient's lab results. 07/14/23 10:58 07/14/23 10:58 Radiology Impressions Chest X-Ray 07/14/23 10:44 IMPRESSION: Indistinct central interstitial markings. Possible interstitial edema. Atypical infection not excluded. Laboratory Results WBC 1.98 10^3/uL (3.29-11.43) L 07/14/23 10:58 RBC 4.75 10^6/uL (3.85-5.65) 07/14/23 10:58 Hgb 14.30 g/dL (11.27-16.99) 07/14/23 10:58 Hct 44.3 % (37-53) 07/14/23 10:58 MCV 93.3 fl (82-101) 07/14/23 10:58 MCH 30.1 pg (27-33) 07/14/23 10:58 MCHC 32.3 g/dL (30-55) 07/14/23 10:58 RDW 11.9 % (12.1-15.1) L 07/14/23 10:58 Plt Count 215 10^3/cmm (157-399) 07/14/23 10:58 MPV 9.5 fL (7.4-10.4) 07/14/23 10:58 Neut % (Auto) 57.6 % 07/14/23 10:58 Lymph % (Auto) 25.8 % 07/14/23 10:58 [place] % (Auto) 13.6 % 07/14/23 10:58 Eos % (Auto) 1.5 % 07/14/23 10:58 Baso % (Auto) 1.0 % 07/14/23 10:58 Neut # (Auto) 1.14 10^3/uL (1.8-7.7) L 07/14/23 10:58 Lymph # (Auto) 0.5 10^3/uL (0.8-4.8) L 07/14/23 10:58 [place] # (Auto) 0.3 10^3/uL (0.2-0.9) 07/14/23 10:58 Eos # (Auto) 0.0 10^3/uL (0.0-0.8) 07/14/23 10:58 Baso # (Auto) 0.0 10^3/uL (0.0-0.1) 07/14/23 10:58 Nucleated RBC % (auto) 0 % 07/14/23 10:58 Nucleated RBCs # 0.0 /100WBC 07/14/23 10:58 Sodium 137 mmol/L (136-145) 07/14/23 10:58 Potassium 4.1 mmol/L (3.5-5.1) 07/14/23 10:58 Chloride 104 mmol/L (98-107) 07/14/23 10:58 Carbon Dioxide 24 mmol/L (22-29) 07/14/23 10:58 Anion Gap 13.1 (5-19) 07/14/23 10:58 BUN 9 mg/dL (8-23) 07/14/23 10:58 Creatinine 0.9 mg/dL (0.7-1.2) 07/14/23 10:58 GFR Calculation 84.2 mL/min (90-130) L 07/14/23 10:58 Glucose 94 mg/dL (65-115) 07/14/23 10:58 Calculated Osmolality 282 mOsm/kg (285-295) L 07/14/23 10:58 Calcium 10.1 mg/dL (8.5-10.5) 07/14/23 10:58 Total Bilirubin 0.9 mg/dL (0.15-1.2) 07/14/23 10:58 AST 19 U/L (0-40) 07/14/23 10:58 ALT 15 U/L (0-41) 07/14/23 10:58 Alkaline Phosphatase 82 U/L (40-130) 07/14/23 10:58 Troponin T Baseline 10 ng/L (0-15) 07/14/23 10:58 Troponin T 120 Minute 8.62 ng/L (0-15) 07/14/23 13:11 Delta Troponin T -1.38 ABS# (0-10) L 07/14/23 13:11 Total Protein 7.5 g/dL (6.6-8.7) 07/14/23 10:58 Albumin 4.3 g/dL (3.5-5.2) 07/14/23 10:58 Globulin 3.2 g/dL (1.3-4.6) 07/14/23 10:58 Lipase 25 U/L (13-60) 07/14/23 10:58 Urine Color Yellow (Yellow) 07/14/23 11:16 Urine Appearance Clear (CLEAR) 07/14/23 11:16 Urine pH 8 (5-7) H 07/14/23 11:16 Ur Specific [place] 1.010 (1.005-1.030) 07/14/23 11:16 Urine Protein Neg (Negative) 07/14/23 11:16 Urine Glucose (UA) Norm (Normal) 07/14/23 11:16 Urine Ketones Negative (Negative) 07/14/23 11:16 Urine Blood Neg (Negative) 07/14/23 11:16 Urine Nitrate Negative (Negative) 07/14/23 11:16 Urine Bilirubin Neg (Negative) 07/14/23 11:16 Prot Sulfosalicylic Acd Negative (Negative) 07/14/23 11:16 Urine Urobilinogen Norm mg/dL (Negative) 07/14/23 11:16 Ur Leukocyte Esterase Negative (Negative) 07/14/23 11:16 All radiology interpretation(s) finalized by discharge Discharge Plan Discharge Patient Disposition: Home Clinical Impression: Atypical chest pain Hypertension Qualifiers: Hypertension type: essential hypertension Qualified Code(s): I10 - Essential (primary) hypertension Condition: Stable Prescriptions: No Action hydrocodone-acetaminophen 10-325 mg tablet 1 tab PO QID PRN (Reason: Pain) amlodipine [Norvasc] 5 mg tablet 5 mg PO DAILY Qty: 30 2RF aspirin 81 mg tablet,delayed release (DR/EC) 81 mg PO DAILY Qty: 30 2RF Breztri Aerosphere 160-9-4.8 mcg/actuation HFA aerosol inhaler 2 inh inhalation BID Qty: 10.7 2RF celecoxib [Celebrex] 100 mg capsule 100 mg PO BID Qty: 60 2RF fluticasone propionate [Flonase Allergy Relief] 50 mcg/actuation spray,suspension 1 spray intranasal Q12H Qty: 16 2RF Rx Instructions: administer into each nostril folic acid 1 mg tablet 1 mg PO BID Qty: 60 2RF furosemide [Lasix] 20 mg tablet 20 mg PO QAM Qty: 30 2RF hydralazine 50 mg tablet 50 mg PO BID Qty: 60 2RF isosorbide mononitrate 60 mg tablet extended release 24 hr 60 mg PO QAM Qty: 30 2RF Hold Instructions: Resume on 07/24/20. if blood pressure allows levothyroxine 125 mcg tablet 125 mcg PO DAILY Qty: 30 2RF lisinopril 40 mg tablet 40 mg PO DAILY Qty: 30 2RF quetiapine 25 mg tablet See Rx Instructions .ROUTE .COMPLEX Qty: 115 2RF Dose Instruction: TAKE 1/2 TABLET BY MOUTH IN THE MORNING AND TAKE THREE TABLETS AT BEDTIME Rx Instructions: TAKE 1/2 TABLET BY MOUTH IN THE MORNING AND TAKE THREE TABLETS AT BEDTIME atorvastatin 20 mg tablet 20 mg PO QPM Aricept 5 mg tablet 5 mg PO QPM famotidine 20 mg tablet 20 mg PO BID lithium carbonate 300 mg capsule 300 mg PO DAILY trazodone 150 mg tablet 150 mg PO BEDTIME Colace 100 mg capsule 100 mg PO BID Discharge Orders: Discharge ED (Routine); Ordered 07/14/23 Ordered By: Wayne Osborn Referrals: Brannon Valladares, [employer] [Primary Care Provider] - Discharge Diet: Usual diet Discharge Activity: Increase activity as tolerated Patient Instructions: Opioid Safety, Pain Management Activity Restrictions/Additional Instructions: Thank you for choosing [facility] for your healthcare needs today. Please realize this is an emergency room and that we are providing you with a medical screening exam and this may not be complete and all inclusive of all the testing and or work up that you may need to determine your ailment or severity of your illness. It is very important that you follow up as instructed or that you return to the Emergency Department should you have concerns or if your condition changes or worsens in any way. Follow-up with your primary care doctor within the next week Coding Level of Care Code ED Maintenance Construction Helper for Ofelia Rhodes
[2023-07-14 11:05] LABS: Eosinophils % 1.5 %; Hematocrit 44.3 % (37-53); Lymphocytes # 0.5 10^3/uL (0.8-4.8); Lymphocytes % 25.8 %; Mean Corpuscular HGB Conc 32.3 g/dL (30-55); Mean Corpuscular Hemoglobin 30.1 pg (27-33); Mean Corpuscular Volume 93.3 fl (82-101); Mean Platelet Volume 9.5 fL (7.4-10.4); Monocytes # 0.3 10^3/uL (0.2-0.9); Monocytes % 13.6 %; Neutrophils # 1.14 10^3/uL (1.8-7.7); Neutrophils % 57.6 %; Nucleated Red Blood Cells % 0 %; Platelet Count 215 10^3/cmm (157-399); Red Blood Count 4.75 10^6/uL (3.85-5.65); Red Cell Distribution Width 11.9 % (12.1-15.1); White Blood Count 1.98 10^3/uL (3.29-11.43)
[2023-07-14 11:22] LABS: Alanine Aminotransferase 15 U/L (0-41); Albumin Level 4.3 g/dL (3.5-5.2); Alkaline Phosphatase 82 U/L (40-130); Blood Urea Nitrogen 9 mg/dL (8-23); Calcium 10.1 mg/dL (8.5-10.5); Carbon Dioxide 24 mmol/L (22-29); Chloride 104 mmol/L (98-107); Globulin 3.2 g/dL (1.3-4.6); Glomerular Filtration Rate 84.2 mL/min (90-130); Glucose 94 mg/dL (65-115); Lipase 25 U/L (13-60); Osmolality Calculated 282 mOsm/kg (285-295); Sodium 137 mmol/L (136-145); Total Bilirubin 0.9 mg/dL (0.15-1.2); Total Protein 7.5 g/dL (6.6-8.7)
[2023-07-14 11:22] LABS: Add Urine Microscopic? NO; Charge for UA Resulting for Rev
[2023-07-14 11:23] LABS: Troponin(5th) Baseline 10 ng/L (0-15)
[2023-07-14 11:25] LABS: Anion Gap 13.1 (5-19); Aspartate Amino Transferase 19 U/L (0-40); Potassium 4.1 mmol/L (3.5-5.1)
[2023-07-14 11:35] LABS: Bilirubin Urine Neg (Negative); Blood Urine Neg (Negative); Glucose Urine UA Norm (Normal); Ketones Urine Negative (Negative); Leukocyte Esterase Urine Negative (Negative); Nitrate Urine Negative (Negative); Protein Urine Neg (Negative); Sulfosalicylic Acid Urine Negative (Negative); Urine Appearance Clear (CLEAR); Urine Color Yellow (Yellow); Urobilinogen Urine Norm (Negative); pH Urine 8 (5-7)
--- NOTE | 2023-07-14 12:43 | ECG_ITS ---
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 Measurements Intervals [place] Rate: 64 P: 50 MN: 204 QRS: -17 QRSD: 120 T: 26 QT: 421 QTc: 437 Interpretive Statements SINUS RHYTHM MODERATE INTRAVENTRICULAR CONDUCTION DELAY [110+ ms QRS DURATION] MINIMAL VOLTAGE CRITERIA FOR LVH, CONSIDER NORMAL VARIANT [MEETS CRITERIA IN ONE OF: R(aVL), S(V1), R(V5), R(V5/V6)+S(V1)] Compared to ECG 07/14/2023 10:50:12 No significant changes Electronically Signed On 07-14-2023 13:57:09 TRAVEL WRITER by Kelton Holliday M.D. [id number]
[2023-07-14] MEDS: lisinopril 20 mg Tablet 40 MG PO (13:42)
[2023-07-14] MEDS: amlodipine 5 mg Tablet PO (13:43)
[2023-07-14] MEDS: FUROsemide 20 mg Tablet PO (13:43)
[2023-07-14] MEDS: hyDRALAzine 20 mg/mL INJ 1 mL IVP (13:45)
[2023-07-14 14:01] LABS: Troponin 5 2HR 8.62 ng/L (0-15)
[2023-07-14 14:02] LABS: Troponin 5 2HR Delta -1.38 ABS# (0-10)
[2023-07-14] MEDS: isosorbide mononitrate ER 60 mg Tablet PO (14:16)
[2023-07-14] MEDS: hyDRALAzine 25 mg Tablet 50 MG PO (14:16)
== END 2023-07-14 14:29 | disposition home or self-care (01) ==
PROVIDERS: Emergency Provider Family Medicine; PCP Nurse Practitioner
DX: R07.89 Other chest pain (principal); I10 Essential (primary) hypertension; Z79.82 Long term (current) use of aspirin; Z87.891 Personal history of nicotine dependence; F03.90 Unspecified dementia, unspecified severity, without behavioral disturbance, psychotic disturbance, mood disturbance, and anxiety; I25.10 Atherosclerotic heart disease of native coronary artery without angina pectoris; E78.2 Mixed hyperlipidemia; J44.9 Chronic obstructive pulmonary disease, unspecified
CPT/HCPCS: 36415; 71045; 80053; 81003; 83690; 84484; 85025; 93005; 96374; 99285; J0360

== ENCOUNTER → 2023-09-13 15:16 | Outpatient (BNVA) | payer MEDICARE, MEDICAID, SELFPAY | PROVIDERS: PCP Nurse Practitioner; Visit Provider Nurse Practitioner | DX: F33.2 Major depressive disorder, recurrent severe without psychotic features (principal); I10 Essential (primary) hypertension; E03.8 Other specified hypothyroidism | CPT/HCPCS: 80053; 80178; 84443; 85025 ==

== ENCOUNTER 2023-09-16 09:36 | Outpatient (CLI) | payer MEDICARE, MEDICAID, SELFPAY ==
--- NOTE | 2023-09-16 10:00 | USCV_ITS ---
Jason Canela Age: 68 Gender: M : 1955 Exam Date: 09/16/2023 09:30 Ordering Phys: Brannon Valladares Technologist: RA Exam Location: [facility] [place] Indication: SHORTNESS OF BREATH BP: 175 / 100 HR: 64 Rhythm: Sinus Technical Quality: Adequate MEASUREMENTS (Male / Female) Normal Values 2D ECHO LV Diastolic Diameter PLAX 7.5 cm 4.2 - 5.9 / 3.9 - 5.3 cm IVS Diastolic Thickness 1.1 cm 0.6 - 1.0 / 0.6 - 0.9 cm IVS Systolic Thickness 1.8 cm LVPW Diastolic Thickness 1.6 cm 0.6 - 1.0 / 0.6 - 0.9 cm LVPW Systolic Thickness 3.1 cm LVOT Diameter 2.0 cm LV Ejection Fraction 2D Teich 76.9 % LV Ejection Fraction MOD 2C 55.6 % LV Ejection Fraction 2C AL 0.0 % LA Diameter 4.3 cm RA Systolic Volume 4C AL 23.2 ml RA Systolic Volume 4C MOD 22.7 ml Aorta at Sinotubular Diameter 3.0 cm IVC Diameter 1.4 cm M-MODE LA Ao Ratio MM 1.0 AV Cusp Separation MM 2.2 cm DOPPLER AV Peak Velocity 173.0 cm/s LVOT Peak Velocity 103.0 cm/s AV Area Cont Eq vti 1.8 cm squared AV Area Cont Eq pk 1.9 cm squared MV Peak Velocity 118.0 cm/s MV Area PHT 2.8 cm squared Mitral E to A Ratio 0.8 TR Peak Velocity 179.0 cm/s TR Peak Gradient 12.8 mmHg TR Mean Velocity 140.0 cm/s TR Mean Gradient 8.3 mmHg TR Velocity Time Integral 49.1 cm TV Peak E Velocity 60.0 cm/s Right Atrial Pressure 3.0 mmHg Pulmonary Artery Systolic Pressu 15.8 mmHg RV Ejection Time 0.3 s FINDINGS Left Ventricle Normal left ventricular size and systolic function, EF 56% . No regional wall motion abnormalities. Grade I/IV diastolic dysfunction (abnormal relaxation filling pattern), normal to mildly elevated filling pressures. Right Ventricle The right ventricle is normal in size and function. Right Atrium The right atrium is normal in size. Left Atrium Mildly increased left atrial size. Mitral Valve Mild mitral valve regurgitation. Aortic Valve Thickened aortic valve. Aortic valve sclerosis. Tricuspid Valve No gross abnormalities noted. Trace tricuspid valve regurgitation. Pulmonic Valve No gross abnormalities noted Pericardium Normal pericardium without effusion. Aorta Normal ascending aorta dimension. IVC The inferior vena cava appears normal. CONCLUSIONS Normal left ventricular size and systolic function, EF 56% . No regional wall motion abnormalities. Grade I/IV diastolic dysfunction (abnormal relaxation filling pattern), normal to mildly elevated filling pressures. Mildly increased left atrial size. Mildly increased left atrial size. Thickened aortic valve. Aortic valve sclerosis. There is no pericardial effusion. There are no intracardiac masses. Estimated pulmonary artery peak systolic pressure, possibly within normal limits. Compared to the study from 03/15/2020, no significant change in the 2D findings. Dr Bobo Keller MD [facility] (Electronically Signed) Final Date: 19 September 2023 18:12 S
== END 2023-09-16 09:37 | disposition home or self-care (01) ==
LOC: RAD 09:37
PROVIDERS: PCP Nurse Practitioner; Visit Provider Nurse Practitioner
DX: I51.7 Cardiomegaly (principal); R06.02 Shortness of breath
CPT/HCPCS: 93306

== ENCOUNTER 2023-09-24 08:47 | Outpatient (CLI) | payer MEDICARE, MEDICAID, SELFPAY ==
--- NOTE | 2023-09-24 08:45 | USCV_ITS ---
Jason Canela Age: 68 Gender: M : 1955 Exam Date: 09/24/2023 09:02 Ordering Phys: Brannon Valladares Technologist: NIKI [place] [facility] [place]ication: HTN Aortic Velocity @ SMA (cm/s) 98.6 RIGHT KIDNEY LEFT KIDNEY Velocity (cm/s) Velocity (cm/s) Sys/Gandhi Sys/Gandhi Resistive Index Resistive Index 81.7 / 11.2 0.86 Proximal Renal Artery 102.2 / 35.3 0.65 110.5 / 30.4 0.72 Mid Renal Artery 73.2 / 37.1 0.49 113.7 / 36.8 0.68 Distal Renal Artery 69.6 / 28.0 0.60 57.2 / 20.2 0.65 Hilar 66.0 / 19.0 0.71 35.7 / 15.3 0.57 Upper Pole 52.7 / 20.6 0.61 37.7 / 14.4 0.62 Mid Pole 36.1 / 9.2 0.75 65.7 / 26.4 0.60 Lower Pole 46.2 / 20.3 0.56 Accleration Index (cm/sec2) 154.20 Hilar 519.90 120.10 Upper Pole 152.70 134.00 Mid Pole 124.90 185.50 Lower Pole 275.50 140.0 Kidney Length (mm) 133.0 CONCLUSIONS Normal kidney dimensions bilaterally. No hyronephrosis No sonographic evidence of hemodynamically significant renal artery stenosis bilaterally. Norbert Jacobsen MD (Electronically Signed) Final Date: 24 September 2023 16:30 S
== END 2023-09-24 08:48 | disposition home or self-care (01) ==
LOC: RAD 08:47
PROVIDERS: PCP Nurse Practitioner; Visit Provider Nurse Practitioner
DX: I10 Essential (primary) hypertension (principal)
CPT/HCPCS: 93975

== ENCOUNTER 2023-09-28 10:19 | Oncology outpatient (recurring) (ONCR) | payer MEDICARE, MEDICAID, SELFPAY ==
[2023-09-28 11:46] LABS: Basophils % 1.2 %; Eosinophils # 0.1 10^3/uL (0.0-0.8); Eosinophils % 3.1 %; Hematocrit 45.5 % (37-53); Lymphocytes # 0.6 10^3/uL (0.8-4.8); Lymphocytes % 33.7 %; Mean Corpuscular HGB Conc 31.6 g/dL (30-55); Mean Corpuscular Hemoglobin 29.9 pg (27-33); Mean Corpuscular Volume 94.4 fl (82-101); Mean Platelet Volume 9.9 fL (7.4-10.4); Monocytes # 0.3 10^3/uL (0.2-0.9); Monocytes % 17.8 %; Neutrophils % 44.2 %; Nucleated Red Blood Cells % 0 %; Platelet Count 203 10^3/cmm (157-399); Red Blood Count 4.82 10^6/uL (3.85-5.65); Red Cell Distribution Width 11.9 % (12.1-15.1); White Blood Count 1.63 10^3/uL (3.29-11.43)
[2023-09-28 12:05] LABS: Alanine Aminotransferase 13 U/L (0-41); Albumin Level 3.7 g/dL (3.5-5.2); Alkaline Phosphatase 79 U/L (40-130); Anion Gap 11.5 (5-19); Aspartate Amino Transferase 14 U/L (0-40); Blood Urea Nitrogen 9 mg/dL (8-23); Calcium 9.3 mg/dL (8.5-10.5); Carbon Dioxide 27 mmol/L (22-29); Chloride 105 mmol/L (98-107); Creatinine Clr Calc Pharmacy 118.6509; Globulin 3.6 g/dL (1.3-4.6); Glomerular Filtration Rate 112.5 mL/min (90-130); Glucose 95 mg/dL (65-115); Lactate Dehydrogenase 118 U/L (135-225); Osmolality Calculated 286 mOsm/kg (285-295); Potassium 4.5 mmol/L (3.5-5.1); Sodium 139 mmol/L (136-145); Total Bilirubin 0.5 mg/dL (0.15-1.2); Total Protein 7.3 g/dL (6.6-8.7)
[2023-09-28 12:06] LABS: Neutrophils # 0.72 10^3/uL (1.8-7.7)
[2023-09-28 12:09] LABS: Erythrocyte Sedimentation Rate 17 mm/hr (0-10)
[2023-09-28 12:24] LABS: LAB Peripheral Smear Sent for Review
[2023-09-28 13:15] LABS: Vitamin B12 314 pg/mL (232-1245)
[2023-09-30 12:20] LABS: Anti-Nuclear Antibody Pattern Nuclear, Homogeneous; Anti-Nuclear Antibody Screen POSITIVE (NEGATIVE)
[2023-09-30 19:40] LABS: Copper Level 89 mcg/dL (70-175)
[2023-10-01 13:53] LABS: Methylmalonic Acid 568 nmol/L (87-318)
== END 2023-10-17 23:59 | disposition home or self-care (01) ==
PROVIDERS: Internal Medicine Medical Oncology; PCP Nurse Practitioner; Visit Provider Nurse Practitioner
DX: D70.9 Neutropenia, unspecified (principal); M25.50 Pain in unspecified joint; Z87.891 Personal history of nicotine dependence
CPT/HCPCS: 36415; 80053; 82525; 82607; 83615; 83921; 85025; 85651; 86038; 86140; 99215

== ENCOUNTER 2023-11-08 13:22 | Oncology outpatient (recurring) (ONCR) | payer MEDICARE, MEDICAID, SELFPAY ==
[2023-11-08 13:48] LABS: Basophils % 0.9 %; Eosinophils # 0.1 10^3/uL (0.0-0.8); Eosinophils % 2.3 %; Hematocrit 44.8 % (37-53); Lymphocytes # 0.8 10^3/uL (0.8-4.8); Lymphocytes % 34.9 %; Mean Corpuscular HGB Conc 32.6 g/dL (30-55); Mean Corpuscular Hemoglobin 29.6 pg (27-33); Mean Corpuscular Volume 90.9 fl (82-101); Monocytes # 0.4 10^3/uL (0.2-0.9); Monocytes % 16.5 %; Neutrophils % 44.9 %; Nucleated Red Blood Cells % 0 %; Platelet Count 223 10^3/cmm (157-399); Red Blood Count 4.93 10^6/uL (3.85-5.65); White Blood Count 2.18 10^3/uL (3.29-11.43)
[2023-11-08 13:59] LABS: Neutrophils # 0.98 10^3/uL (1.8-7.7)
[2023-11-08 14:04] LABS: Alanine Aminotransferase 13 U/L (0-41); Albumin Level 3.7 g/dL (3.5-5.2); Alkaline Phosphatase 84 U/L (40-130); Anion Gap 9.1 (5-19); Aspartate Amino Transferase 16 U/L (0-40); Blood Urea Nitrogen 9 mg/dL (8-23); Calcium 9.3 mg/dL (8.5-10.5); Carbon Dioxide 26 mmol/L (22-29); Chloride 108 mmol/L (98-107); Erythrocyte Sedimentation Rate 24 mm/hr (0-10); Globulin 3.5 g/dL (1.3-4.6); Glomerular Filtration Rate 96.4 mL/min (90-130); Glucose 99 mg/dL (65-115); Lactate Dehydrogenase 127 U/L (135-225); Osmolality Calculated 287 mOsm/kg (285-295); Potassium 4.1 mmol/L (3.5-5.1); Sodium 139 mmol/L (136-145); Total Bilirubin 0.5 mg/dL (0.15-1.2); Total Protein 7.2 g/dL (6.6-8.7)
[2023-11-10 10:09] LABS: Anti-Nuclear Antibody Pattern Nuclear, Homogeneous; Anti-Nuclear Antibody Screen POSITIVE (NEGATIVE)
== END 2023-11-16 23:59 | disposition home or self-care (01) ==
LOC: ONCMED 13:22
PROVIDERS: Internal Medicine Medical Oncology; PCP Nurse Practitioner; Visit Provider Nurse Practitioner
DX: D70.9 Neutropenia, unspecified (principal)
CPT/HCPCS: 36415; 80053; 83615; 85025; 85651; 86038; 86140

== ENCOUNTER → 2023-11-17 14:42 | Outpatient (BNVA) | payer MEDICARE, MEDICAID, SELFPAY | PROVIDERS: PCP Nurse Practitioner; Referring Provider Nurse Practitioner; Visit Provider Internal Medicine | DX: R07.9 Chest pain, unspecified (principal); I25.119 Atherosclerotic heart disease of native coronary artery with unspecified angina pectoris; I70.90 Unspecified atherosclerosis; Z87.891 Personal history of nicotine dependence; E78.2 Mixed hyperlipidemia; I10 Essential (primary) hypertension; I45.9 Conduction disorder, unspecified; R94.31 Abnormal electrocardiogram [ECG] [EKG] | CPT/HCPCS: 93005; 99204 ==

== ENCOUNTER 2023-12-15 09:05 | Oncology outpatient (recurring) (ONCR) | payer MEDICARE, MEDICAID, OTHER, SELFPAY ==
[2023-12-15 09:33] LABS: Basophils % 0.4 %; Eosinophils # 0.1 10^3/uL (0.0-0.8); Eosinophils % 2.7 %; Hematocrit 45.8 % (37-53); Lymphocytes # 0.8 10^3/uL (0.8-4.8); Lymphocytes % 34.1 %; Mean Corpuscular HGB Conc 32.8 g/dL (30-55); Mean Corpuscular Hemoglobin 30.1 pg (27-33); Mean Corpuscular Volume 91.8 fl (82-101); Mean Platelet Volume 9.9 fL (7.4-10.4); Monocytes # 0.4 10^3/uL (0.2-0.9); Monocytes % 16.6 %; Neutrophils # 1.02 10^3/uL (1.8-7.7); Neutrophils % 45.8 %; Nucleated Red Blood Cells % 0 %; Platelet Count 210 10^3/cmm (157-399); Red Blood Count 4.99 10^6/uL (3.85-5.65); White Blood Count 2.23 10^3/uL (3.29-11.43)
[2023-12-15 09:57] LABS: Alanine Aminotransferase 15 U/L (0-41); Albumin Level 3.8 g/dL (3.5-5.2); Alkaline Phosphatase 86 U/L (40-130); Anion Gap 10.3 (5-19); Aspartate Amino Transferase 14 U/L (0-40); Blood Urea Nitrogen 8 mg/dL (8-23); Calcium 9.3 mg/dL (8.5-10.5); Carbon Dioxide 29 mmol/L (22-29); Chloride 107 mmol/L (98-107); Globulin 3.8 g/dL (1.3-4.6); Glomerular Filtration Rate 96.4 mL/min (90-130); Glucose 103 mg/dL (65-115); Osmolality Calculated 293 mOsm/kg (285-295); Potassium 4.3 mmol/L (3.5-5.1); Sodium 142 mmol/L (136-145); Total Bilirubin 0.6 mg/dL (0.15-1.2); Total Protein 7.6 g/dL (6.6-8.7)
[2023-12-15 10:18] LABS: Lactate Dehydrogenase 134 U/L (135-225)
== END 2023-12-17 23:59 | disposition home or self-care (01) ==
PROVIDERS: Internal Medicine Medical Oncology; PCP Nurse Practitioner; Visit Provider Nurse Practitioner
DX: D70.9 Neutropenia, unspecified (principal); Z53.9 Procedure and treatment not carried out, unspecified reason
CPT/HCPCS: 36415; 80053; 83615; 85025; 99214

== ENCOUNTER → 2024-04-06 15:07 | Outpatient (BNVA) | payer MEDICARE, MEDICAID, SELFPAY | PROVIDERS: PCP Nurse Practitioner; Visit Provider Nurse Practitioner | DX: Z79.899 Other long term (current) drug therapy (principal); I10 Essential (primary) hypertension; E53.9 Vitamin B deficiency, unspecified; D70.9 Neutropenia, unspecified | CPT/HCPCS: 80048; 82607; 83036; 85025 ==

== ENCOUNTER → 2024-09-14 14:54 | Outpatient (BNVA) | payer MEDICARE, MEDICAID, OTHER, SELFPAY | PROVIDERS: PCP Nurse Practitioner; Visit Provider Nurse Practitioner | DX: E78.2 Mixed hyperlipidemia (principal); E03.8 Other specified hypothyroidism | CPT/HCPCS: 80053; 82607; 84443 ==

== ENCOUNTER → 2024-11-29 12:20 | Outpatient (BNVA) | payer MEDICARE, MEDICAID, OTHER, SELFPAY | PROVIDERS: PCP Nurse Practitioner; Visit Provider Nurse Practitioner | DX: N39.46 Mixed incontinence (principal) | CPT/HCPCS: 81000 ==

== ENCOUNTER → 2025-04-02 11:16 | Outpatient (BNVA) | payer MEDICARE, MEDICAID, OTHER, SELFPAY | PROVIDERS: PCP Nurse Practitioner; Visit Provider Nurse Practitioner | DX: Z79.899 Other long term (current) drug therapy (principal); E78.2 Mixed hyperlipidemia | CPT/HCPCS: 80061; 80178; 83036; 84443 ==